=== PATIENT | female | born 1985 | race Caucasian/White ===

== ENCOUNTER 2016-10-09 19:03 | Inpatient (IN) | payer OTHER ==
[~2016-10-09] VITALS: Ht 170.2 cm; Wt 85.7 kg
[~2016-10-09 19:03] MED LIST: AMOX500T2 PO; NAPR500T PO; TRAM50TA2 PO
[2016-10-09 19:14] VITALS: BP 125/80; PULSE 122; RESP 14; O2SAT 96
--- NOTE | 2016-10-09 21:03 | ED.REPORT ---
HPI-General Illness Date of Service October 09, 2016 ED Provider: Cory Bravo Patient is a 31 year old female who presents to the ED complaining of fever onset 4 days ago. Associated symptoms include difficulty breathing, pleuritic right chest pain, inability to get a deep breath, back pain, abdominal pain, and chills. She denies cough, sputum, nausea, vomiting, or any other symptoms. Family at home has pneumonia. She does not have a hx of asthma. She is still using IV heroin, and smokes cigarettes. Nursing Notes Stated Complaint: HARD TO BREATH,PAIN,FEVER Chief Complaint: FLU/Cold Symptoms Nursing Notes Reviewed: Yes Allergies: Coded Allergies: Sulfa (Sulfonamide Antibiotics) (Verified Allergy, Unknown, 02/24/15) Scheduled PRN Tramadol (Tramadol) 50 Mg Tablet 100 MG PO Q6H PRN PRN For Pain General Time Seen by MD: 21:03 Chief Complaint Fever Hx Obtained From: Patient Arrived By: Walk-in Sudden in Onset?: Yes Onset Occurred: 4 days ago Symptom Duration: Since onset Past Medical History Past Medical History Denies Denies: Asthma Reports: Heroin use, IV Drug use Past Surgical History denies Family History Noncontributory Smoking History Current Every Day Smoker Social History Alcohol Use: "Social" Drug Use: In recovery, IV drugs, Other Occupation lives with friend, no work or school Ambulatory Status Independent Review of Systems Full Review of Systems Constitutional: Reports: Chills, Fever Respiratory: Reports: Shortness of breath, Denies: Non-productive cough GI: Reports: Abdominal pain, Denies: Nausea, Vomiting Musculoskeletal: Reports: Back pain Complete sys rev & neg: except as marked. Physical Exam Vital Signs Vital Signs Date Time Temp Pulse Resp B/P Pulse Ox O2 Delivery O2 Flow Rate FiO2 10/09/16 23:30 37 111 33 111/75 91 Room Air 10/09/16 22:18 99 18 96 Room Air 10/09/16 22:16 101 30 102/62 100 Room Air 10/09/16 21:05 38.2 121 18 93/65 95 Room Air 10/09/16 19:14 37.9 122 14 125/80 96 Room Air Initial VS: Reviewed General/Constitutional: Well-developed, Well-nourished Head / Eyes: Atraumatic, Normocephalic Skin: Warm, Dry ENT: Airway patent, Pharynx NL Mouth: Positive: Mucous membranes dry Neck: No adenopathy Respiratory / Chest: No respiratory distress fremitus and rales on the R Cardiovascular: Heart sounds NL, No gallop, No murmurs, No rubs Heart Rate / Rhythm: Positive: Tachycardia Abdomen: Atraumatic, Soft, Non-tender Upper Extremities Upper Extremity / MS: Inspection NL Track knox Lower Extremity / Pelvis / MS: No edema Interpretation & Diagnostics Lab Results Interpretation Result Diagram: 10/09/16212510/09/162125 Test 10/09/16 21:26 10/09/16 21:55 10/09/16 23:44 White Blood Count 5.8th/mm3 (3.8-10.1) Red Blood Count 4.06mil/mm3 (3.90-5.20) Hemoglobin 12.2g/dL (12.0-15.6) Hematocrit 34.4% (35.0-46.0) Mean Corpuscular Volume 84.7fL (81-100) Mean Corpuscular Hemoglobin 30.0pg (27.0-35.0) Mean Corpuscular Hemoglobin Concent 35.5% (32.0-37.0) Red Cell Distribution Width 12.6% (12.3-15.4) Platelet Count 140bil/L (150-400) Neutrophils (%) (Auto) 85.4% (40-74) Lymphocytes (%) (Auto) 5.3% (14-46) Monocytes (%) (Auto) 7.9% (4-12) Eosinophils (%) (Auto) 0% (0-5) Basophils (%) (Auto) 0.2% (0-3) Prothrombin Time 10.2sec (8.1-12.5) Prothromb Time International Ratio 0.95ratio Activated Partial Thromboplast Time 33.3sec (22.8-33.0) D-Dimer 2.26mg/L FEU (<0.50) Sodium Level 122mEq/L (134-144) Potassium Level 3.6mEq/L (3.5-5.2) Chloride Level 83mEq/L (97-108) Carbon Dioxide Level 19mmol/L (18-29) Blood Urea Nitrogen 17mg/dL (6-20) Creatinine 0.68mg/dL (0.57-1.00) Estimat Glomerular Filtration Rate 145mL/min (>59) Glucose Level 101mg/dL (60-99) Osmolality 266 (275-300) Calcium Level 8.5mg/dL (8.5-10.1) Magnesium Level 2.0mg/dL (1.6-2.6) Total Bilirubin 1.1mg/dL (0.0-1.2) Aspartate Amino Transf (AST/SGOT) 49U/L (0-50) Alanine Aminotransferase (ALT/SGPT) 54U/L (0-32) Alkaline Phosphatase 117U/L (25-150) Pro-B-Type Natriuretic Peptide 245.4pg/mL (0-130) Total Protein 7.9g/dL (6.4-8.4) Albumin 2.6g/dL (3.4-5.0) Procalcitonin 17.16ng/mL (0.00-0.08) Thyroid Stimulating Hormone (TSH) 11.340uIU/mL (0.450-4.500) Lactic Acid Level 1.5mmol/L (0.4-2.0) Urine Color Dark yellow (YELLOW) Urine Appearance Hazy (CLEAR,HAZY) Urine pH 6.0 (5.0-8.0) Urine Specific [place] 1.016 (1.003-1.035) Urine Protein Tracemg/dL (NEG,TRACE) Urine Glucose (UA) Negativemg/dL (NEGATIVE) Urine Ketones Negativemg/dL (NEGATIVE) Urine Occult Blood Large (NEGATIVE) Urine Nitrite Positive (NEGATIVE) Urine Bilirubin Negative (NEGATIVE) Urine Urobilinogen Normalmg/dL (NORMAL) Urine Leukocyte Esterase Negative (NEGATIVE) Urine RBC 0-2/hpf (0-2) Urine WBC 6-10/hpf (0-5) Urine Epithelial Cells Many/hpf (NONE-MOD) Urine Crystals None seen (NONE SEEN) Urine Bacteria Many/hpf (NONE-FEW) Urine Hyaline Casts None/lpf (NONE) Urine Granular Casts None seen (NONE SEEN) Urine Waxy Casts None seen (NONE SEEN) Urine Red Blood Cell Casts None seen (NONE SEEN) Urine White Blood Cell Casts None seen (NONE SEEN) Urine Mucus None seen (None Seen) Urine Trichomonas None seen (NONE SEEN) Urine Yeast None (NONE SEEN) Urinalysis Comment None Urine Culture Reflexed Indicated Lab Results Interpretation: Flu neg ECG Interpretation ECG Interpretation: Sinus tachycardia rate 107 Time: 21:52 Interpreted by: ED physician X-Ray Chest Interpretation Chest Xray Interpretation: IMPRESSION: Small right pleural effusion with adjacent atelectasis. Cannot exclude pneumonia. Recommend clinical correlation and radiographic followup to document resolution after treatment and exclude underlying pulmonary nodule. Mild left basilar atelectasis/aspiration Dictated by: Bob Robertson M.D. on 10/09/2016 at 21:37 Approved by: Bob Robertson M.D. on 10/09/2016 at 21:41 View: AP & lat Interpretation / Wet Read by: Interpret - Radiologist CT Chest Interpretation IMPRESSION: No acute occlusive PE. Right lower lobe pneumonia and pleural effusion, statistically. Follow-up is recommended to ensure complete resolution. Sylvia Leary M.D. Study type: CT pulm angiogram Interpretation / Wet Read by: Interpret - Radiologist Procedures Peripheral / EJ IV Start Peripheral / EJ IV Start: Ultrasound guided L arm above AC Time: 22:40 Procedure Performed by: ED physician Size of Catheter: #20 Re-Eval/Medical Decision Med Decision/Clinical Course 31-year-old with chronic IV drug abuse, pleuritic chest pain and shortness of breath proves to have a sizable right pleural effusion, underlying pneumonia, an elevated d-dimer but a negative CT for embolus, and presumptively pneumonia with parapneumonic effusion. Staph has to be primarily suspect, given her IV drug abuse history. SBE is not excluded. She is begun with Zosyn and vancomycin pending blood cultures. Time of Eval: 23:00 Re-Evaluation/Progress Note: Discussed plan for admission. Patient understands and agrees with plan. All questions addressed at this time. Consultation : Referral / Consult Name: Milly Aburto DO Consulted With: Hospitalist Call Returned at: 23:58 Intern Retail: Will see patient, Agrees with eval, Agrees with plan, Accepts admit Note: Discussed pt. case. Accepts admit. Counseled Regarding: Diagnosis, Lab results, Need for admission Discharge & Departure Primary Impression: Pneumonia Pneumonia type: due to unspecified organism Laterality: unspecified laterality Lung location: unspecified part of lung Qualified Code: J18.9 - Pneumonia, unspecified organism Additional Impressions: Intravenous drug abuse Pleural effusion Disposition: ADMITTED TO HOSPITAL Discharge Condition All VS Reviewed: Yes Condition: Improved Referrals: NOPCP (PCP) Scribe Attestation Portions of this note were transcribed by Franck Bain. I, Dr. Ray personally performed the history, physical exam and medical decision-making; I reviewed and confirmed the accuracy of the information in the transcribed note. Signed by: Franck Bain 10/09/16, 2359 Dave Ray MD October 09, 2016 21:03 FRANCK BAIN October 09, 2016 21:10
[2016-10-09 21:05] VITALS: BP 93/65; PULSE 121; RESP 18; O2SAT 95
[2016-10-09] MEDS ORDERED: 0.9% Sodium Chloride 1,000 ML IV ONE ×2 (21:09→21:55)
[2016-10-09] MEDS ORDERED: Albuterol 2.5 mg/3 mL Inhalation Solution NEB ONE (21:10)
[2016-10-09] MEDS ORDERED: Albuterol-Ipratropium 3 mL Inhalation Solution NEB ONE (21:10)
[2016-10-09 21:31] LABS: BASOPHILS % (AUTO) 0.2 % (0-3); EOSINOPHILS % (AUTO) 0 % (0-5); MONOCYTES % (AUTO) 7.9 % (4-12); Mean Corpuscular Volume 84.7 fL (81-100); NEUTROPHILS % (AUTO) 85.4 % (40-74); Platelet Count 140 bil/L (150-400)
--- NOTE | 2016-10-09 21:42 | DRSVH ---
PROCEDURE: X-RAY CHEST, TWO VIEWS ([id number]) INDICATIONS: cough, fever, rt sided cp TECHNIQUE: 2 views of the chest were acquired. COMPARISON: None. FINDINGS: Surgical changes and devices: None. Lungs and pleura: Small right pleural effusion with adjacent atelectasis. No pneumothorax. Left basi lar scattered patchy opacities without focal consolidation Mediastinum: Mediastinal contours are normal. Heart size is normal. Bones and chest wall: No suspicious bony abnormalities. Soft tissues appear unremarkable. IMPRESSION: Small right pleural effusion with adjacent atelectasis. Cannot exclude pneumonia. Recomme nd clinical correlation and radiographic followup to document resolution after treatment and exclude underlying pulmonary nodule. Mild left basilar atelectasis/aspiration Dictated by: Bob Robertson M.D. on 10/09/2016 at 21:37 Approved by: Bob Robertson M.D. on 10/09/2016 at 21:41
[2016-10-09 21:58] LABS: D-Dimer 2.26 mg/L FEU (<0.50); INR 0.95 ratio
[2016-10-09 22:16] VITALS: BP 102/62; PULSE 101; RESP 30; O2SAT 100
[2016-10-09 22:18] VITALS: PULSE 99; RESP 18; O2SAT 96
[2016-10-09 23:30] VITALS: BP 111/75; PULSE 111; RESP 33; O2SAT 91
[2016-10-09 23:51] LABS: APPEARANCE,URINE HAZY (CLEAR,HAZY); COLOR,URINE DARK YELLOW (YELLOW); OCCULT BLOOD,URINE LARGE (NEGATIVE); UROBILINOGEN,URINE NORMAL (NORMAL)
[2016-10-09] MEDS ORDERED: Vancomycin Dose per Pharmacist XX ONE (23:55)
[2016-10-09] MEDS ORDERED: Piperacillin-Tazo 3.375 Gm Inj 3.375 GM in Dextrose 5% Minibag Plus 50 ML IV ONE (23:55)
[2016-10-10] VITALS (15 sets, daily range): BP systolic 105–127; BP diastolic 51–76; PULSE 89–121; RESP 18–26; O2SAT 89–97
[2016-10-10] MEDS ORDERED: Vancomycin Inj 1,500 MG in 0.9% Sodium Chloride 500 ML IV ONE (00:05)
[2016-10-10] MEDS ORDERED: Alum-Mag Hydrox-Simeth 30 mL Suspension PO PRN (00:10)
[2016-10-10] MEDS ORDERED: Ondansetron 2 mg/mL 2 mL Inj IVPUSH PRN (00:10)
[2016-10-10] MEDS ORDERED: Albuterol 2.5 mg/3 mL Inhalation Solution NEB PRN (00:30)
[2016-10-10] MEDS: Heparin 5,000 Unit/mL Inj SUBQ SCH ×3 (01:14→16:27)
--- NOTE | 2016-10-10 01:37 | PCM.HPMED ---
Subjective Date of Service October 10, 2016 Primary Provider: Admitting Physician: Primary Care Physician: Mraii Attending Physician: Admit Status: From the Emergency Department, Full Admit Chief Complaint: Fever. . History of Present Illness: Sarah Melendez is a 31-year-old female who presented to [facility] emergency department complaining of fever 4 days. She reports that 3 days ago she began having fevers. She reports that on the second day she could not take a deep breath due to pleuritic chest pain. She has had associated chills, pleuritic chest pain, difficulty breathing, and rib cage pain. She denies headache, vision changes, sore throat, cough, chest pain, abdominal pain, nausea , vomiting, dysuria, diarrhea or constipation. She reports decreased appetite, however, she has been very thirsty and drinking lots of fluids. She reports that her roommate has pneumonia and she has been in close contact. She does not have a history of asthma. She is still using IV heroin twice daily. She reports she uses clean needles that she receives from the [employer]. She denies sharing needles. She last used IV heroin yesterday. Vital signs in the ER: Temperature 37.9. Pulse 122. Respiratory rate 14. Blood pressure 125/80. Pulse ox 96% on room air. She received Zosyn 3.375 g 1 , vancomycin 1, DuoNeb 1, AccuNeb 1, and Tylenol 975 mg 1. No PCP. Review of Systems: A comprehensive review of systems was conducted with the patient and found to be negative except as above in the History of Present Illness. . Allergies Coded Allergies: Sulfa (Sulfonamide Antibiotics) (Verified Allergy, Unknown, 02/24/15) PMH 1. IV drug abuse. 2. History of Hypothyroidism. 3. Depression and anxiety. 4. Migraines. 5. History of abscesses status post I&D. . Surgical History 1. Incision and drainage of abscess x 2. . Family History Her mother has hypothyroidism. Father is healthy as far she knows. She has 2 brothers and one sister who are all healthy. . Social History Hx Alcohol Use: Yes (has not drank in several years) Hx Substance Use: Yes (IV heroin, smokes methamphetamines) Hx Tobacco Use: Yes Smoking Status: Current Every Day Smoker (1/2 PPD 13 years) Additional Information She is single and has 2 sons, ages 12 and 6 respectively. Her mother takes care of her sons. She is currently unemployed. . Exam Vital Signs Vital Sign - Last Date Time Temp Pulse Resp B/P Pulse Ox O2 Delivery O2 Flow Rate FiO2 10/09/16 23:30 37 111 33 111/75 91 Room Air Intake and Output 10/09/16 10/09/16 10/10/16 Cumulative From/Thru 15:00 23:00 07:00 10/09/16 19:14 - 10/09/16 23:30 Intake Total 1000 ml 1000 ml 2000 ml Balance 1000 ml 1000 ml 2000 ml Intake IV Total 1000 ml 1000 ml 2000 ml Exam General: Young female lying in bed, pale, diaphoretic, slightly shivering, in no acute distress, well-developed, well-nourished, appropriately interactive. HEENT: Normocephalic, atraumatic. External ears without defect. Pupils equal, round, and reactive to light. Anicteric sclerae, moist conjunctivae, and no lid lag. Oropharynx free of erythema and cobble stoning with moist mucosa. Neck: Supple with full range of motion. No lymphadenopathy or thyromegaly. Cardiovascular: Regular rhythm, tachycardic, without murmurs, rubs, or gallops appreciated Pulmonary: Absent breath sounds at right base. Otherwise clear to auscultation bilaterally without crackles, wheezes, or rhonchi. Normal respiratory effort with no use of accessory muscles. Abdomen: Soft, nontender, nondistended, bowel sounds present. No hepatosplenomegaly or masses appreciated. Extremities: No clubbing, cyanosis, or edema. Skin: Normal temperature, turgor, and texture; no rash, ulcers, or subcutaneous nodules appreciated. Lymph: No cervical or supraclavicular lymphadenopathy Neurological: Cranial nerves grossly intact. Normal muscle strength, tone, and bulk. Reflexes, coordination, and sensory function within normal limits. No known gait impairment. Psychiatric: Normal mood and flat affect. Alert and oriented to person, place, and time. . Lab and Diagnostics Labs Item Value Date Time Urine Color Dark yellow 10/09/162343 Urine Appearance Hazy 10/09/162343 Urine pH 6.0 10/09/162343 Urine Specific [place] 1.016 10/09/162343 Urine Protein Trace mg/dL 5/13/17 2344 Urine Glucose (UA) Negative mg/dL 10/09/16 2344 Urine Ketones Negative mg/dL 10/09/16 2344 Urine Occult Blood Large 10/09/16 2344 Urine Nitrite Positive 10/09/16 2344 Urine Bilirubin Negative 10/09/16 2344 Urine Urobilinogen Normal mg/dL 10/09/16 2344 Urine Leukocyte Esterase Negative 10/09/16 2344 Urine RBC 0-2 /hpf 10/09/16 2344 Urine WBC 6-10 /hpf 10/09/16 2344 Urine Epithelial Cells Many /hpf 10/09/16 2344 Urine Crystals None seen 10/09/16 2344 Urine Bacteria Many /hpf 10/09/16 2344 Urine Hyaline Casts None /lpf 10/09/16 2344 Urine Granular Casts None seen 10/09/16 2344 Urine Waxy Casts None seen 10/09/16 2344 Urine Red Blood Cell Casts None seen 10/09/16 2344 Urine White Blood Cell Casts None seen 10/09/16 2344 Urine Mucus None seen 10/09/16 2344 Urine Trichomonas None seen 10/09/16 2344 Urine Yeast None 10/09/16 2344 Urinalysis Comment None 10/09/16 2344 Urine Culture Reflexed Indicated 10/09/16 2344 Item Value Date Time Lactic Acid Level 1.5 mmol/L 10/09/162154 Calcium Level 8.5 mg/dL 10/09/162125 Magnesium Level 2.0 mg/dL 10/09/162125 Total Bilirubin 1.1 mg/dL 10/09/162125 Aspartate Amino Transf (AST/SGOT) 49 U/L 10/09/162125 Alanine Aminotransferase (ALT/SGPT) 54 U/L H 10/09/162125 Alkaline Phosphatase 117 U/L 10/09/162125 Pro-B-Type Natriuretic Peptide 245.4 pg/mL H 10/09/162125 Total Protein 7.9 g/dL 10/09/162125 Albumin 2.6 g/dL L 10/09/162125 Procalcitonin 17.16 ng/mL H 10/09/162125 Item Value Date Time Prothrombin Time 10.2 sec 10/09/162125 Prothromb Time International Ratio 0.95 ratio 10/09/162125 Activated Partial Thromboplast Time 33.3 sec H 10/09/162125 D-Dimer 2.26 mg/L FEU H 10/09/162125 Result Diagram: 10/09/16212510/09/162125 Microbiology Urine culture pending. Blood culture 3 pending. Rapid influenza screen negative. Respiratory viral PCR pending. MRSA pending screen. Strep pneumoniae and legionella urine antigens pending. . X-Rays, CTs and MRIs X-RAY CHEST, TWO VIEWS IMPRESSION: Small right pleural effusion with adjacent atelectasis. Cannot exclude pneumonia. Recommend clinical correlation and radiographic followup to document resolution after treatment and exclude underlying pulmonary nodule. Mild left basilar atelectasis/aspiration Dictated by: Bob Robertson M.D. on 10/09/2016 at 21:37 CTA by Natalie read: IMPRESSION: No acute occlusive PE. Right lower lobe pneumonia and pleural effusion, statistically. Follow-up is recommended to ensure complete resolution. Jesus Manuel Regalado 12-lead ECG EKG: Sinus tachycardia, heart rate 107, normal axis, normal intervals, no pathological Q waves or acute ischemic changes such as ST elevation or depression. . Assessment & Plan Sarah Melendez is a 31-year-old female who presented to [facility] emergency department complaining of fever 4 days. 1. Acute fever, present on admission. Active. - Patient presented for fever 4 days with accompanying chills, shortness of breath, and right rib cage pain. - Likely secondary to parapneumonic effusion and RLL pneumonia. - Chest x-ray demonstrated small right effusion with adjacent atelectasis, as above. Reviewed personally. - CTA demonstrated no evidence of PE with right lower lobe pneumonia and pleural effusion, as above. - Lactic acid normal. - Blood cultures 3 pending. - Pro calcitonin highly elevated at 17.16. - Urinalysis indicated culture, however, sample was contaminated as there were many epithelial cells. - Ordered MRSA screen, pending. - Ordered viral respiratory PCR, pending. - Ordered strep pneumoniae and legionella urine antigens, pending. - Ordered HIV and hepatitis C serologies. - Ordered DuoNeb's 4 times a day while awake and AccuNeb's every 4 hours as needed for shortness of breath. - Low threshold for CT abdomen and pelvis if rib pain worsens. - Hydrocodone 5-10 mg every 4 hours as needed for pain. - Continue Zosyn 3.375 mg every 8 hours and vancomycin per pharmacy - The patient will likely need a thoracentesis tomorrow for drainage of her large parapneumonic effusion. 2. Acute hyponatremia, present on admission. Active. - Patient appears euvolemic on clinical exam and is asymptomatic. Hyponatremia is likely SIADH. - Ordered urine sodium, urine osmolality and serum osmolality. - Placed patient on a fluid restriction of 1 L. - Patient received 2 L NS in ED. - Day team to consider consulting nephrology if hyponatremia persists. Chronic problems: 3. IV heroin abuse, chronic. Active. - Patient reports last using IV heroin yesterday and smoking methamphetamines 4 days ago. - Ordered urine drug screen, pending. - Hydrocodone 5 mg every 4 hours as needed for pain. 4. History of hypothyroidism. - The patient states that she has not been on medication for her hypothyroidism for over a year. - Ordered TSH, pending. PRN antiemetics: Zofran and Maalox. PRN bowel regimen: Senna and MiraLAX. PRN analgesics: Tylenol and hydrocodone. Patient is admitted under inpatient status with expected length of stay greater than 2 midnights due to severity of presenting symptoms, risk of adverse event, and complexity of treatment plan. . Resuscitation Status: CPR: Attempt Resuscitation Attending Statement The patient was seen and examined together with Dr. Jain on 10/10/2016 and I agree with the history, exam and plan as outlined in the note above. Phuong Jain DO October 10, 2016 00:15 Milly Aburto DO October 10, 2016 04:44
--- NOTE | 2016-10-10 01:39 | PCM.CONPHA ---
Subjective Date of Service: October 10, 2016 Reason for Pharmacy Consult: Vancomycin Dosing Objective Vital Signs Date Time Temp Pulse Resp B/P Pulse Ox O2 Delivery O2 Flow Rate FiO2 10/10/16 00:54 36.8 121 20 112/51 93 Room Air 10/10/16 00:40 111 20 127/76 97 Room Air 10/09/16 23:30 37 111 33 111/75 91 Room Air 10/09/16 22:18 99 18 96 Room Air 10/09/16 22:16 101 30 102/62 100 Room Air 10/09/16 21:05 38.2 121 18 93/65 95 Room Air 10/09/16 19:14 37.9 122 14 125/80 96 Room Air Intake and Output 10/08/16 10/09/16 10/10/16 00:00 00:00 00:00 Intake Total 2000 ml Balance 2000 ml Weight (Kilograms): 77.27 Height (Feet): 5 Height (Inches): 7 Test 10/09/16 21:26 10/09/16 21:55 10/09/16 23:44 10/10/16 01:04 White Blood Count 5.8th/mm3 (3.8-10.1) Red Blood Count 4.06mil/mm3 (3.90-5.20) Hemoglobin 12.2g/dL (12.0-15.6) Hematocrit 34.4% (35.0-46.0) Mean Corpuscular Volume 84.7fL (81-100) Mean Corpuscular Hemoglobin 30.0pg (27.0-35.0) Mean Corpuscular Hemoglobin Concent 35.5% (32.0-37.0) Red Cell Distribution Width 12.6% (12.3-15.4) Platelet Count 140bil/L (150-400) Neutrophils (%) (Auto) 85.4% (40-74) Lymphocytes (%) (Auto) 5.3% (14-46) Monocytes (%) (Auto) 7.9% (4-12) Eosinophils (%) (Auto) 0% (0-5) Basophils (%) (Auto) 0.2% (0-3) Prothrombin Time 10.2sec (8.1-12.5) Prothromb Time International Ratio 0.95ratio Activated Partial Thromboplast Time 33.3sec (22.8-33.0) D-Dimer 2.26mg/L FEU (<0.50) Sodium Level 122mEq/L (134-144) Potassium Level 3.6mEq/L (3.5-5.2) Chloride Level 83mEq/L (97-108) Carbon Dioxide Level 19mmol/L (18-29) Blood Urea Nitrogen 17mg/dL (6-20) Creatinine 0.68mg/dL (0.57-1.00) Estimat Glomerular Filtration Rate 145mL/min (>59) Glucose Level 101mg/dL (60-99) Calcium Level 8.5mg/dL (8.5-10.1) Magnesium Level 2.0mg/dL (1.6-2.6) Total Bilirubin 1.1mg/dL (0.0-1.2) Aspartate Amino Transf (AST/SGOT) 49U/L (0-50) Alanine Aminotransferase (ALT/SGPT) 54U/L (0-32) Alkaline Phosphatase 117U/L (25-150) Pro-B-Type Natriuretic Peptide 245.4pg/mL (0-130) Total Protein 7.9g/dL (6.4-8.4) Albumin 2.6g/dL (3.4-5.0) Procalcitonin 17.16ng/mL (0.00-0.08) Lactic Acid Level 1.5mmol/L (0.4-2.0) Urine Color Dark yellow (YELLOW) Urine Appearance Hazy (CLEAR,HAZY) Urine pH 6.0 (5.0-8.0) Urine Specific [place] 1.016 (1.003-1.035) Urine Protein Tracemg/dL (NEG,TRACE) Urine Glucose (UA) Negativemg/dL (NEGATIVE) Urine Ketones Negativemg/dL (NEGATIVE) Urine Occult Blood Large (NEGATIVE) Urine Nitrite Positive (NEGATIVE) Urine Bilirubin Negative (NEGATIVE) Urine Urobilinogen Normalmg/dL (NORMAL) Urine Leukocyte Esterase Negative (NEGATIVE) Urine RBC 0-2/hpf (0-2) Urine WBC 6-10/hpf (0-5) Urine Epithelial Cells Many/hpf (NONE-MOD) Urine Crystals None seen (NONE SEEN) Urine Bacteria Many/hpf (NONE-FEW) Urine Hyaline Casts None/lpf (NONE) Urine Granular Casts None seen (NONE SEEN) Urine Waxy Casts None seen (NONE SEEN) Urine Red Blood Cell Casts None seen (NONE SEEN) Urine White Blood Cell Casts None seen (NONE SEEN) Urine Mucus None seen (None Seen) Urine Trichomonas None seen (NONE SEEN) Urine Yeast None (NONE SEEN) Urinalysis Comment None Urine Culture Reflexed Indicated Assessment/Plan Assessment/Plan Vancomycin management per pharmacy Indication: pneumonia Vancomycin trough goal: 15-20 Nephrotic risks: IV drug use Pertinent info: - SCr: 0.68 - Procalcitonin: 17.16 - WBC: 5.8 - Patient received loading dose of vancomycin 1500 mg IV one time at 0114. Give vancomycin 1250 mg Q8H starting at 0830. Trough has been ordered for 10/11 @ 0000 (30 min prior to 4th dose). Pharmacy to continue to monitor and dose vancomycin. Thank you, Deisy Calzada Pharmacist Deisy Calzada October 10, 2016 01:39
[2016-10-10 01:42] LABS: OSMOLALITY, URINE 265 mOs/kH2O (250-1200)
[2016-10-10] MEDS: HYDROcodone-APAP 5-325 mg Tablet PO PRN ×2 (01:51→09:04)
--- NOTE | 2016-10-10 01:54 | NUR ---
MRSA and Respiratory PCR SENT
[2016-10-10] MEDS: Piperacillin-Tazo 3.375 Gm Inj 3.375 GM in Dextrose 5% Minibag Plus 50 ML IV SCH ×3 (02:00→16:26)
--- NOTE | 2016-10-10 02:08 | NUR ---
Admission Note Pt admitted to [facility] on wheelchair from ER at 0050. Alert and orientedx3, c/o right back pain 10/10 r/o cough or deep breathing, mild SOB, denies cough/n/v/fever, but feel "cold". BP 112/51 HR 121, RR20, [id number]% on RA, T 36.8. Coarse lung sounds at left, decreased lung sounds at right. Tele applied, ST 124 per cnc service technician. HR regular, no murmur. Abdomen soft, non tender, BT slightly hypoactive. No edema at all extremities. Zosyn and Vanco administered. Jackson given after received the order. Pt placed on contact precaution to r/o MRSA. Pt instructed fluid restriction 1000ml/24hr. Call light oriented to pt. Care ongoing.
--- NOTE | 2016-10-10 03:04 | NUR ---
Skin flushed Skin flushed, diffused redness at upper chest and face, denies itchy. T 38.3. Vanco running, not sure redness caused by fever or red man syndrome r/o vanco. Dr. Jain notified, does not think it caused by vanco. Tylenol requested.
[2016-10-10] MEDS: Acetaminophen IV 1,000 MG in IV Premix 1 EACH IV PRN ×3 (03:14→22:38)
[2016-10-10] MEDS: Albuterol-Ipratropium 3 mL Inhalation Solution NEB SCH ×4 (07:47→19:42)
[2016-10-10] MEDS ORDERED: Vancomycin Dose per Pharmacist XX SCH (08:30)
--- NOTE | 2016-10-10 08:35 | DRSVH ---
PROCEDURE: CT ANGIO CHEST PULMONARY EMBOLISM ([id number]) INDICATIONS: Right pleural effusion and elevated d-dimer. TECHNIQUE: After the administration of intravenous contrast, 2 mm thick sections acquired from the pulmonary api charito to the posterior costophrenic angles. 3-dimensional maximum intensity projection (MIP) coronal a nd sagittal reformats were then acquired through the thorax. For radiation dose reduction, the follo wing was used: automated exposure control, adjustment of mA and/or kV according to patient size. COMPARISON: [facility], CR, XR CHEST 2VW, 10/09/2016, 21:31. FINDINGS: Image quality: There is mild motion artifact. Pulmonary arteries: Pulmonary arteries demonstrate no intraluminal filling defects to suggest centra l pulmonary embolism. Evaluation of subsegmental branches is limited due to motion artifact and airs pace consolidation in the lung bases. Lungs and pleura: There are moderate to large right and trace left pleural effusions. There is conf luent consolidation within the right lower lobe with air bronchograms. Patchy areas of consolidation are also demonstrated within the inferior right middle lobe, left lower lobe and left lingula. A fe w small peripheral nodular opacities within the anterior right middle lobe and left lingula are also noted. Mild compressive atelectasis is demonstrated in the right lung along with pleural effusion. Mediastinum: Heart size is normal, without pericardial effusion. No mediastinal or hilar adenopathy . Thoracic aorta is normal in caliber and enhancement. Esophagus is normal in caliber, with a small hiatal hernia. Bones and chest wall: No suspicious bony lesions. Ribs and thoracic spine appear intact throughout. No axillary or supraclavicular adenopathy. Abdomen: Visualized upper abdomen demonstrates enlargement of the spleen and possible enlargement of the liver, which are both incompletely included on the current study. IMPRESSION: 1. No evidence of central pulmonary embolism. Evaluation of distal subsegmental branches is limited due to motion artifact and airspace consolidation. 2. Moderate to large right pleural effusion and trace left effusion. 3. Bibasilar consolidation most prominent within the right lower lobe most likely represents pneumon ia. 4. A few peripheral small nodular opacities demonstrated in the right middle lobe and left lingula a re also likely related to pneumonia. Consider short-term followup to demonstrate resolution if clinic ally indicated. 5. Splenomegaly with suggestion of hepatomegaly. Recommend correlation clinically and if indicated further evaluation may be obtained with ultrasound. Dictated by: Ambrocio Hill M.D. on 10/10/2016 at 8:20 Approved by: Ambrocio Hill M.D. on 10/10/2016 at 8:28
[2016-10-10 08:52] LABS: BASOPHILS % (AUTO) 0.2 % (0-3); EOSINOPHILS % (AUTO) 0 % (0-5); MONOCYTES % (AUTO) 6.4 % (4-12); Mean Corpuscular Hemoglobin 29.6 pg (27.0-35.0); Mean Corpuscular Volume 85.2 fL (81-100); NEUTROPHILS % (AUTO) 88.9 % (40-74); Platelet Count 120 bil/L (150-400)
[2016-10-10] MEDS: Vancomycin Inj 1,250 MG in 0.9% Sodium Chloride 250 ML IV SCH ×2 (09:02→16:27)
[2016-10-10 09:25] LABS: Magnesium 2.2 mg/dL (1.6-2.6)
[2016-10-10] MEDS ORDERED: levoFLOXacin Inj 750 MG in IV Premix 1 EACH IV SCH (10:45)
--- NOTE | 2016-10-10 11:09 | PCM.PNMED ---
Subjective Date of Service October 10, 2016 Subjective 4 days of fever without cough, admitted with multifocal pneumonia, UTI, red blotchy spot anterior r mcrae, current IV heroin use. Notes pleuritic chest pain, no cough, no dysuria. Exam Vital Signs Vital Sign - Last Date Time Temp Pulse Resp B/P Pulse Ox O2 Delivery O2 Flow Rate FiO2 10/10/16 10:37 37.1 104 20 121/72 94 Room Air Intake and Output 10/09/16 10/09/16 10/10/16 Cumulative From/Thru 15:00 23:00 07:00 10/09/16 19:14 - 10/10/16 04:23 Intake Total 1000 ml 1671 ml 2671 ml Balance 1000 ml 1671 ml 2671 ml IV Total 1000 ml 1671 ml 2671 ml Exam Skin; multiple neddle knox in lines over viens red raised slightly tender erythematous lesion, 3-4 cm round, ant mcrae right, ink knox to border applied today CV; questionalble soft systolic murmur Resp; bronquial breath souds and decreased breath sound right side, no rhonch or wheezing GI; soft non avute, not tender Neuro 2-12 intact, no gross motor or sensory defects Lab and Diagnostics Result Diagram: 10/10/16 0815 10/10/16 0815 Microbiology Urine culture pending. Blood culture 3 pending. Rapid influenza screen negative. Respiratory viral PCR pending. MRSA pending screen. Strep pneumoniae and legionella urine antigens pending. . X-Rays, CTs and MRIs X-RAY CHEST, TWO VIEWS IMPRESSION: Small right pleural effusion with adjacent atelectasis. Cannot exclude pneumonia. Recommend clinical correlation and radiographic followup to document resolution after treatment and exclude underlying pulmonary nodule. Mild left basilar atelectasis/aspiration Dictated by: Bob Robertson M.D. on 10/09/2016 at 21:37 CTA by Natalie read: IMPRESSION: No acute occlusive PE. Right lower lobe pneumonia and pleural effusion, statistically. Follow-up is recommended to ensure complete resolution. Sylvia Leary M.D . 12-lead ECG EKG: Sinus tachycardia, heart rate 107, normal axis, normal intervals, no pathological Q waves or acute ischemic changes such as ST elevation or depression. . Assessment & Plan Sarah Melendez is a 31-year-old female who presented to [facility] emergency department complaining of fever 4 days. 1-Sepsis, poa, resolved -HR >100, RR 30 -UTI an multifocl pneumonia with effusion, red blotche spot on ant r mcrae -look for unifying infection; echo ordered, blood cultures pending, HIV testing , ID consult ordered for tomorrow 2- Multifocal pneumonia, poa, active -on Vanco and Zosyn, add Levaquin -pcr resp negative -cultures pending -cxr in am, if any worse pulmonary consult 3. Right pleural effusion, poa, active -diagnostic and therapeutic thoracentesis ordered 4 UTI, poa, active -again asymptomatic -above antibiotics shoudl cover -cullt is gram neg rods so far 5.Red area anterior R mcrae, poa, active -ink applied to borders follow 6. Hyponatremia, poa, resolved 7.Hypothyroidism, poa, active -patient has not been on her thyroid for several months -await t4, noting elevated TSH -check t4 consider startin synthroid 8- elevated liver function tests' poa, active -hepaatitis panel sent 9-Pain management, -dilaudid 2-4 PO q 4 hour prn 10- IV heroin use, poa, active -social service Patient is admitted under inpatient status with expected length of stay greater than 2 midnights due to severity of presenting symptoms, risk of adverse event, and complexity of treatment plan. . VTE Mechanical Devices: Intermittant Pneumatic CD Resuscitation Status: CPR: Attempt Resuscitation Louisa Em MD October 10, 2016 11:09
--- NOTE | 2016-10-10 14:39 | NUR ---
Social Work: Brief Note Data: Pt is a 31 y/o female admitted for RLL pneumonia pleural effusion IVDA SIRS. Pt's PCP is not listed, pt's insurance is [employer]. EMR reviewed. Pt reports current IV heroin and meth use. BLOW DOWN OPERATOR spoke with pt's nurse, pt not appropriate for assessment today. BLOW DOWN OPERATOR will follow up with Chemical Dependency assessment when appropriate. Assessment: Pt who is independent at baseline. IV drug use. Plan: BLOW DOWN OPERATOR spoke with pt's nurse, pt not appropriate for assessment today. BLOW DOWN OPERATOR will follow up with Chemical Dependency assessment when appropriate. LASHAUN Fernandez
--- NOTE | 2016-10-10 18:18 | NUR ---
Temp/Pain/O2 Pt afebrile during shift until mid afternoon, temp 100.6 F, pt flushed and diaphoretic. IV APAP given and upon recheck, temp 98.3 F. Pt c/o increased back pain rating it at 9/10. 1 norco administered in am, and newly ordered PO dilaudid given in afternoon. After administration of dilaudid, pt slept soundly for several hours, and O2 sat was high 80s on RA. 2L O2 NC applied and Cpox put on. Sats increased to the mid 90s. Pt woke up to use the bathroom, removed O2, and has been sitting up eating dinner, when awake sats back to high 90s on RA.
[2016-10-11] VITALS (14 sets, daily range): BP systolic 102–118; BP diastolic 65–78; PULSE 85–110; RESP 16–30; O2SAT 91–97
[2016-10-11] MEDS ORDERED: 0.9% Sodium Chloride 250 ML ONE
[2016-10-11] MEDS ORDERED: Vancomycin Serum Trough XX ONE
[2016-10-11] MEDS: Piperacillin-Tazo 3.375 Gm Inj 3.375 GM in Dextrose 5% Minibag Plus 50 ML IV SCH ×2 (00:06→10:05)
[2016-10-11] MEDS: Heparin 5,000 Unit/mL Inj SUBQ SCH ×3 (00:07→17:11)
[2016-10-11] MEDS: Vancomycin Inj 1,250 MG in 0.9% Sodium Chloride 250 ML IV SCH ×2 (01:29→10:05)
--- NOTE | 2016-10-11 05:21 | NUR ---
Fever Pt had an episode of fever from the start of shift. Per WHALE TRAINER pt had 37.8. Pt reports of feeling hot. IV tylenol administered PRN. Rechecked and has been afebrile from the rest of the shift. Pt reports of pain on her back 02/06. Administered Dilaudid 4mg PRN for pain control. No complains upon re-assessment. HS IV Abx administered as scheduled. Fluid restriction per MD orders. Hourly rounding.
[2016-10-11 06:17] LABS: BASOPHILS % (AUTO) 0.2 % (0-3); EOSINOPHILS % (AUTO) 0.9 % (0-5); MONOCYTES % (AUTO) 12.2 % (4-12); Mean Corpuscular Hemoglobin 29.8 pg (27.0-35.0); Mean Corpuscular Volume 85.6 fL (81-100); NEUTROPHILS % (AUTO) 77.1 % (40-74); Platelet Count 113 bil/L (150-400)
[2016-10-11 07:08] LABS: Hepatitis A Antibody IgM Negative (Negative); Hepatitis B Core Antibody IgM Negative (Negative)
[2016-10-11 07:16] LABS: ERYTHROCYTE SEDIMENTATION RATE 60 mm/hr (0-32)
[2016-10-11] MEDS: Albuterol-Ipratropium 3 mL Inhalation Solution NEB SCH ×4 (07:29→17:34)
[2016-10-11] MEDS ORDERED: Potassium Chloride 20 mEq SR Tablet PO ONE (07:45)
--- NOTE | 2016-10-11 09:03 | DRSVH ---
PROCEDURE: US GUIDED THORACENTESIS BY REFERRING PHYSICIAN ([id number]) INDICATIONS: pleural effusion rt TECHNIQUE: The indications, alternatives, benefits, risks, and complications of the procedure were explained to the patient. Written informed consent was obtained and placed in the chart. The chest was examined sonographically, and an appropriate site was chosen for thoracentesis. The skin was prepared and bernard ped in the usual sterile fashion, and 1% lidocaine was infiltrated from the skin down through the ple ural surface. A 19-gauge catheter-covered needle was then introduced into the pleural space, the cat heter was advanced and the needle was withdrawn, and thereafter pleural fluid was aspirated. The cat heter was then removed and a dressing was applied. COMPARISON: None. FINDINGS: Access site: Right hemithorax. Needle: One-Step centesis catheter with introducer needle. Fluid volume and description: 20 cc. Purulent fluid. Fluid sent for diagnostic testing: Cytology and multiple chemistries. Medications: 1% lidocaine for local anaesthesia. Complications: None; post-procedural chest radiograph is pending to assess for pneumothorax. IMPRESSION: Successful ultrasound-guided thoracentesis. Dr. Ponce telephoned with results at 0845 hrs. 10/11/2016. Dictated by: Jam COTO Interpreted: Ja Workman MD on 10/11/2016 at 9:01 Transcribed by: FLORES on 10/11/2016 at 9:03 Approved by: Ja Workman M.D. on 10/11/2016 at 10:47
--- NOTE | 2016-10-11 09:25 | DRSVH ---
PROCEDURE: X-RAY CHEST ONE VIEW ([id number]) INDICATIONS: POST THORACENTESIS TECHNIQUE: One view of the chest was acquired. COMPARISON: [facility], CT, CT ANGIO CHEST PE, 10/09/2016, 22:51. [facility] , CR, XR CHEST 2VW, 10/09/2016, 21:31. FINDINGS: Surgical changes and devices: None. Lungs and pleura: No pneumothorax. There is a small right effusion with right basilar consolidation. Mild bibasilar infiltrate or atelectasis. Mediastinum: Mediastinal contours appear normal. Heart size is normal. Bones and chest wall: No suspicious bony lesions. Overlying soft tissues appear unremarkable. IMPRESSION: No pneumothorax post thoracentesis. Dictated by: Ja Workman M.D. on 10/11/2016 at 9:21 Approved by: Ja Workman M.D. on 10/11/2016 at 9:23
[2016-10-11 09:41] LABS: MONOCYTES,BODY FLUID 0 %; OTHER CELLS,BODY FLUID 0
[2016-10-11 10:03] LABS: GLUCOSE,PLEURAL FLUID < 2 mg/dL; TOTAL PROTEIN,PLEURAL FLUID 4.8 g/dL
--- NOTE | 2016-10-11 13:11 | ABG ---
DateTimeAnalyzed 13:04:00 -_ pH ____7.456 - 7.350 7.450 pCO2 ___38.1__ -mmHg 35.0 45.0 pO2 ___58.5__ -mmHg 70.0 100 HCO3- ___26.5__ -mmol/L 22.0 26.0 ABE ____3.0__ -mmol/L -2.0 2.0 tHb ___12.3__ -g/dL 12.0 18.0 O2Hb ___90.3__ -% 95.0 COHb ____1.2__ -% 1.5 MetHb ____0.9__ -% 0.4 1.5 sO2 ___92.2__ -% FIO2 ___21.0__ -% Drawn By lw - Date/Time Notified____ 13:11:00 -_ Notified By lw - Notified Whom ___Dr. Best - B 756 -mmHg tO2 ___15.6__ -Vol% Bruce test _Positive -
[2016-10-11] MEDS ORDERED: cefTRIAXone Inj 2,000 MG in Dextrose 5% Minibag Plus 50 ML IV SCH ×2 (13:30→13:35)
[2016-10-11] MEDS ORDERED: HYDROmorphone 0.5 mg/0.5 mL iSecure Syringe IVPUSH PRN (13:35)
[2016-10-11] MEDS ORDERED: levoFLOXacin Inj 750 MG in IV Premix 1 EACH IV SCH (14:00)
[2016-10-11 14:10] LABS: Bilirubin, Direct 0.7 mg/dL (0.0-0.3)
--- NOTE | 2016-10-11 14:13 | NUR ---
Faxed clinicals to [facility] [phone] REF # [id number]
--- NOTE | 2016-10-11 15:09 | PCM.CHPMED ---
Subjective Date of Service: October 11, 2016 Provider requesting consult: Sherrell Ponce DO Primary Physician: Admitting Physician: Milly Aburto DO Primary Care Physician: Nopcp Attending Physician: Milly Aburto DO Chief Complaint: Chief Complaint: Right sided pneumonia History of Present Illness: PULMONOLOGY CONSULTATION: Patient is a 31 year old female with a history of IV heroin use, hypothyroidism , depression/anxiety, and migraine. She presented to [facility] on 10/09/16 with about 2 days of worsening shortness of breath. At the time of this interview the patient is rather somnolent making this history brief and possibly unreliable. Patient reported shortness of breath and right sided chest pain worse with deep inspiration. She has the same dyspnea both at rest and with activity. She also noted fever and rigors but no sweats. She has been fatigued with a diminished appetite. She denies wheezing, cough and sputum production. Ancillary complaints include redness of her left hand, an erythematous nodule of her right mcrae and left knee pain. Since being admitted she believes that she feels better in regards to her dyspnea and appetite. Detailed pulmonary/exposure history could not be obtained as the patient would fall asleep between questions. She did deny any history of asthma. She is a smoker with 1/2PPD history for the past 13 years. Patient does use both IV heroin (daily?) and inhaled methamphetamine. No current use of alcohol was elucidated. Review of Systems: Constitutional: Reports: Chills, Fever, Weakness, Denies: Sweats Cardiovascular: Reports: Chest Pain (right sided, worse with inspiration), Denies: Edema, Irregular Heart Rate Respiratory: Reports: SOB with Exertion, Shortness of Breath, Denies: Cough, Sputum, Wheezing Gastrointestinal: Denies: Abdominal Pain, Diarrhea, Nausea, Vomiting Genitourinary: Denies: Dysuria, Hematuria Musculoskeletal: Reports: Back Pain, Knee Pain (left) PMH Past Medical History 1. IV drug abuse. 2. History of Hypothyroidism. 3. Depression and anxiety. 4. Migraines. 5. History of abscesses status post I&D. Surgical History 1. Incision and drainage of abscess x 2. Home Medications Recorded in EMR: Tramadol 100 mg Q6H PRN pain Allergies: Coded Allergies: Sulfa (Sulfonamide Antibiotics) (Verified Allergy, Unknown, 02/24/15) Family History Family History Her mother has hypothyroidism. Father is healthy as far she knows. She has 2 brothers and one sister who are all healthy. Social History Hx Alcohol Use: Yes (has not drank in several years)Hx Substance Use: Yes (IV heroin, smokes methamphetamines)Hx Tobacco Use: Yes Smoking Status: Current Every Day Smoker (1/2 PPD 13 years) Exam Vital Signs Vital Sign - Last Date Time Temp Pulse Resp B/P Pulse Ox O2 Delivery O2 Flow Rate FiO2 10/11/16 14:11 37.3 105 18 113/68 94 Room Air 10/11/16 12:04 1.00 Intake and Output 10/10/16 10/10/16 10/11/16 Cumulative From/Thru 15:00 23:00 07:00 10/09/16 19:14 - 10/11/16 06:30 Intake Total 400 ml 1947 ml 543 ml 5561 ml Output Total 800 ml 1200 ml 2000 ml Balance -400 ml 747 ml 543 ml 3561 ml Intake Oral 400 ml 1160 ml 1560 ml IV Total 787 ml 543 ml 4001 ml Output Urine Total 800 ml 1200 ml 2000 ml # Bowel Movements 1 1 General: Oriented X3, Cooperative, No Acute Distress, Other (Somnolent) Head: Normal Chest & Lungs: Clear to auscultation & percussion, Diminished breath sounds ( Most prominent over the right lower lobe) Cardiovascular: Regular Rate/Rhythm, Normal S1, Normal S2, No Murmurs/Rubs/ Gallops Pulses: Radial (present and equal bilaterally), Dorsalis Pedis (present and equal bilaterally) Abdomen: Non-tender, Non-distended, Normoactive bowel tones, Soft Genitourinary: Son Absent Extremities: No cyanosis/clubbing/edma bilat Skin: Redness (Right mcrae, left 3rd and 4th MCP), Other (Injection sites noted throughout both upper extremities most notably on the forearms and inbetween the fingers) Neurological: Normal Speech, Other (Could not fully participate in a more detailed neurological exam) Lab and Diagnostics Result Diagram: 10/11/1655410/11/16554 Assessment & Plan Assessment 1) Right lower lobe pneumonia, acute, present on admission. - Likely represents an empyema as the patient has group A strep bacteremia and thoracentesis was unsuccessful at removing a large volume. - Pleural fluid obtained appears exudative by Lights criteria (pleural fluid LDH greater than 2/3 upper limit of normal serum level). Highly suspicious for infectious etiology. - Consultation with general surgery is indicated. Patient most likely needs a VATS. - Antibiotics per Dr. Love. 2) Strep pyogenes (group A) bacteremia, acute, present on admission. - Dr. Love of infectious disease has been consulted. Please continue antibiotics per his recommendations. - TTE pending community engagement coordinator reading. If negative, consider ANNE. 3) Acute encephalopathy. - Possibly secondary to sepsis or opiate use. - ABG not showing hypercapnia, is hypoxemic on room air. - Minimize sedating medications. - Continue to monitor closely. May consider moving the patient to [facility]. - Continue O2 supplementation with an O2 saturation goal 92-96%. 4) Regions of erythema. - Right mcrae, left MCP joints, left knee. - May represent other foci of infection. The left hand is particularly concerning as she admits to injecting in that area. - Continue to monitor these areas closely. - Could consider aspiration of the left knee if it becomes more swollen or erythematous. - Continue antibiotics per Dr. Love. Problems: VTE Mechanical Devices: Intermittant Pneumatic CD Resuscitation Status: CPR: Attempt Resuscitation Attending Statement The patient was seen and examined together with Dr. Best on 10/11/2016 and I agree with the history, exam and plan as outlined in the note above. Meme Best DO October 11, 2016 15:09 Shon Carrasco MD Nov 08, 2016 09:09
--- NOTE | 2016-10-11 15:30 | NUR ---
Transfer Pt transferred from [facility] [place] [facility]010 to [facility] Rm 2024. No complains of increased pain or SOB, slight temp noted at last vitals. Report given to Jacqueline Jenkins RN.
--- NOTE | 2016-10-11 15:33 | DRSVH ---
[facility] [address] [place] [address] Echocardiogram Report Name: PAO GARCIA LStudy Date: 10/11/2016 Height: 67 in Hospital Exam Location: [facility] Weight: 171 lb Gender: Female BSA: 1.9 m2 : 1985 Age: 31 yrs BP: 102/66 mmHg Reason For Study: FEVER, IVDA History: IVDA, smoker Ordering Physician: Performed By: [facility] Interpretation Summary The left ventricle is normal in size. The ejection fraction is estimated to be 60-65%. The right ventricle is normal in size and function. No significant valvular pathology seen. No obvious valvular vegetation seen. Consider ANNE if clinical suspicion for endocarditis is high. There is a moderate right-sided pleural effusion. Procedure: A two-dimensional transthoracic echocardiogram with color flow and Doppler was performed. The study quality was technically adequate. There is no prior echocardiogram noted for this patient. The patient was in sinus tachycardia with heart rates between 100-105 bpm during the exam. Left Ventricle: The left ventricle is normal in size. Proximal septal thickening is noted. There is no echo evidence for significant left ventricular outflow tract obstruction. There is no thrombus. The ejection fraction is estimated to be 60-65%. There are no focal wall motion abnormalities. Spectral Doppler of the mitral valve shows a normal E/A wave ratio. Right Ventricle: The right ventricle is normal in size and function. Atria: Both atria are normal in size. There is no Doppler evidence for an interatrial shunt. Mitral Valve: The mitral valve is normal in structure and function. There is no vegetation seen on the mitral valve. There is trace mitral regurgitation. Aortic Valve: The aortic valve is normal in structure and function. There is no aortic valvular vegetation. No aortic regurgitation is present. Tricuspid Valve: The tricuspid valve is normal in structure and function. There is no tricuspid valve vegetation. The right ventricular systolic pressure is estimated at 28 mmHg assuming a right atrial pressure of 3 mm Hg. There is trace tricuspid regurgitation. Pulmonic Valve: The pulmonic valve is normal in structure and function. There is trace pulmonic regurgitation. Great Vessels: The aortic root is normal size. The ascending aorta is normal in size. The aortic arch is normal in size. The IVC is of normal diameter and collapses greater than 50% with a sniff. This suggests a low right atrial pressure of 3 mm Hg. Pericardium/ Pleura There is a trivial pericardial effusion noted. There are no echocardiographic indications of cardiac tamponade. There is a moderate right-sided pleural effusion. MMode/2D Measurements & Calculations LVIDd: 4.7 cm LA dimension: 3.9 cm RA long axis LVOT diam: 2.3 cm LVIDs: 2.6 cm Ao root diam FS: 44.2 % LA A2 area: 18.4 cm RA area EPSS: 0.28 cm LA A4 area: 18.4 cm asc Aorta Diam IVSd: 1.2 cm LA length (vol) : 14.6 cm LVPWd: 0.88 cm RA vol Ao Arch Diam (Prox LA vol: 58.6 ml : 43.1 ml Trans): 2.8 cm LA vol index RA : 22.8 mm2 IVC diam: 1.3 cm LV lopez. diameter/BSA LV sys. diameter/BSA RVD1 (basal) RVD2 (mid): 2.7 cm (cm/m^2): 2.5 (cm/m^2): 1.4 Doppler Measurements & Calculations Ao V2 max MV E max abhishek MV E/A: 1.5 TR max abhishek : 171.5 cm/sec : 78.3 cm/sec Med Peak E' Abhishek : 250.5 cm/sec Ao max PG MV A max abhishek TR max PG : 11.8 mmHg : 50.8 cm/sec E/E' med: 7.3 : 25.1 mmHg Ao mean PG MV P1/2t: 39.8 msec PA V2 max : 88.9 cm/sec LVOT Max Abhishek PA mean PG : 112.9 cm/sec PA Accel Time RODDY(I,D): 2.8 cm : 0.15 sec sev ratio MV dec time MV P1/2t max abhishek Ao V2 mean LV V1 max PG : 0.14 sec : 118.4 cm/sec MVA(P1/2t): 5.5 cm2 Ao V2 VTI: 29.6 cm LV V1 VTI RODDY(V,D): 2.6 cm2 : 20.3 cm PA V2 mean RODDY indexed to BSA : 58.3 cm/sec (cm^2/m^2): 1.5 Reading Physician:ISABEL
--- NOTE | 2016-10-11 15:57 | NUR ---
[facility] to [facility] transfer Pt. transferred to [facility] at 1530. On arrival, pt. alert and LACEY. Belongings were transferred to room as well. Call light within reach.
--- NOTE | 2016-10-11 16:37 | NUR ---
Resp Pt refused Tx at this time, said she wants to sleep.
[2016-10-11] MEDS: HYDROmorphone 0.5 mg/0.5 mL iSecure Syringe IVPUSH PRN ×2 (17:12→21:09)
--- NOTE | 2016-10-11 18:25 | NUR ---
Lovenox Pt. denied pain. Black contreras has large bruising area. No drainage or oozing from R. groin cath site. Pt. performed Lovenox self-injection properly with supervision. He reported he is comfortable to give himself injection at home. Pt's questions answered. Addendum: 10/11/16 at 1829 by MARCELLA ROMERO RN Disregard the above note. Wrong patient.
[2016-10-11] MEDS: 0.9% Sodium Chloride 1,000 ML IV SCH (18:48)
--- NOTE | 2016-10-11 19:30 | CONS ---
[address] [address] CONSULTATION REPORT PATIENT: PAO GARCIA : 1985 MR#: [id number] ADMIT: 10/10/2016 JOB ID: [id number] DATE OF SERVICE: 10/11/[address] Sherrell Ponce of Internal Medicine for this timely consult. REASON FOR CONSULTATION: Left-sided group A strep empyema with a high-grade group A strep bacteremia in an IV drug user. HISTORY OF PRESENT ILLNESS: The patient is a 31-year-old who has been a frequent IV heroin user for at least six years. She uses heroin on a daily or b.i.d. basis and has up until her admission here 1-1/2 days ago. She reports that she has had some right pleuritic pain going back a couple of weeks but it has gotten much worse in the last few days and it has been associated with fevers, chills, anorexia, shortness of breath and malaise. Because of these symptoms, she eventually sought evaluation in the emergency department and was admitted on Tuesday, October 10 in the evening. At that time, she was febrile and looked quite toxic. Multiple appropriate studies were donating done including blood cultures and chest radiographs which disclosed a high-grade group A strep bacteremia as well as a large right-sided pleural effusion. The patient was initially started on antibiotics which included vancomycin and Zosyn and subsequently levo was added for reasons which are not entirely clear. ID consultation is requested at this time regarding optimal management of this process. Note that I have discussed the case in person with Dr. Carrasco of the Pulmonary service, who is also consulted, and Dr. Ponce of the hospitalist service as well as the admitting physician, Dr. Phuong Jain. PAST MEDICAL HISTORY: 1. Intravenous drug use x6 years. 2. Depression and anxiety. 3. Migraine headaches. 4. Hypothyroidism. SOCIAL HISTORY: The patient uses methamphetamine by the inhalational route as well as heroin by an IV route. She is also a tobacco smoker. She does not drink alcohol. She grew up in [place] and now lives in [place]. She is unemployed and has two children being raised by her mother. FAMILY HISTORY: Negative for tuberculosis in any 1st or 2nd-degree relatives. REVIEW OF SYSTEMS: The patient has intermittent headaches, which are now about at baseline. She denies any change in mental status. She has not had any change in vision. No sores in the mouth and she denies pharyngitis. When asked specifically if she licks needles prior to injection, the patient says "not usually", which I would interpret as positive and suggest a mechanism for this infection. The patient has no stiff neck. She is short of breath but has no cough, and she has quite severe right pleuritic chest pain which has been escalating over a period of weeks. She has anorexia but no nausea, vomiting, or diarrhea. She has no dysuria, urgency, or frequency. She has no weakness in the limbs. No swelling of the joints. She does have a couple of tender red areas including over her left 3rd and 4th proximal digits and as well as her right mcrae. At least one of these may be due to a failed injection site, but the one on the leg is unexplained. The remainder of the complete review of systems was negative. PHYSICAL EXAMINATION: Reveals an afebrile woman, temperature 37.1 right now. She was febrile, however, 38.3, during her first 24 hours here in the hospital. Pulse 91, respiratory rate 20, blood pressure 118/70, saturating 97% on 1 L. The patient's mental status is clear. She appears depressed and has a flat affect. There is no evidence for head trauma or temporal wasting. Her eyes without conjunctival hemorrhages or scleral icterus. Nose is normal. Oral cavity without thrush or pharyngitis. No hairy leukoplakia seen on the tongue. Teeth in fair repair. Neck is supple. No nodes are present. No JVD. Lungs with almost absent breath sounds on the right. Left lung is clear. Cardiac tones without any murmurs at whatsoever. Regular rate and rhythm noted. Abdomen is soft and without mass though the liver extends 3 cm below the right costal margin and it is firm and tender. No ascites is noted. She does not have a Son catheter. On her right upper arm there are two small macular erythematous areas which she states represent failed attempts at IV injection prior to admission. On her lower extremity, there is a erythematous annular 2 cm [place]a'[place] present over the mcrae which is of unknown origin. She said it was painful earlier but it is not now. Additionally, over her left dorsal hand, there is inflammation, erythema and tenderness of the proximal 3rd and 4th finger digit. There are no peripheral stigmata of endocarditis on the hands. The patient is entirely intact neurologically. There is no evidence of synovitis of any joint. She has excellent strength throughout and, as mentioned, her mental status is normal. There is no skin rash except for the ones that I just mentioned. LABORATORIES: Include white count 4700, platelet count 113,000, creatinine is 0.57. Total bilirubin 1.4. AST 67, ALT 52, alk phos 156, procalcitonin was 17 on admission, the next day 12 and today 8, so continuing a downward trend from very high levels, however. Urinalysis had 6-10 white cells and grew E. coli. In the absence of symptoms, I would term this asymptomatic bacteriuria. Her pleural fluid is extraordinary. She has an unknown white count as so far they have been unable to quantitate it, but it is primarily polys. The LDH in the pleural fluid is 12,500 with undetectable glucose which in and of itself is basically diagnostic of an empyema. Hep C antibody is positive. HIV negative. Urine Legionella and pneumococcal antigens are negative. The pleural fluid is remarkable for many white cells and gram-positive cocci have already been seen on a Gram stain. Blood cultures are growing group A strep from 3/3 bottles collected on admission. Respiratory viral PCR panel negative. MRSA panel negative. IMAGING: Images of the chest are quite extraordinary. There is an almost complete opacification of the right lung secondary to a large right pleural effusion. Bibasilar consolidation is also noted, but this may just be compressive atelectasis. A large spleen is noted as well as hepatomegaly which goes along with our physical exam regarding hepatomegaly. IMPRESSION: This is an extremely unfortunate young woman who appears to have suffered two major complications of her injection drug use. Most importantly, she has a bacteremic group A strep empyema of the right chest which is going to require decortication as well as a long course of antibiotics. Also of concern is the fact so many blood cultures were positive so quickly, which raises the possibility of endocarditis which must be excluded even though I think it is unlikely. The 2nd major problem here is that she seems to have fairly advanced hepatitis C despite her young age. She seems to have not only an enlarged tender liver with LFTs, but perhaps some splenomegaly which would suggest that this is quite chronic and perhaps a more acute problem than hepatitis C usually represents. RECOMMENDATIONS: 1. This case discussed in great detail in person with Pulmonary and Medicine teams. 2. I would stop her vancomycin, Zosyn and levofloxacin. 3. Will start her on ceftriaxone 2 g once a day which is our primary treatment for the group A strep empyema. In addition, will add some oral Flagyl in case there are anaerobes present. Note that about 1/4 of empyemas have anaerobes even though they are often difficult to prove. 4. The patient will require a transthoracic echo and if that is negative, we were going to need to consider a transesophageal echo. 5. VATS would be the preferred procedure here. Group A strep empyemas are very hard to manage with chest tubes and going directly the VATS would seem appropriate. 6. We discussed with the patient the need to stop doing IV drugs due to the fact she seems to have suffered two very serious complications this time. We also discussed that if she cannot quit doing IV heroin, she should stop licking the needles which is the probable source of this organism.
--- NOTE | 2016-10-11 22:25 | PCM.PNMED ---
Subjective Date of Service October 11, 2016 Subjective 31F with IVDU, meth abuse hx is here with pneumonia, parapneumonic effusions. She is positive for hep C, negative for HIV, US Echo showed no concern for vegetations She also has an ID consult to r/o endocarditis. Fungitell tests pending as well as pleural fluid cell cnt etc. She denies overnight fevers, chills, n/v. Exam Vital Signs Vital Sign - Last Date Time Temp Pulse Resp B/P Pulse Ox O2 Delivery O2 Flow Rate FiO2 10/11/16 04:22 37.0 10/11/16 01:07 85 20 102/66 93 Room Air 10/10/16 14:01 2.00 Intake and Output 10/10/16 10/10/16 10/11/16 Cumulative From/Thru 15:00 23:00 07:00 10/09/16 19:14 - 10/11/16 00:30 Intake Total 400 ml 1947 ml 5018 ml Output Total 800 ml 1200 ml 2000 ml Balance -400 ml 747 ml 3018 ml Intake Oral 400 ml 1160 ml 1560 ml IV Total 787 ml 3458 ml Output Urine Total 800 ml 1200 ml 2000 ml # Bowel Movements 1 1 Exam Skin; multiple needle knox in lines over veins red raised slightly tender erythematous lesion, 3-4 cm round, ant mcrae right, ink knox to border applied today, left arm and hand also have cellulitic changes CV; RRR, no s3/s4 Resp; bronquial breath souds and decreased breath sound right lower side, no rhonch or wheezing GI; soft non acute, not tender Neuro no gross motor or sensory defects psych: neg for anxiety HEENT: NCAT Eyes: PERRLA, Scleral Anicteric Mouth: Mouth Normal, Mucous Membranes dry Neck: Supple, no Thyromegaly, trachea central. IVs and Medications Medications Reviewed: Medications were reviewed in detail Lab and Diagnostics Laboratory Tests Test 10/10/16 11:50 10/11/16 00:30 10/11/16 05:55 10/11/16 08:30 Vancomycin Level Trough 9.9mcg/mL White Blood Count 4.7th/mm3 (3.8-10.1) Red Blood Count 3.89mil/mm3 (3.90-5.20) Hemoglobin 11.6g/dL (12.0-15.6) Hematocrit 33.3% (35.0-46.0) Mean Corpuscular Volume 85.6fL (81-100) Mean Corpuscular Hemoglobin 29.8pg (27.0-35.0) Mean Corpuscular Hemoglobin Concent 34.8% (32.0-37.0) Red Cell Distribution Width 13.1% (12.3-15.4) Platelet Count 113bil/L (150-400) Neutrophils (%) (Auto) 77.1% (40-74) Lymphocytes (%) (Auto) 9.4% (14-46) Monocytes (%) (Auto) 12.2% (4-12) Eosinophils (%) (Auto) 0.9% (0-5) Basophils (%) (Auto) 0.2% (0-3) Erythrocyte Sedimentation Rate 60mm/hr (0-32) Sodium Level 134mEq/L (134-144) Potassium Level 3.1mEq/L (3.5-5.2) Chloride Level 96mEq/L (97-108) Carbon Dioxide Level 24mmol/L (18-29) Blood Urea Nitrogen 8mg/dL (6-20) Creatinine 0.57mg/dL (0.57-1.00) Estimat Glomerular Filtration Rate 177mL/min (>59) Glucose Level 120mg/dL (60-99) Calcium Level 8.1mg/dL (8.5-10.1) Magnesium Level 2.0mg/dL (1.6-2.6) Total Creatine Kinase 30U/L (21-215) Procalcitonin 8.01ng/mL (0.00-0.08) Free Thyroxine 0.33ng/dL (0.82-1.77) Human Chorionic Gonadotropin, Qual Negative (Negative) Body Fluid Source Pleural fluid Body Fluid Color Straw (Clear) Body Fluid Appearance Turbid Body Fluid WBC /mm3 Body Fluid RBC /mm3 Body Fluid Polynuclear WBCs 87% Body Fluid Lymphocytes 7% Body Fluid Monocytes 0% Body Fluid Eosinophils 6% Body Fluid Basophils 0% Body Fluid Comment Pleural Fluid Total Protein 4.8g/dL Pleural Fluid Glucose < 2mg/dL Microbiology 10/09/16 Blood Culture - Preliminary, Resulted Strep Pyogenes Beta (Grp A) 10/11/16 Fungal Culture, Received Pending 5/14/17 MRSA (PCR) - Final, Complete 10/09/16 Urine Culture - Final, Complete Escherichia Coli Result Diagram: 10/10/16 0815 10/10/16 0815 Microbiology Urine culture pending. Blood culture 3 pending. Rapid influenza screen negative. Respiratory viral PCR pending. MRSA pending screen. Strep pneumoniae and legionella urine antigens pending. . X-Rays, CTs and MRIs X-RAY CHEST, TWO VIEWS IMPRESSION: Small right pleural effusion with adjacent atelectasis. Cannot exclude pneumonia. Recommend clinical correlation and radiographic followup to document resolution after treatment and exclude underlying pulmonary nodule. Mild left basilar atelectasis/aspiration Dictated by: Bob Robertson M.D. on 10/09/2016 at 21:37 CTA by Natalie read: IMPRESSION: No acute occlusive PE. Right lower lobe pneumonia and pleural effusion, statistically. Follow-up is recommended to ensure complete resolution. Jesus Manuel Regalado 12-lead ECG EKG: Sinus tachycardia, heart rate 107, normal axis, normal intervals, no pathological Q waves or acute ischemic changes such as ST elevation or depression. . Cardiac Echo Impressions august For Study: FEVER, IVDA History: IVDA, smoker Ordering Physician: [facility]formed [facility] Interpretation Summary The left ventricle is normal in size. The ejection fraction is estimated to be 60-65%. The right ventricle is normal in size and function. No significant valvular pathology seen. No obvious valvular vegetation seen. Consider ANNE if clinical suspicion for endocarditis is high. There is a moderate right-sided pleural effusion. Assessment & Plan Sarah Melendez is a 31-year-old female who presented to [facility] emergency department complaining of fever 4 days. 1-Sepsis, poa, resolved -HR >100, RR 30 -UTI an multifocl pneumonia with effusion, red blotche spot on ant r mcrae -Hep C positive, HIV neg -- fungitell pending -- US echo showed no concern for vegetations, she will need at ANNE. Discussed this with Dr. Saini ground water contractor salesperson new cars. He says that this is to be scheduled for the OR. Dr. minor says he will arrange for this during the OR tomorrow as he is planning to take her for a VATS procedure - Blood cx showed Group B strep pyogenes -- ID is consulted Dr. Love has seen the patient will appreciate their recommendations 2- Multifocal pneumonia, poa, active ID discontinued, Zosyn, Levaquin. They have her on Flagyl and ceftriaxone -pcr resp negative -cultures pending - CXR neg for pneumothorax -- Darrian puss 20 cc was drained per radiology. Pulmonology is consulted, they have seen the patient. Moved patient up to second floor, yellow team will see patient on 10/12. Pulmonology planning to do VATS tomorrow a.m. we will keep her nothing by mouth after midnight -- Elevated LDH, nonexistent glucose from the pleural fluid 3. Right pleural effusion, poa, active -diagnostic and therapeutic thoracentesis ordered -- -- Darrian puss 20 cc was drained per radiology. Pulmonology is consulted, will see the patient. -- Follow pleural fluid cx: Elevated LDH, nonexistent glucose from the pleural fluid 4 UTI, poa, active -again asymptomatic -above antibiotics shoudl cover -cullt is gram neg rods so far : pansensitive 5.Red area anterior R mcrae, poa, active -ink applied to borders follow 6. Hyponatremia, poa, resolved -- Most likely due to hypovolemia. -- We will start her on normal saline at 100 mL/h as she has been tachycardic and dehydrated 7.Hypothyroidism, poa, active -patient has not been on her thyroid for several months -Repeated TSH and T4: Within normal 8- elevated liver function tests' poa, active -hepaatitis panel sent: Hep C positive -- She will need to be followed up as outpatient 9-Pain management, -dilaudid 2-4 PO q 4 hour prn 10- IV heroin use, poa, active -social service Patient is admitted under inpatient status with expected length of stay greater than 2 midnights due to severity of presenting symptoms, risk of adverse event, and complexity of treatment plan. She will likely need a lengthy stay due to above complications, plan for extended Ale bx in [facility] . Pain Evaluation: Adequate Pain Control VTE Mechanical Devices: Intermittant Pneumatic CD Resuscitation Status: CPR: Attempt Resuscitation Time spent 30 min Sherrell Ponce DO October 11, 2016 05:40
[2016-10-12] VITALS (22 sets, daily range): BP systolic 97–125; BP diastolic 55–79; PULSE 69–99; RESP 16–36; O2SAT 94–100
[2016-10-12] MEDS: Heparin 5,000 Unit/mL Inj SUBQ SCH ×3 (01:12→16:30)
--- NOTE | 2016-10-12 01:15 | NUR ---
Report given and care transferred to the receiving RN (Meme Lewis) at the bedside.
[2016-10-12] MEDS: HYDROmorphone 0.5 mg/0.5 mL iSecure Syringe IVPUSH PRN ×6 (02:59→23:08)
[2016-10-12] MEDS: 0.9% Sodium Chloride 1,000 ML IV SCH ×2 (04:20→14:20)
--- NOTE | 2016-10-12 05:10 | NUR ---
PAIN C/O pain to back. Dilaudid given with some relief as patient was observed dozing. Denies SOB. Will continue to monitor closely over night.
--- NOTE | 2016-10-12 08:41 | PCM.CONSUR ---
Subjective Date of Service: October 12, 2016 History of Present Illness Surgery consult: Attending physician Dr. Bryant, resident physician Dr. Tsai Reason for consult: Possible VATS procedure Ms. Melendez is a 31 female past medical history of IV daily heroin use who presented to secondary to fever and chest pain 5 days. She states that she has had some right pruritic type chest pain for the last 2 weeks that had progressively gotten worse. At time of admission she reported associated chills , SOB or difficulty breathing secondary to pain caused by inhalation. She denied headache, vision changes, cardiac chest pain, abdominal pain, nausea/ vomiting or any GI or symptoms. ROS otherwise negative. Infectious disease of the pulmonology service are also following this case. CT of the chest showed large right pleural effusion, trace left pleural effusion. Thoracentesis done 10/10/2016 showed purulent fluid which is sent for further diagnostic testing. Per ID empyema is most likely district representative of group A strep would benefit most from VATS procedure White blood cell count has not been elevated though she has had some intermittent low-grade fevers over the last 4 days. Allergy Allergies: Coded Allergies: Sulfa (Sulfonamide Antibiotics) (Verified Allergy, Unknown, 02/24/15) Medications Tramadol (Tramadol) 50 Mg Tablet 100 MG PO Q6H PRN PRN For Pain Prescribed by: DELORES LEE MD Last Taken: Unknown Dose on 10/09/16 Discontinued Medications Amoxicillin (Amoxicillin) 500 Mg Tablet 500 MG PO TID Prescribed by: DELORES LEE MD Naproxen (Naprosyn) 500 Mg Tablet 500 MG PO BID PRN PRN For Pain Prescribed by: DELORES LEE MD Past Surgical History Surgeries: Yes (incision and drainage of abscesses 2) Patient/Family Past Surgical: Positive for:: Accept Blood Products?, Denies:: Blood Transfusions Other Pertinent Data: Past medical history: IV drug abuse History of hypothyroidism Depression and anxiety Migraines Additional Information Family history: Father, 2 brothers one sister all healthy. Mother with hypothyroidism Social history: Unmarried, lives in [place] with friends. 2 children ages 12 and 6 who are cared for by family. Unemployed. Social History Hx Alcohol Use: Yes (has not drank in several years) Hx Substance Use: Yes (IV heroin, smokes methamphetamines) Hx Tobacco Use: Yes Objective Exam Vital Signs & I/O Vital Sign- Last 8 Hours Date Time Temp Pulse Resp B/P Pulse Ox O2 Delivery O2 Flow Rate FiO2 10/12/16 04:34 37.5 99 36 118/75 Room Air 10/12/16 00:30 Supplement Oxygen Intake and Output- Last 8 Hour 10/12/16 Cumulative From/Thru 07:00 10/09/16 19:14 - 10/12/16 06:30 Intake Total 1291 ml 7727 ml Output Total 1100 ml 4575 ml Balance 191 ml 3152 ml Intake Oral 400 ml 2835 ml IV Total 891 ml 4892 ml Output Urine Total 1100 ml 4575 ml # Bowel Movements 2 4 Lab & Micro Results Laboratory Tests Test 10/11/16 08:30 10/11/16 14:20 10/12/16 05:25 Body Fluid Source Pleural fluid Body Fluid Color Straw (Clear) Body Fluid Appearance Turbid Body Fluid WBC /mm3 Body Fluid RBC /mm3 Body Fluid Polynuclear WBCs 87% Body Fluid Lymphocytes 7% Body Fluid Monocytes 0% Body Fluid Eosinophils 6% Body Fluid Basophils 0% Body Fluid Lactate Dehydrogenase 88003D/L Body Fluid Comment Pleural Fluid Total Protein 4.8g/dL Pleural Fluid Glucose < 2mg/dL Hepatitis A Antibody Total Positive (Negative) Hepatitis B Surface Antibody Reactive (.) Hepatitis B Core Total Antibody Negative (Negative) Sodium Level 134mEq/L (134-144) Potassium Level 3.3mEq/L (3.5-5.2) Chloride Level 99mEq/L (97-108) Carbon Dioxide Level 25mmol/L (18-29) Blood Urea Nitrogen 8mg/dL (6-20) Creatinine 0.46mg/dL (0.57-1.00) Estimat Glomerular Filtration Rate 227mL/min (>59) Glucose Level 93mg/dL (60-99) Calcium Level 7.8mg/dL (8.5-10.1) Microbiology 10/09/16 Blood Culture - Final, Complete Strep Pyogenes Beta (Grp A) 10/11/16 Fungal Culture, Received Pending 10/10/16 MRSA (PCR) - Final, Complete 10/09/16 Urine Culture - Final, Complete Escherichia Coli Result Diagram: 10/11/16 0555 10/12/16 0525 H&P Surgical Exam Exam General: Oriented X3, Cooperative, No Acute Distress, Other (Somnolent, flat affect) HEENT: Within normal limits & unremarkable Respiratory: Breath Sounds Diminished (markedly decreased lung sounds in all lung todd on the right, left lung clear to auscultation) Cardiac: Regular Rate/Rhythm, No Murmurs/Rubs/Gallops Abdomen: Normal bowel sounds, No masses, Other (no ascites) Assessment & Plan Assessment Assessment & Plan: 1. Right lower lobe empyema - CT imaging showed large right pleural effusion - Most likely secondary to group A strep pyogenes as seen in blood cultures - Thoracentesis showed exudative purulent fluid, cultures pending - Infectious disease following antibiotics to include ceftriaxone and Flagyl - VATS procedure, patient signed consent - Nothing by mouth - Stop heparin DVT prophylaxis prior to surgery 2. Bacteremia - Blood cultures as above - TTE read pending, if negative will need a ANNE VTE Mechanical Devices: Intermittant Pneumatic CD Resuscitation Status: CPR: Attempt Resuscitation Attending Statement: I personally interviewed and examined the pt, and I agree with Dr. Tsai's assessment and plan. Schedule for R VATS. EIMR TSAI DO October 12, 2016 08:41 Nestor Bryant MD October 14, 2016 12:57
[2016-10-12] MEDS: Albuterol-Ipratropium 3 mL Inhalation Solution NEB SCH (08:44)
[2016-10-12] MEDS ORDERED: fentaNYL-PF 50 mCg/mL 2 mL Inj ONE (08:54)
[2016-10-12] MEDS ORDERED: Rocuronium 10 mg/mL 5 mL Inj ONE (08:54)
[2016-10-12] MEDS ORDERED: Ondansetron 2 mg/mL 2 mL Inj ONE (08:54)
[2016-10-12] MEDS ORDERED: Neostigmine 1 mg/mL 10 mL Inj ONE (08:54)
[2016-10-12] MEDS ORDERED: Propofol 10,000 mCg/mL 20 mL Inj ONE (08:54)
[2016-10-12] MEDS ORDERED: Phenylephrine/NS 100 mCg/mL 10 mL Syringe IVPUSH ONE (08:54)
[2016-10-12] MEDS ORDERED: Glycopyrrolate 0.2 MG/ML 1mL Inj ONE (08:54)
--- NOTE | 2016-10-12 10:00 | PROG NOTE ---
[address] [address] PROGRESS NOTE PATIENT: PAO GARCIA : 1985 MR#: [id number] ADMIT: 10/10/2016 JOB ID: [id number] DATE: 10/12/2016 INFECTIOUS DISEASE FOLLOW UP NOTE: REASON FOR FOLLOWUP: Group A strep bacteremia with group A strep right-sided empyema. INTERVAL HISTORY: Overnight, the patient has felt a little bit better. Her fevers and chills have diminished. She continues to have right-sided pleuritic chest pain and shortness of breath but less so than previously. She is noticing some nausea and generalized malaise consistent with heroin withdrawal and recall that this patient is a fairly frequent user of heroin. No new symptoms have occurred. No skin rash specifically. PHYSICAL EXAMINATION: Reveals a woman who was having fairly significant fevers. She is now afebrile and has been for about 24 hours. Temperature 36.6, pulse 74, respiratory rate 16 down from 36 noted in the computer. Blood pressure 106/70 saturating well on room air. Overall she looks more comfortable. No conjunctival hemorrhages. No oral thrush. Neck is supple. Lungs with decreased breath sounds, dramatically so at the right base where her pleural effusion is located. Cardiac tones without murmur. No peripheral stigmata of endocarditis. Abdomen with a palpable liver edge as previously noted. LABORATORIES: Include white count of 4700, platelets 113,000 which is stable. Sed rate 60. AST is 60, ALT 48, albumin 2.3. Procalcitonin still very elevated but now down to 4.6, down from 17 on admission, so a positive trend. Creatinine 0.46. Serologic studies are interesting. The patient is immune to hepatitis A and hepatitis B as she has hepatitis A total antibody and hepatitis B surface antibody that are positive. She does have hep C by antibody and we are waiting on viral load and genotype at this point. HIV is negative. Micro includes positive blood cultures from multiple sets for group A strep. Urine grew E coli which is asymptomatic bacteriuria. The pleural fluid is culture negative but had very low glucose, very high LDH and most importantly had gram-positive cocci which is diagnostic really of group A strep empyema in this setting. IMAGING: Done yesterday shows right pleural effusion as previously noted. IMPRESSION: This is a young woman who is an IV heroin addict and presents with classic bacteremic right-sided group A strep empyema. She is starting to improve on ceftriaxone. Virtually all of these patients would require decortication rather than simple chest tube drainage due to the tenacious and destructive nature of this empyema. The patient is scheduled for a VATS today. The other concern here is group A strep endocarditis which does occur occasionally both in normals and in IV drug users. We have a transthoracic which does not show endocarditis but she certainly deserves a ANNE to help us determine her length of therapy. RECOMMENDATIONS: 1. Will continue with ceftriaxone 2 g once a day and she will probably require this for at least a couple weeks. 2. Will continue with oral Flagyl for possible uncultured anaerobes in the pleural fluid. 3. ANNE today. 4. VATS procedure today. 5. We await the hep C viral load and genotype. 6. She does not require hep A or hep B vaccines as most deep with hep C do because she is already immune either by virtue of prior disease or by immunization.
--- NOTE | 2016-10-12 10:43 | PCM.PNMED ---
Subjective Date of Service October 12, 2016 Subjective PULMONOLOGY PROGRESS NOTE Patient reports that she is feeling less short of breath this morning. She did not feel the need to use her nasal cannula last night. She did need to have the head of her bed raised to breathe more comfortably. She denies any continued chest pain. She did not note any fever or chills overnight. She does feel a bit like she is withdrawing this morning but does not further qualify her symptoms. Exam Vital Signs Vital Sign - Last Date Time Temp Pulse Resp B/P Pulse Ox O2 Delivery O2 Flow Rate FiO2 10/12/16 08:45 74 16 94 Room Air 10/12/16 08:41 36.6 106/70 10/11/16 12:04 1.00 Intake and Output 10/11/16 10/11/16 10/12/16 Cumulative From/Thru 15:00 23:00 07:00 10/09/16 19:14 - 10/12/16 06:30 Intake Total 300 ml 575 ml 1291 ml 7727 ml Output Total 975 ml 500 ml 1100 ml 4575 ml Balance -675 ml 75 ml 191 ml 3152 ml Intake Oral 300 ml 575 ml 400 ml 2835 ml IV Total 891 ml 4892 ml Output Urine Total 975 ml 500 ml 1100 ml 4575 ml # Bowel Movements 1 2 4 Exam General: Alert, Oriented X3, Cooperative, No Acute Distress Head: Normal, atraumatic HEENT: PERRLA, EOMI, sclera anicteric Chest & Lungs: Clear to auscultation & percussion, Diminished breath sounds ( Most prominent over the right lower lobe) Cardiovascular: Regular Rate/Rhythm, Normal S1, Normal S2, No Murmurs/Rubs/ Gallops Pulses: Radial (present and equal bilaterally), Dorsalis Pedis (present and equal bilaterally) Abdomen: Tender RUQ, Non-distended, Normoactive bowel tones, Soft Genitourinary: Son Absent Extremities: No cyanosis/clubbing/edema bilat Skin: Erythema improved (Right mcrae, left 4th MCP/proximal phalange), Other ( Injection sites noted throughout both upper extremities most notably on the forearms and in between the fingers) Neurological: Grossly intact with equal strength in upper and lower extremities , Cranial nerves grossly intact, Normal Speech IVs and Medications Medications Reviewed: Medications were reviewed in detail Lab and Diagnostics Result Diagram: 10/11/16 0555 10/12/16 0525 Assessment & Plan 1) Right lower lobe pneumonia, acute, present on admission. - Likely represents an empyema as the patient has group A strep bacteremia and thoracentesis was unsuccessful at removing any significant volume of fluid. - Pleural fluid obtained appears exudative by Lights criteria (pleural fluid LDH greater than 2/3 upper limit of normal serum level). Highly suspicious for infectious etiology. - Plan per Dr. Bryant of general surgery is for VATS to be performed today. - Antibiotics per Dr. Love. 2) Strep pyogenes (group A) bacteremia, acute, present on admission. - Dr. Love of infectious disease has been consulted. Please continue antibiotics per his recommendations. - ANNE ordered and pending. 3) Acute encephalopathy, improved. - Possibly secondary to sepsis or opiate use. - ABG not showing hypercapnia, is hypoxemic on room air. - Minimize sedating medications. - Continue O2 supplementation with an O2 saturation goal 92-96%. 4) Regions of erythema, improved. - Right mcrae, left MCP joints, left knee. - May represent other foci of infection. The left hand is particularly concerning as she admits to injecting in that area. - Continue to monitor these areas closely. - Could consider aspiration of the left knee if it becomes more swollen or erythematous. - Continue antibiotics per Dr. Love. 5) Polysubstance abuse. - Patient endorsing symptoms of withdrawal - likely heroin withdrawal and possibly methamphetamine. - Continue to use opiate as needed for pain control. May need to consider the addition of benzodiazepines, but will defer to the primary team for management. - Continue to encourage cessation of drug use and try to provide her with the resources to for help outside the hospital. We will continue to follow along closely with you in the care of this patient. VTE Mechanical Devices: Intermittant Pneumatic CD Resuscitation Status: CPR: Attempt Resuscitation Attending Statement The patient was seen and examined together with Dr. Best on 10/12/2016 and I agree with the history, exam and plan as outlined in the note above. Meme Bset DO October 12, 2016 10:43 Shon Carrasco MD Nov 08, 2016 11:09 and dehydrated 7.Hypothyroidism, poa, active -patient has not been on her thyroid for several months -Repeated TSH and T4: Within normal 8- elevated liver function tests' poa, active -hepaatitis panel sent: Hep C positive -- She will need to be followed up as outpatient 9-Pain management, -dilaudid 2-4 PO q 4 hour prn 10- IV heroin use, poa, active -social service Patient is admitted under inpatient status with expected length of stay greater than 2 midnights due to severity of presenting symptoms, risk of adverse event, and complexity of treatment plan. She will likely need a lengthy stay due to above complications, plan for extended Ale bx in [facility] . VTE Mechanical Devices: Intermittant Pneumatic CD Resuscitation Status: CPR: Attempt Resuscitation Meme Best DO October 12, 2016 10:43
[2016-10-12] MEDS ORDERED: KCl 40 mEq/D5W 500 mL 40 MEQ in IV Premix 500 EACH IV ONE (10:45)
--- NOTE | 2016-10-12 11:29 | PROG NOTE ---
[address] [address] PROGRESS NOTE PATIENT: PAO GARCIA : 1985 MR#: [id number] ADMIT: 10/10/2016 JOB ID: [id number] DATE: 10/12/2016 SUBJECTIVE: The reason for cardiology evaluation, I was asked by the hospitalist team and ID to do transesophageal echocardiogram to rule out endocarditis. The patient has history of IV drug abuse with IV heroin and presented with group A strep bacteremia and group A strep right-sided empyema. Dr. Love asked us to do a ANNE to rule out endocarditis. The patient denies any history of dysphagia or stomach ulcer or esophageal varices or liver cirrhosis or ascites or loose teeth or bleeding issues. At present, she is not having any chills or rigor. She denies hematuria. She denies new rash. She has some tender spot on the left dorsal aspect of her hands. Denies previous history of endocarditis. No active chest pain or worsening shortness of breath, PND, orthopnea, palpitation. PAST MEDICAL HISTORY: 1. History of IV drug abuse for six years. 2. Depression. 3. Anxiety. 4. Migraine. 5. Hypothyroidism. PAST SURGICAL HISTORY: As stated. SOCIAL HISTORY: As stated. FAMILY HISTORY: Noncontributory. ALLERGIES: The patient is allergic to SULFA. MEDICATION: In the hospital, she is gettin. Metronidazole 500 mg q.12. 2. Zosyn. 3. Vancomycin, which has been discontinued. 4. She is on albuterol inhalers as well along with Dilaudid and subcu heparin. REVIEW OF SYSTEMS: A 10-point review of systems were obtained. They are negative except as stated above. PHYSICAL EXAMINATION: 106/70, heart rate 74, respiratory rate 16-36, oxygen saturation room air 94% and no significant jaundice. Neck: No apparent JVP. Chest: Decreased air entry at the right base with dullness. CVS: Clinically S1 appears normal. P2 does not appear to be prominent. No S3. No S4. Clinically I do not appreciate any significant murmur. Abdomen: No obvious pulsatile mass. Extremities: No significant pedal edema. Vascular: No evidence of critical limb ischemia. BEREAVEMENT PROGRAM COORDINATOR: Alert, oriented to time, place and person. LABORATORIES: Sodium 134, potassium 3.3, BUN 8, creatinine 0.46. Magnesium 2.0. Procalcitonin 4.61. WBC 4.7, hemoglobin 11.6, platelets 113, INR 0.95. Echocardiogram on October 11 revealed normal size left ventricle with LV ejection fraction 60%-65%, normal right ventricular function, moderate right-sided pleural effusion without any obvious vegetation. ASSESSMENT AND PLAN: The patient has group A strep bacteremia with group G Strep right-sided empyema with history of IV drug abuse and being planned to have right empyema surgery. Dr. Love wants us to do transesophageal echocardiogram to rule out endocarditis in view of group A strep bacteremia. Benefits and risk of ANNE which includes, but not limited to, risk of bleeding, GI perforation, aspiration, anesthesia related complication, etc., and details discussed with the patient. Patient understood. All the questions were answered. She verbalizes understanding. Will recommend correction of electrolytes as well. Will proceed with ANNE with the help of anesthesia. The patient was examined in the presence of our resident Phuong. TOTAL TIME SPENT: Today about 40 minutes.
[2016-10-12] MEDS ORDERED: Lactated Ringer's 1,000 ML IV ONE ×2 (11:53→13:43)
--- NOTE | 2016-10-12 12:58 | NUR ---
Social Work Note: Continued Discharge Planning/Attempted CD Assessment Data& Assessment: EMR reviewed. Per MD in morning rounds, pt is having VATS procedure completed today. SW to follow for potential IV abx recommendations based off of ID MD consult post VATS procedure. SW met with pt at bedside to check in and assess for any unmet needs. Pt declined completing CD assessment at this time as she was resting before her procedure. Pt did confirm she is open with [facility] program and outpt services. Pt declined desire to speak with [facility] staff at bedside during this hospitalization. Pt denies any SI or thoughts of harming herself or others. SW to follow up with pt regarding CD assessment when appropriate. Pt denies any other needs at this time. SW to continue to follow. Plan: Anticipated discharge home via POV when medically ready. SW to follow for potential IV abx recommendations based off of ID MD consult post VATS procedure. SW to follow up with pt regarding CD Assessment when appropriate. Pt denies any other needs at this time. SW to continue to follow. LASHAUN Jamison
--- NOTE | 2016-10-12 13:43 | PCM.HPANE ---
Patient Data Surgeon Admitting Provider:Milly Aburto DO Attending Provider:Milly Aburto DO Primary Care Physician:Nopcp Other Provider: Reason for Visit Rll Pneumonia Pleural Effusion Ivda Sirs Ht/WT & BMI Height (Feet): 5 Height (Inches): 7.00 Weight (Kilograms): 80.600 Body Mass Index 26.92 Allergies Coded Allergies: Sulfa (Sulfonamide Antibiotics) (Verified Allergy, Unknown, 02/24/15) Past Anesthesia History Anesthesia History: Denies:: Abnormal Airway, Anesthesia Reactions, Difficult Intubation, Fam Anesthesia Reaction, Fam Malignant Hypertherm, Malignant Hyperthermia Diabetes History Hx Diabetes?: No MRSA MRSA: No Medications Hypertension Medication: No Home Meds Incl Beta Roz: No Active Scripts Tramadol 50 Mg [id number] Mg PO Q6H PRN For Pain #30 TABLET Ref 0 Prov:Dave Ray MD 04/21/15 Discontinued Scripts Naproxen (Naprosyn)500 Mg [id number] Mg PO BID PRN For Pain #60 TABLET Ref 0 Prov:Dave Ray MD 04/21/15 Amoxicillin 500 Mg [id number] Mg PO TID #60 TABLET Ref 0 Prov:Dave Ray MD 04/21/15 History History of ENT Problems?: No HEENT History: Denies:: Abnormal Airway Cataracts Difficult Intubation Dysphagia Glaucoma Hearing Problem Sinus Problem TMJ Denture Type: None Teeth Condition: Within Normal Limits Hx of Heart Problems?: No Cardiovascular History: Denies:: AICD Abdominal Aortic Aneurism Atrial Fibrillation Cardiac Surgery Chest Pain Congestive Heart Failure Coronary Artery Disease Edema Heart Murmur Hypertension Irregular Heartbeat Pacemaker Peripheral Vascular Rheumatic Fever Thrombophlebitis Valvular Heart Disease Other Cardiac History: ANNE during case to evaluate for endocarditis Hx of Respiratory Problem?: No Respiratory History: Positive for:: Pneumonia (currently, pleural effusion, ? empyema) Denies:: Tuberculosis Hx Neurologic Problems?: Yes Neurological History: Positive for:: Dizziness ("when getting up too fast") Hx of GI Problems?: No Hx of Problems?: No Female Hx: Denies:: Currently Endometriosis Pelvic Inflammatory Problems with Breasts? Hx Musculoskeletal Problems?: No Hx of Psycho/Social Problems?: Yes Psycho Social History: Positive for:: Anxiety Hx Depression Suicide Attempt (a year ago, not this time) Denies:: Bipolar Disorder Hx Surgeries?: Yes (incision and drainage of abscesses 2) Other History: Positive for:: Hospitalization (headaches) Thyroid Disease (hypothyroidism) Denies:: Cancer History Blood Transfusions: Positive for:: Accept Blood Products? Denies:: Blood Transfusions Hx Diabetes: No Hx Alcohol Use: Yes (has not drank in several years)Hx Substance Use: Yes (IV heroin, smokes methamphetamines) Smoking Status: Current Every Day Smoker (1/2 PPD 13 years) Have You Smoked inLast 12 mo: YesApprox How Many Cigarettes/day: 10 Stop/Bang S-Snoring: Do You Snore Loudly: No T-Tired: feel tired, fatigued: Yes O-Obsered: Observed not breath: No P-Blood Pressure: treated: No B- Body Mass Index > 35 kg/m2: No N- Neck Large Circumference: No G- Gender Male: No KELIN Total Score: 1 KELIN Risk Assessment: Low Risk, <3 Yes Risk Assessment Category Category 1A: Patient has history of documented sleep apnea, and HAS NOT received any narcotic, sedative or anesthesia administration during this stay. Category 1B: Patient has history of documented sleep apnea, and HAS received any narcotic , sedative or anesthesia administration during this stay Category 2: Patient has SUSPECTED Obstructive Sleep Apnea, and HAS received any narcotic , sedative or anesthesia administration during this stay. Category 3: Patient has SUSPECTED Obstructive Sleep Apnea and HAS NOT received narcotic, sedative or anesthesia administration during this stay. Category 4: Outpatient in Procedural Areas with known sleep apnea or who screen positive for High Risk via the STOP/BANG questionnaire. Exam Exam Vital Signs Vital Signs Date Time Temp Pulse Resp B/P Pulse Ox O2 Delivery O2 Flow Rate FiO2 10/12/16 11:15 36.9 84 18 108/73 96 Room Air 10/12/16 11:02 89 10/12/16 08:45 74 16 94 Room Air 10/12/16 08:41 36.6 69 36 106/70 94 Room Air 10/12/16 04:34 37.5 99 36 118/75 Room Air General Appearance: Alert, Oriented X3, Cooperative, No Acute Distress, Other ( Somnolent, flat affect) HEENT/AIRWAY: MP 2 Lungs: Clear to Auscultation, Normal Air Movement Heart: Exam Unremarkable, Regular Rate/Rhythm, No Murmurs/Rubs/Gallops Meds/Labs/Diagnostics Admission Meds Current Medications Metronidazole HCl 500 mg 500 mg Q12 PO Last administered on 10/12/16 08:36; Start 10/11/16 at 20:30 Sodium Chloride (Normal Saline) 1,000 ml @ 100 mls/hr Q10H IV Last administered on 10/11/16 18:48; Start 10/11/16 at 18:20 Labs Test 10/09/16 05:45 10/09/16 21:26 10/09/16 21:55 10/09/16 23:44 Urine Legionella pneumophilia Ag Negative (Negative) Prothrombin Time 10.2sec (8.1-12.5) Prothromb Time International Ratio 0.95ratio Activated Partial Thromboplast Time 33.3sec (22.8-33.0) D-Dimer 2.26mg/L FEU (<0.50) Osmolality 266 (275-300) Pro-B-Type Natriuretic Peptide 245.4pg/mL (0-130) Thyroid Stimulating Hormone (TSH) 11.340uIU/mL (0.450-4.500) Lactic Acid Level 1.5mmol/L (0.4-2.0) Urine Color Dark yellow (YELLOW) Urine Appearance Hazy (CLEAR,HAZY) Urine pH 6.0 (5.0-8.0) Urine Specific [place] 1.016 (1.003-1.035) Urine Protein Tracemg/dL (NEG,TRACE) Urine Glucose (UA) Negativemg/dL (NEGATIVE) Urine Ketones Negativemg/dL (NEGATIVE) Urine Occult Blood Large (NEGATIVE) Urine Nitrite Positive (NEGATIVE) Urine Bilirubin Negative (NEGATIVE) Urine Urobilinogen Normalmg/dL (NORMAL) Urine Leukocyte Esterase Negative (NEGATIVE) Urine RBC 0-2/hpf (0-2) Urine WBC 6-10/hpf (0-5) Urine Epithelial Cells Many/hpf (NONE-MOD) Urine Crystals None seen (NONE SEEN) Urine Bacteria Many/hpf (NONE-FEW) Urine Hyaline Casts None/lpf (NONE) Urine Granular Casts None seen (NONE SEEN) Urine Waxy Casts None seen (NONE SEEN) Urine Red Blood Cell Casts None seen (NONE SEEN) Urine White Blood Cell Casts None seen (NONE SEEN) Urine Mucus None seen (None Seen) Urine Trichomonas None seen (NONE SEEN) Urine Yeast None (NONE SEEN) Urinalysis Comment None Urine Culture Reflexed Indicated Test 10/10/16 01:04 10/10/16 01:42 10/10/16 08:15 10/10/16 11:50 Urine Osmolality 265mOs/kH2O (250-1200) Urine Random Sodium 10mEq/L Urine Opiates Screen Positive Urine Methadone Screen Negative Urine Barbiturates Screen Negative Urine Amphetamines Screen Positive Urine Benzodiazepines Screen Negative Urine Cocaine Metabolite Screen Negative Urine Cannabinoids Screen Negative Hepatitis A IgM Antibody Negative (Negative) Hepatitis B Surface Antigen Negative (Negative) Hepatitis B Core IgM Antibody Negative (Negative) Hepatitis C Antibody >11.0s/co ratio Hepatitis C Antibody Comment Comment (.) HIV (1&2) Ag and Ab, 4th Generation Non reactive (Non Reactive) Test 10/11/16 00:30 10/11/16 02:55 10/11/16 05:55 10/11/16 08:30 Vancomycin Level Trough 9.9mcg/mL Total Bilirubin 1.1mg/dL (0.0-1.2) Direct Bilirubin 0.7mg/dL (0.0-0.3) Aspartate Amino Transf (AST/SGOT) 60U/L (0-50) Alanine Aminotransferase (ALT/SGPT) 48U/L (0-32) Alkaline Phosphatase 221U/L (25-150) Total Protein 6.2g/dL (6.4-8.4) Albumin 2.3g/dL (3.4-5.0) White Blood Count 4.7th/mm3 (3.8-10.1) Red Blood Count 3.89mil/mm3 (3.90-5.20) Hemoglobin 11.6g/dL (12.0-15.6) Hematocrit 33.3% (35.0-46.0) Mean Corpuscular Volume 85.6fL (81-100) Mean Corpuscular Hemoglobin 29.8pg (27.0-35.0) Mean Corpuscular Hemoglobin Concent 34.8% (32.0-37.0) Red Cell Distribution Width 13.1% (12.3-15.4) Platelet Count 113bil/L (150-400) Neutrophils (%) (Auto) 77.1% (40-74) Lymphocytes (%) (Auto) 9.4% (14-46) Monocytes (%) (Auto) 12.2% (4-12) Eosinophils (%) (Auto) 0.9% (0-5) Basophils (%) (Auto) 0.2% (0-3) Erythrocyte Sedimentation Rate 60mm/hr (0-32) Magnesium Level 2.0mg/dL (1.6-2.6) Total Creatine Kinase 30U/L (21-215) Free Thyroxine 0.33ng/dL (0.82-1.77) Human Chorionic Gonadotropin, Qual Negative (Negative) Body Fluid Source Pleural fluid Body Fluid Color Straw (Clear) Body Fluid Appearance Turbid Body Fluid pH 7.1 (Not Estab.) Body Fluid WBC /mm3 Body Fluid RBC /mm3 Body Fluid Polynuclear WBCs 87% Body Fluid Lymphocytes 7% Body Fluid Monocytes 0% Body Fluid Eosinophils 6% Body Fluid Basophils 0% Body Fluid Lactate Dehydrogenase 54624U/L Body Fluid Comment Pleural Fluid Total Protein 4.8g/dL Pleural Fluid Glucose < 2mg/dL Test 10/11/16 14:20 10/12/16 05:25 Hepatitis A Antibody Total Positive (Negative) Hepatitis B Surface Antibody Reactive (.) Hepatitis B Core Total Antibody Negative (Negative) Sodium Level 134mEq/L (134-144) Potassium Level 3.3mEq/L (3.5-5.2) Chloride Level 99mEq/L (97-108) Carbon Dioxide Level 25mmol/L (18-29) Blood Urea Nitrogen 8mg/dL (6-20) Creatinine 0.46mg/dL (0.57-1.00) Estimat Glomerular Filtration Rate 227mL/min (>59) Glucose Level 93mg/dL (60-99) Calcium Level 7.8mg/dL (8.5-10.1) Procalcitonin 4.61ng/mL (0.00-0.08) Plan Impression Patient chart reviewed, patient interviewed and anesthestic plan with risks, benefits, and alternatives discussed, and informed consent obtained. NPO per Anesth. Guidelines: Yes ASA Physical Status: ASA3 Severe Disease Anesthetic Support Modalities: Fiberoptic Scope, Arterial Line Anesthetic Plan: GA Bene/Risks/Altern/Consents: Yes HP Complete Prior to Induction: Yes (PRICE) Salas Eddy MD October 12, 2016 11:53
[2016-10-12] MEDS: cefTRIAXone Inj 2,000 MG in Dextrose 5% Minibag Plus 50 ML IV SCH ×2 (14:12)
[2016-10-12] MEDS ORDERED: 0.9% Sodium Chloride 500 ML IV ONE (14:12)
[2016-10-12] MEDS ORDERED: Bupivacaine-MPF 0.25%/EPI 30 mL Inj INFILTRATE ONE (15:02)
--- NOTE | 2016-10-12 15:02 | NUR ---
Antibiotics, OR, Multidisciplinary Communication 929 - Discussed her care with the Dr. Tellez and the multidisciplinary care team. Informed them that her potassium this morning was 3.3. He said he would look into it. She had been asking if she could have a shower after her procedure. Dr. Tellez said that due to her having a chest tube post-op and needing telemetry monitoring she would not be able to take a shower. [id number] - Kalli Oscar RN took over her care temporarily so this nurse could attend mandatory education. Upon returning she said that she had contacted Pharmacist Amadou Davis regarding the patient's missing 0830 dose of IV Ceftriaxone. Was told that the plan was for the patient to go the the ED about 1330 to get a VATs procedure and ANNE completed. 1311 - Sierra from the OR called and was given a telephone report. She said they could give the Ceftriaxone once it arrived as it hadn't been given yet. Called Pharmacy and asked a second time for it to be sent. They said they could send it directly to the OR. 1321 - She was taken to the OR along with her hard chart and IVs of Normal Saline and Potassium still running. About 1410 - OR called and the Anesthesiologist was wondering why the 0830 dose of Ceftriaxone hadn't been given yet. Told them that it had been requested a couple of time from pharmacy, but hadn't arrived prior to her leaving for the OR. Addendum: 10/12/16 at 1950 by SONNY PALOMINO RN 1817 - Took report from OR nurse via phone. Was told she had two chest tubes and that the Potassium rider had been stopped during her procedures and needed to be finished. 1844 - [facility]24 and was settled into her room. The OR nurse said she just gave her a dose of Dilaudid for pain. Vitals were taken, changed her chest tube dressing as they were saturated, and placed on room air as she didn't want to keep the O2 on. Notified the shift supervisor rn nurse that an assessment hadn't been completed on her yet. Care continues.
[2016-10-12] MEDS ORDERED: Lactated Ringer's 1,000 ML IV SCH (16:31)
[2016-10-12] MEDS ORDERED: Lactated Ringer's 500 ML IV PRN (16:31)
[2016-10-12] MEDS ORDERED: Phenylephrine 10,000 mCg/mL Inj IVPUSH PRN (16:35)
[2016-10-12] MEDS ORDERED: Ondansetron 2 mg/mL 2 mL Inj IVPUSH PRN (16:35)
[2016-10-12] MEDS ORDERED: Atropine 0.4 mg/mL Inj IVPUSH PRN (16:35)
[2016-10-12] MEDS ORDERED: EPHEDrine Sulfate 50 mg/mL Inj IVPUSH PRN (16:35)
[2016-10-12] MEDS ORDERED: Labetalol 5 mg/mL 4 mL Inj IV PRN (16:35)
[2016-10-12] MEDS ORDERED: MetoCLOpramide 5 mg/mL 2 mL Inj IVPUSH PRN (16:35)
--- NOTE | 2016-10-12 17:20 | PCM.ANEP1 ---
Post Anesthesia Phase 1 PACU Phase 1 Assessment Date of Service: October 12, 2016 Vital Signs Vital Signs Date Time Temp Pulse Resp B/P Pulse Ox O2 Delivery O2 Flow Rate FiO2 10/12/16 11:15 36.9 84 18 108/73 96 Room Air 10/12/16 11:02 89 Level of Alertness: Awake, talking LACEY's with Equal Strength: Yes Pain: No Nausea or Vomiting: No Cardiovascular Function and Hy: Yes Oxygen Delivery: Simple Mask Lungs: Clear to Auscultation, Normal Air Movement Summary VSS, see FINISHED METAL REPAIRER notes for values, Arterial line out in PACU Complications: No Follow up Care: No Salas Eddy MD October 12, 2016 17:20
[2016-10-12] MEDS: fentaNYL-PF 50 mCg/mL 2 mL Inj IVPUSH PRN ×3 (17:30→18:08)
[2016-10-12] MEDS: HYDROmorphone 1 mg/mL Inj IVPUSH PRN ×3 (17:35→18:08)
--- NOTE | 2016-10-12 17:55 | DRSVH ---
PROCEDURE: X-RAY CHEST ONE VIEW, PORTABLE ([id number]) INDICATIONS: 31 year-old female with chest tube placement. TECHNIQUE: One view of the chest was acquired. COMPARISON: [facility], CR, XR CHEST 1VW, 10/11/2016, 8:39. [facility], CR, XR CHEST 2VW, 10/09/2016, 21:31. FINDINGS: Surgical changes and devices: New right apical and basal pleural drains are now present and in expect ed positions. Lungs and pleura: Small right pleural effusion has resolved; no pneumothorax. Lungs are clear, excep t for patchy retrocardiac and lingular opacity. Mediastinum: Mediastinal contours appear normal. Heart size is normal. Bones and chest wall: No suspicious bony lesions. Overlying soft tissues appear unremarkable. IMPRESSION: 1. Interval resolution of basal right pleural effusion after placement of right apical and basal ches t tubes. No pneumothorax. 2. Patchy retrocardiac and lingular atelectasis versus early pneumonia. Dictated by: Madhav Amato M.D. on 10/12/2016 at 17:46 Approved by: Madhav Amato M.D. on 10/12/2016 at 17:48
--- NOTE | 2016-10-12 18:17 | DRSVH ---
[facility] [address] [place] [address] Echocardiogram Report Name: PAO GARCIA LStudy Date: 0 10/12/2016 Hospital Exam Location: [facility] Gender: Female : 1985 Age: 31 yrs BP: 108/73 mmHg Reason For Study: Endocarditis Performed By: Ilene Quintero Referring Physician: KARTIK ROCK Interpretation Summary The left ventricle is normal in size, wall thickness, and systolic function without any focal wall motion abnormalities. The ejection fraction is estimated to be 60-65%. No obvious vegetation seen. No significant valvular pathology seen. Procedure: Informed consent for Transesophageal Echocardiogram, and use of a contrast agent as needed, was obtained prior to the procedure. The transesophageal probe was passed without difficulty. Comparison is made with the echocardiogram of 10/11/16. Sedation was managed by anesthesiologist; see anesthesiology notes for details. The usual views were obtained; basal, mid- esophageal, transgastric and aortic views. The patient's vital signs, including blood pressure, heart rate, pulse oximetry and cardiac rhythm were monitored throughout the procedure and remained stable. The patient tolerated the procedure well without evidence of orophangeal or esophageal trauma. A 2D transesophageal echocardiogram with spectral and color flow Doppler was performed. The patient was in normal sinus rhythm during the exam. There were no complications. Left Ventricle: The left ventricle is normal in size, wall thickness, and systolic function without any focal wall motion abnormalities. There is no thrombus. The ejection fraction is estimated to be 60-65%. Right Ventricle: The right ventricle is normal in size, thickness and function. Atria: Both atria are normal in size. No left atrial mass or thrombus visualized. No thrombus is detected in the left atrial appendage. The interatrial septum is intact with no evidence for an atrial septal defect. There is no Doppler evidence for an interatrial shunt. Mitral Valve: The mitral valve is normal in structure and function. There is no vegetation seen on the mitral valve. There is trace mitral regurgitation. Aortic Valve: The aortic valve is trileaflet. The aortic valve opens well. There is no aortic valvular vegetation. No aortic regurgitation is present. Tricuspid Valve: The tricuspid valve is normal in structure and function. There is no tricuspid valve vegetation. There is trace tricuspid regurgitation. Pulmonic Valve: The pulmonic valve is normal in structure and function. There is no vegetation on the pulmonic valve. There is trace pulmonic regurgitation. Reading Physician:LYNETTE
--- NOTE | 2016-10-12 19:12 | PCM.PNMED ---
Subjective Date of Service October 12, 2016 Subjective Ms. Melendez is a 31 y/o woman with history of IVDU and methamphetamine abuse history who is here with pneumonia and parapneumonic effusions. She is positive for hepatitis C, negative for HIV, US Echo showed no concern for vegetations. Today, she reports that she has some right sided back pain. She does not have chest pain. Her dyspnea has improved. She reports chills yesterday and states that she was likely withdrawing yesterday. She also reports that she has plans for outpatient rehabilitation and knows of the resources available to her. Exam Vital Signs Vital Sign - Last Date Time Temp Pulse Resp B/P Pulse Ox O2 Delivery O2 Flow Rate FiO2 10/12/16 18:10 85 27 109/69 97 Nasal Cannula 3 10/12/16 17:45 36.3 Intake and Output 10/11/16 10/11/16 10/12/16 Cumulative From/Thru 15:00 23:00 07:00 10/09/16 19:14 - 10/12/16 06:30 Intake Total 300 ml 575 ml 1291 ml 7727 ml Output Total 975 ml 500 ml 1100 ml 4575 ml Balance -675 ml 75 ml 191 ml 3152 ml Intake Oral 300 ml 575 ml 400 ml 2835 ml IV Total 891 ml 4892 ml Output Urine Total 975 ml 500 ml 1100 ml 4575 ml # Bowel Movements 1 2 4 Exam Skin: multiple needle knox in lines over veins, red raised slightly tender erythematous lesion, 3-4 cm round, anterior mcrae right, ink knox to border, left arm and hand also have trace erythema and edema CV: RRR, no s3/s4 Resp: bronchial breath sounds and decreased breath sounds right lung base, no rhonchi or wheezing GI: soft non acute, not tender Neuro: no gross motor or sensory deficits psych: neg for anxiety HEENT: NCAT Eyes: PERRLA, Scleral Anicteric Mouth: Mouth Normal, Mucous Membranes dry Neck: Supple, no Thyromegaly; Lab and Diagnostics Result Diagram: 10/11/16 0555 10/12/16 0525 Assessment & Plan Sarah Melendez is a 31-year-old female who presented to [facility] emergency department complaining of fever 4 days. Sepsis, present on admission, resolved -HR >100, RR 30 -UTI and multifocal pneumonia with effusion, red blotched spot on anterior right mcrae -Hep C positive, HIV neg -Fungitell pending -US echo showed no concern for vegetations. ANNE performed today prior to VATS procedure. - Blood cx showed Group A Strep pyogenes -ID is consulted and appreciate their recommendations Multifocal pneumonia, present on admission, active -PCR respiratory panel negative -Cultures pending - CXR neg for pneumothorax -ID discontinued, Zosyn, Levaquin. They have her on Flagyl and ceftriaxone -Darrian puss 20 cc was drained per radiology. Pulmonology is consulted, they have seen the patient. Moved patient up to second floor.. -VATS today -Elevated LDH, nonexistent glucose from the pleural fluid Right pleural effusion, present on admission, active -Diagnostic and therapeutic thoracentesis performed -Darrian puss 20 cc was drained per radiology. Pulmonology is consulted, will see the patient. -Follow pleural fluid cx: Elevated LDH, nonexistent glucose from the pleural fluid -VATS today UTI, present on admission, active -again asymptomatic -above antibiotics shoudl cover -cullture is gram negative rods, E.coli that is pansensitive -Antibiotics as above Red area anterior R mcrae, present on admission, active -Ink applied to borders to follow Hyponatremia, present on admission, resolved -- Most likely due to hypovolemia. -- On normal saline at 100 mL/h as she had been tachycardic and dehydrated Hypothyroidism, present on admission, active -Patient has not been on her thyroid medication for several months -TSH elevated and free T4 low -Levothyroxine 25 mg once daily in the morning started 10/12/16 -Will need monitored as an outpatient Elevated liver function tests present on admission, active -Hepatitis panel sent: Hep C positive -- She will need to be followed up as outpatient Pain management, -Dilaudid 2-4 PO every 4 hour as needed IV heroin and methamphetamine use, present on admission, active -Social workers consult requested -Continue to discuss treatment for substance abuse Patient is admitted under inpatient status with expected length of stay greater than 2 midnights due to severity of presenting symptoms, risk of adverse event, and complexity of treatment plan. She will likely need a lengthy stay due to above complications, plan for extended Ale bx in [facility] Mechanical Devices: Intermittant Pneumatic CD Resuscitation Status: CPR: Attempt Resuscitation Attending Statement The patient was seen and examined together with Dr. Bennett on 10/12/2016 and I agree with the history, exam and plan as outlined in the note above. . Jennifer Bennett DO October 12, 2016 18:25 Bry Larsen MD October 13, 2016 07:46
--- NOTE | 2016-10-12 23:49 | OP ---
[address] [address] OPERATIVE REPORT PATIENT: PAO GARCIA : 1985 MR#: [id number] ADMIT: 10/10/2016 JOB ID: [id number] DATE OF SURGERY: 10/12/2016 SURGEON: Nestor Bryant MD. MEDICAL CENTER REPRESENTATIVE: Onelia Sheridan MD. ANESTHESIA: General. PREOPERATIVE DIAGNOSIS(ES): Right empyema. POSTOPERATIVE DIAGNOSIS(ES): Right empyema. PRINCIPAL PROCEDURE: Right video-assisted thorascopic surgery with drainage of right empyema and decortication of the lung. INDICATION FOR PROCEDURE: The patient is a 31-year-old female with right-sided pleural effusion and on thoracentesis yielded purulent fluid. A right-sided VATS procedure was requested. PRINCIPAL FINDING: Initial removal of 1150 cc of cloudy fluid. Lots of yellowish fibrinous exudate was on the lung surface and in the pleural space and on the pleura. Successful drainage of empyema and decortication. Two chest tubes were left at the end of the procedure. PROCEDURE COURSE: The patient was brought to the operating table and was provided with general anesthesia. The patient was intubated with a double-lumen tube. She was provided with an A-line, Son catheter and SCDs. The patient had received her usual IV antibiotics. A time-out was performed. Patient was placed in a left lateral decubitus position exposing her right chest. A time-out was performed. The right chest was prepped and draped in the usual sterile fashion. Next, along the right mid axillary line just two fingerbreadths above the costal margin, an incision was planned. Local anesthetic was injected and the skin was incised using the scalpel. Dissection into the subcu was carried out using cautery. The right pleural space was entered without difficulty. Using the Yankauer suction, we were able to suck out approximately 150 cc of cloudy fluid. Next, the camera was then inserted and we saw a large amount of yellowish, spongy-looking exudate on the lung surface and also on the pleura. Using irrigation and suction, most of these exudates were removed. Also, using graspers we were able to decorticate all the surfaces of the lung. The diaphragmatic surface was also cleared of this empyema and debris. Copious irrigation was carried out. We used a combination of freer's and graspers and suction and irrigation to try to clear all the debris off of the lung surface and the pleural space. Once we were satisfied with the amount of decortication, a 30-Greek chest tube was then placed into the right mid axillary line incision and it was aimed towards the apex. Through the right posterior chest incision, a 28-Greek angled chest tube was placed and it was aimed anteriorly towards the diaphragm. Both chest tubes were secured in place using nylon sutures and both were connected to Pleur-evac suction. The right anterior chest incision was closed in layers using absorbable sutures. The patient tolerated the procedure well. The assistance from a surgical PA was critical in driving the camera and in helping to complete the case. By the end of the procedure, needle counts and sponge counts were correct. A sterile dressing was then placed over each wound. The patient was then extubated and taken back to the intensive care unit in stable, satisfactory condition.
[2016-10-13] VITALS (12 sets, daily range): BP systolic 106–135; BP diastolic 67–90; PULSE 83–103; RESP 18–32; O2SAT 95–98
[2016-10-13] MEDS: 0.9% Sodium Chloride 1,000 ML IV SCH ×3 (00:15→22:05)
[2016-10-13] MEDS: Heparin 5,000 Unit/mL Inj SUBQ SCH ×3 (01:11→16:39)
[2016-10-13] MEDS: HYDROmorphone 0.5 mg/0.5 mL iSecure Syringe IVPUSH PRN (01:11)
[2016-10-13] MEDS: HYDROmorphone 1 mg/mL Inj IVPUSH PRN ×4 (03:24→09:26)
[2016-10-13 04:13] LABS: Mean Corpuscular Hemoglobin 28.8 pg (27.0-35.0); Mean Corpuscular Volume 86.3 fL (81-100); Platelet Count 207 bil/L (150-400)
[2016-10-13 04:33] LABS: NEUTROPHILS % (AUTO) 67 % (40-74)
[2016-10-13 04:34] LABS: BASOPHILS % (AUTO) 0 % (0-3); EOSINOPHILS % (AUTO) 0 % (0-5); MONOCYTES % (AUTO) 8 % (4-12)
--- NOTE | 2016-10-13 05:46 | NUR ---
Telemetry/Pain 03/08 pain , constant agony, paged Hospitalist , increased frequency of dosing, Q/2 hr. .5-1 Mg Dilaudid IVP. NS@ 100, Room air. A&O x3 using call light appropriately, , Chest Tube Drains x 2 on rt side of chest.
[2016-10-13] MEDS: cefTRIAXone Inj 2,000 MG in Dextrose 5% Minibag Plus 50 ML IV SCH (08:25)
--- NOTE | 2016-10-13 09:29 | PROG NOTE ---
[address] [address] PROGRESS NOTE PATIENT: PAO GARCIA : 1985 MR#: [id number] ADMIT: 10/10/2016 JOB ID: [id number] DATE: 10/13/2016 REASON FOR FOLLOWUP: Group A strep bacteremia, group A strep empyema in an IV drug user. INTERVAL HISTORY: The patient today has considerable right pleural chest pain, not surprisingly, as she underwent a VATS procedure yesterday and still has two chest tubes. She denies having fever or chills. She denies significant shortness of breath, though she obviously has terrible right pleuritic chest pain. No nausea, vomiting, diarrhea, or skin rash. PHYSICAL EXAM: Afebrile woman. Temp 36.6, pulse 95, respiratory rate 20, blood pressure 106/67, saturating well on room air. She is in no acute distress, but does wince whenever she takes a big breath. Eyes without conjunctivitis. Throat without pharyngitis. Lungs with decreased breath sounds at the right base. Two chest tubes protruding from the right chest wall. Abdomen soft, nontender. No skin rash. LABORATORIES: Include white count 8000, 10% bands now, not surprisingly postop. Creatinine 0.56. LFTs normal except alk phos 218. Procalcitonin dropping now down to 2.59. The patient's hep A antibody and hepatitis B surface antibody are positive. She does have hep C, and we are awaiting those viral studies. Cultures on pleural space are negative so far but the Gram stain of the pleural fluid did show GPCs which were undoubtedly the group A strep we are dealing with. IMPRESSION: This is our 31-year-old woman who has group A strep bacteremia with right-sided empyema, now status post decortication yesterday. The patient tolerated the procedure fairly well, though she has lot of postop pain. We also have a ANNE that was done yesterday which I have discussed with the track inspecting supervisor, and it shows no evidence of endocarditis, ruling out that very dangerous but uncommon cause of endocarditis. RECOMMENDATIONS: 1. Will continue with IV ceftriaxone for now. 2. If her blood cultures remain negative, we can go ahead and place a PICC line and switch the patient to IV penicillin. 3. I would continue with the Flagyl for the possibility of uncultured anaerobes present in the pleural fluid, as it is very difficult in empyemas and liver abscesses to ever say those infections are free of anaerobes, even though if they are not cultured. 4. Will continue to closely follow this complex patient with you.
--- NOTE | 2016-10-13 09:32 | DRSVH ---
PROCEDURE: X-RAY CHEST ONE VIEW, PORTABLE ([id number]) INDICATIONS: f/u chest tube TECHNIQUE: One view of the chest was acquired. COMPARISON: [facility], CR, XR CHEST 1VW (PORTABLE), 10/12/2016, 17:15. FINDINGS: Surgical changes and devices: Stable positioning of right pleural drains. Lungs and pleura: No pleural effusions or pneumothorax. Patchy opacity within the midright lung and lung bases not significantly changed. Mediastinum: Mediastinal contours appear normal. Heart size is normal. Bones and chest wall: No suspicious bony lesions. Overlying soft tissues appear unremarkable. IMPRESSION: 1. Stable position right pleural drains. 2. Bilateral patchy air space opacities consistent with atelectasis versus pneumonia. Dictated by: Jam COTO Interpreted: Ambreen Garcia MD on 10/13/2016 at 9:28 Transcribed by: CHARLA on 10/13/2016 at 9:32 Approved by: Ambreen Garcia M.D. on 10/15/2016 at 9:04
--- NOTE | 2016-10-13 10:12 | NUR ---
Social Work Note: Continued Discharge Planning Data& Assessment: Per MD in morning rounds, pt has had chest tubes placed. Per RN, pt is struggling with having her pain managed post chest tube placement. Pt has not been able to ambulate out of bed at this time due to chest tubes and the amount of pain she is in. Pt is not appropriate at this time. SW to continue to follow for medical progression, r/o IV abx needs and follow up with pt when appropriate for CD Assessment. Sw to continue to follow. Plan: Per MD in morning rounds, pt is not close to being medically ready for discharge. SW to continue to follow for medical progression, r/o IV abx needs and follow up with pt when appropriate for CD Assessment. LASHAUN Jamison
--- NOTE | 2016-10-13 11:35 | PCM.PNSURG ---
Subjective Date of Service: October 13, 2016 Date of Service: October 13, 2016 Visit Information: Reason for Visit Rll Pneumonia Pleural Effusion Ivda Sirs Surgery/Surgery Date Post-Op Day # 1 s/p VATS Date of Admission: October 10, 2016 at 00:26 Hospital Day # Subjective: Patient seen on surgical floor. Difficult to obtain subjective input as patient does not want to talk. Nods that she is still in pain. Postop General: No Shortness of Breath (pleuritic chest pain accompanies breathing) Gastrointestinal: Tolerating Oral Feedings, No N/V Pain Management: REVENUE AUDIT CLERK without Basal, Continued Pain Issues (pleuritic right sided pain) Objective Objective Seen at bedside. Lying still in bed with eyes closed, nods only. Vital Sign- Last 8 Hours Date Time Temp Pulse Resp B/P Pulse Ox O2 Delivery O2 Flow Rate FiO2 10/13/16 11:04 83 10/13/16 07:41 36.6 95 20 106/67 96 Room Air 10/13/16 05:35 36.9 88 24 116/74 98 Intake and Output- Last 8 Hour 10/13/16 Cumulative From/Thru 07:00 10/09/16 19:14 - 10/13/16 06:56 Intake Total 875 ml 62624 ml Output Total 450 ml 5745 ml Balance 425 ml 4407 ml Intake Oral 400 ml 3235 ml IV Total 475 ml 6917 ml Output Urine Total 450 ml 5745 ml # Bowel Movements 4 General: Oriented X3, No Acute Distress Lungs: Clear to Auscultation Heart: Normal S1, Normal S2, No Murmurs/Rubs/Gallops (tachy.) Chest: Right sided chest tubes in place to suction. No air leak appreciated. Lower chest tube with 27mL out and upper with 80mL out. SURGICAL WOUND : Wound General Appearence: Wound under dressing Dressing & Drainage Status: Intact, No Purulent Drainage, No Odor Result Diagram: 10/13/1640410/13/16404 Assessment & Plan Impression Gp A strep bacteremia Right side empyema s/p placement of 2 right sided chest tubes, currently to suction and without leak Blood cx ngtd Problems: Plan place pleurovac to water seal at midnite tonite check cxr tomorrow AM; if looks stable then will dc tubes in AM tomorrow Pain Management: REVENUE AUDIT CLERK Resuscitation Status: CPR: Attempt Resuscitation Laron Coburn PA-C October 13, 2016 11:35
[2016-10-13] MEDS: HYDROmorphone PCA 0.2 mg/mL 30 mL Inj - Opioid Tolerant IV PRN ×2 (11:51→20:01)
--- NOTE | 2016-10-13 11:51 | NUR ---
Pain management pt ordered for SEWING MACHINE OPERATOR PLASTIC ZIPPER with basal rate. pt reporting pain "25/10" loading dose given per md order. nurse head pt education given. will continue to monitor for effectiveness.
--- NOTE | 2016-10-13 14:23 | PATH ---
SURGICAL PATHOLOGY Attending Physician:Galo Workman MD CASE STATUS: Signed Out PATIENT NAME: PAO GARCIA PID: [id number] : 1985 DATE COLLECTED:10/11/2016 00:00 SPECIMEN: Right Thoracentesis CLINICAL HISTORY: Right Thoracentesis ICD-10 code not given FINAL DIAGNOSIS: RIGHT THORACENTESIS FLUID: NEGATIVE FOR MALIGNANT CELLS. MESOTHELIAL CELLS AND INFLAMMATORY CELLS ARE PRESENT. ICD10 CODE J90 GROSS DESCRIPTION: Received fresh on 10/12/2016 is approximately 5 cc of cloudy brown fluid. Prepared are one cell block, one ThinPrep and one Cytospin slides.Vo ICD-9 CODES: CPT CODES: 1: 31258, 34006, 44650 Electronically Signed Out Silvano Herbert MD [facility] Pathology [facility] [address], [place] [address] Technical component performed at [facility], [facility] [address], [place], [address]
--- NOTE | 2016-10-13 14:34 | PCM.PNMED ---
Subjective Date of Service October 13, 2016 Subjective PULMONOLOGY PROGRESS NOTE Patient reports that her shortness of breath has resolved this morning. She denies any fever or chills overnight. She has had some increased cough which increases the level of discomfort in her chest. She underwent VATS yesterday afternoon and returned to the floor with 2 chest tubes. Since then, her pain has been more difficult to control. She is most uncomfortable this morning. Exam Vital Signs Vital Sign - Last Date Time Temp Pulse Resp B/P Pulse Ox O2 Delivery O2 Flow Rate FiO2 10/13/16 07:41 36.6 95 20 106/67 96 Room Air 10/12/16 18:25 3 Intake and Output 10/12/16 10/12/16 10/13/16 Cumulative From/Thru 15:00 23:00 07:00 10/09/16 19:14 - 10/13/16 06:56 Intake Total 1150 ml 400 ml 875 ml 39160 ml Output Total 720 ml 450 ml 5745 ml Balance 1150 ml -320 ml 425 ml 4407 ml Intake Oral 0 ml 400 ml 3235 ml IV Total 1150 ml 400 ml 475 ml 6917 ml Output Urine Total 720 ml 450 ml 5745 ml # Bowel Movements 4 Exam General: Alert, Oriented X3, Cooperative, moderate distress/discomfort Head: Normal, atraumatic HEENT: PERRLA, EOMI, sclera anicteric Chest & Lungs: Clear to auscultation & percussion, Diminished breath sounds over the right lower lobe; Two chest tubes in place on the right Cardiovascular: Regular Rate/Rhythm, Normal S1, Normal S2, No Murmurs/Rubs/ Gallops Pulses: Radial (present and equal bilaterally), Dorsalis Pedis (present and equal bilaterally) Abdomen: Tender RUQ, Non-distended, Normoactive bowel tones, Soft Genitourinary: Son Absent Extremities: No cyanosis/clubbing/edema bilat Skin: Erythema improved (Right mcrae, left 4th MCP/proximal phalange), Injection sites noted throughout both upper extremities most notably on the forearms and in between the fingers Neurological: Grossly intact with equal strength in upper and lower extremities , Cranial nerves grossly intact, Normal Speech IVs and Medications Medications Reviewed: Medications were reviewed in detail Lab and Diagnostics Result Diagram: 10/13/1640410/13/16404 Assessment & Plan 1) Right lower lobe pneumonia, acute, present on admission. - Likely represents an empyema as the patient has group A strep bacteremia and thoracentesis was unsuccessful at removing any significant volume of fluid. - Pleural fluid obtained appears exudative by Lights criteria (pleural fluid LDH greater than 2/3 upper limit of normal serum level). Highly suspicious for infectious etiology. - POD#1 from VATS with two chest tubes remaining. Pain control per the primary team but consider use of ESCROW PROCESSOR for the first 48-72 hours after surgery. - Antibiotics per Dr. Love. 2) Strep pyogenes (group A) bacteremia, acute, present on admission. - Without endocarditis. - Dr. Love of infectious disease has been consulted. Please continue antibiotics per his recommendations. 3) Acute encephalopathy, resolved. - Possibly secondary to sepsis or opiate use. - ABG not showing hypercapnia, was hypoxemic on room air. - Minimize sedating medications. - Currently tolerating room air. Continue O2 supplementation as needed with an O2 saturation goal 92-96%. 4) Regions of erythema, improved. - Right mcrae, left MCP joints, left knee. - May represent other foci of infection. The left hand is particularly concerning as she admits to injecting in that area. - Continue to monitor these areas closely. - Could consider aspiration of the left knee if it becomes more swollen or erythematous. - Continue antibiotics per Dr. Love. 5) Polysubstance abuse. - Patient endorsing symptoms of withdrawal - likely heroin withdrawal and possibly methamphetamine. - Continue to use opiate medications as needed for pain control. May need to consider the addition of benzodiazepines, but will defer to the primary team for management. - Continue to encourage cessation of drug use and try to provide her with the resources to for help outside the hospital. Pulmonary service will plan to sign off at this time. Please call with any further questions or concerns. VTE Mechanical Devices: Intermittant Pneumatic CD Resuscitation Status: CPR: Attempt Resuscitation Attending Statement The patient was seen and examined together with Dr. Best on 10/13/2016 and I agree with the history, exam and plan as outlined in the note above. Meme Best DO October 13, 2016 09:55 Shon Carrasco MD Nov 08, 2016 11:12
--- NOTE | 2016-10-13 20:39 | PCM.PNMED ---
Subjective Date of Service October 13, 2016 Subjective Ms. Melendez is a 31 y/o woman with history of IVDU and methamphetamine and heroin abuse history who is here with pneumonia and parapneumonic effusions. She is positive for hepatitis C, negative for HIV, US Echo showed no concern for vegetations. This morning, she states that she continues to have right-sided and right back pain. She does not have fever or chills or feel short of breath. She denies coughing. Exam Vital Signs Vital Sign - Last Date Time Temp Pulse Resp B/P Pulse Ox O2 Delivery O2 Flow Rate FiO2 10/13/16 07:41 36.6 95 20 106/67 96 Room Air 10/12/16 18:25 3 Intake and Output 10/12/16 10/12/16 10/13/16 Cumulative From/Thru 15:00 23:00 07:00 10/09/16 19:14 - 10/13/16 06:56 Intake Total 1150 ml 400 ml 875 ml 00983 ml Output Total 720 ml 450 ml 5745 ml Balance 1150 ml -320 ml 425 ml 4407 ml Intake Oral 0 ml 400 ml 3235 ml IV Total 1150 ml 400 ml 475 ml 6917 ml Output Urine Total 720 ml 450 ml 5745 ml # Bowel Movements 4 Exam Skin: multiple needle knox in lines over veins, red raised slightly tender erythematous lesion, 3-4 cm round, anterior mcrae right significantly improved compared to ink border CV: RRR, normal S1 and S2, no s3/s4, no murmur, rubs, or gallops Resp: Rhonchi at upper right lung field and decreased breath sounds right lung base, no wheezing. [address] on the right suction. GI: soft non acute, not tender Neuro: no gross motor or sensory deficits psych: neg for anxiety HEENT: NCAT Eyes: PERRLA, Scleral Anicteric Mouth: Mouth Normal, Mucous Membranes dry Neck: Supple, no Thyromegaly; IVs and Medications Medications Reviewed: Medications were reviewed in detail Lab and Diagnostics Result Diagram: 10/13/1640410/13/16404 X-Rays, CTs and MRIs PROCEDURE: CT ANGIO CHEST PULMONARY EMBOLISM IMPRESSION: 1. No evidence of central pulmonary embolism. Evaluation of distal subsegmental branches is limited due to motion artifact and airspace consolidation. 2. Moderate to large right pleural effusion and trace left effusion. 3. Bibasilar consolidation most prominent within the right lower lobe most likely represents pneumonia. 4. A few peripheral small nodular opacities demonstrated in the right middle lobe and left lingula are also likely related to pneumonia. Consider short-term followup to demonstrate resolution if clinically indicated. 5. Splenomegaly with suggestion of hepatomegaly. Recommend correlation clinically and if indicated further evaluation may be obtained with ultrasound. Approved by: Ambrocio Hill M.D. on 10/10/2016 at 8:28 PROCEDURE: X-RAY CHEST ONE VIEW, PORTABLE IMPRESSION: 1. Stable position right pleural drains. 2. Bilateral patchy air space opacities consistent with atelectasis versus pneumonia. Dictated by: Jam Garcia RRA Interpreted: Ambreen Garcia MD on 10/13/2016 at 9: 28 Transcribed by: CHARLA on 10/13/2016 at 9:32 Cardiac Echo Impressions Echocardiogram Report Interpretation Summary The left ventricle is normal in size, wall thickness, and systolic function without any focal wall motion abnormalities. The ejection fraction is estimated to be 60-65%. No obvious vegetation seen. No significant valvular pathology seen. Reading Physician:PM Additional Diagnostics CLINICAL HISTORY: Right Thoracentesis ICD-10 code not given FINAL DIAGNOSIS: RIGHT THORACENTESIS FLUID: NEGATIVE FOR MALIGNANT CELLS. MESOTHELIAL CELLS AND INFLAMMATORY CELLS ARE PRESENT. ICD10 CODE J90 GROSS DESCRIPTION: Received fresh on 10/12/2016 is approximately 5 cc of cloudy brown fluid. Prepared are one cell block, one ThinPrep and one Cytospin slides.Vo ICD-9 CODES: CPT CODES: 1: 40821, 03890, 52555 Electronically Signed Out Silvano Herbert MD [facility] [address], [place] [address] Assessment & Plan Sarah Melendez is a 31-year-old female who presented to [facility] emergency department complaining of fever 4 days. Sepsis, present on admission, improving -HR >100, RR 30 -empyema, UTI, and multifocal pneumonia with effusion, red erythematous spot on anterior right mcrae -Hep C positive, HIV neg -Fungal antibodies mildly elevated -TTE and ANNE showed no concern for vegetations. - Blood cx showed Group A Strep pyogenes -ID is consulted and appreciate their recommendations -Continue normal saline at 100 ml/hour Multifocal pneumonia, present on admission, active -PCR respiratory panel negative -Discontinued Zosyn, Levaquin. She is now on Flagyl and ceftriaxone. Discussion of switching ceftriaxone to penicillin if blood cultures remain negative. She will likely need a PICC for retirement antibiotics as an outpatient. -Darrian puss 20 cc was drained per radiology -VATS today -Elevated LDH, nonexistent glucose from the pleural fluid Right pleural effusion and empyema, present on admission, active. Status post VATS procedure. -Diagnostic and therapeutic thoracentesis performed -Darrian puss 20 cc was drained per radiology. -Follow pleural fluid cx: Elevated LDH, nonexistent glucose from the pleural fluid. Pathology was negative for malignancy. - Pulmonology consulted and following. Their time and recommendations are appreciated -VATS performed yesterday and patient now has 2 chest tubes on the right Pain management -Dilaudid SENIOR PARALEGAL IV heroin and methamphetamine use, present on admission, active -Social workers consulted -Continue to discuss treatment for substance abuse -Patient should be connected with outpatient Suboxone clinic after she is transitioned to oral pain medications. She should be given [facility] information. Hyponatremia, present on admission, recurrent -Most likely due to hypovolemia. -On normal saline at 100 mL/h as she had been tachycardic and dehydrated UTI, present on admission, active -again asymptomatic -above antibiotics -cullture is gram negative rods, E.coli that is pansensitive -Antibiotics as above Hypothyroidism, present on admission, active -Patient has not been on her thyroid medication for several months -TSH elevated and free T4 low -Levothyroxine 25 mg once daily in the morning started 10/12/16 -Will need monitored as an outpatient with recheck of TSH/T4 in 4-6 weeks Erythema anterior R leg, present on admission, improving -Ink applied to borders to follow -Antibiotics as above Elevated liver function tests present on admission, active -Hepatitis panel sent: Hep C positive and hepatomegaly seen on CT scan -- She will need to be followed up as outpatient Plan for extended Ale bx in [facility] Pain Evaluation: Adequate Pain Control VTE Mechanical Devices: Intermittant Pneumatic CD Resuscitation Status: CPR: Attempt Resuscitation Attending Statement The patient was seen and examined together with Dr. Bennett on 10/13/2016 and I agree with the history, exam and plan as outlined in the note above. . Jennifer Bennett DO October 13, 2016 08:30 Bry Larsen MD October 14, 2016 07:56
[2016-10-14] VITALS (13 sets, daily range): BP systolic 105–123; BP diastolic 67–80; PULSE 84–96; RESP 16–27; O2SAT 92–97
[2016-10-14] MEDS: Heparin 5,000 Unit/mL Inj SUBQ SCH ×3 (00:56→17:01)
[2016-10-14 03:32] LABS: Mean Corpuscular Hemoglobin 28.7 pg (27.0-35.0); Mean Corpuscular Volume 88.9 fL (81-100); Platelet Count 205 bil/L (150-400)
[2016-10-14 03:51] LABS: BASOPHILS % (AUTO) 0 % (0-3); EOSINOPHILS % (AUTO) 5 % (0-5); MONOCYTES % (AUTO) 10 % (4-12); NEUTROPHILS % (AUTO) 66 % (40-74)
[2016-10-14] MEDS: HYDROmorphone PCA 0.2 mg/mL 30 mL Inj - Opioid Tolerant IV PRN ×3 (04:47→19:46)
--- NOTE | 2016-10-14 06:11 | NUR ---
Pain/Tele/Visitor Pain is managed w TOOL DESIGN DRAFTSPERSON better than in prior shifts, pt is A&Ox 3 using call light appropriately, has had no outbursts of anger over pain medications. Telemetry SR 85-90, on room air, did not change dressings on drainage tubes ,. combined output of drains, 55 Ml. Pt had a visitor who appeared at room disgruntled over restrictions on visitation,. was advised of Hospital policy, was granted visitation with RN present, Visitor who seems to be significant other of was angry to be restricted, Charge Nurse was present when policy regarding safety of patients was explained to visitor. Visitor , did not identify himself but wanted names of all who care for patient, threatened to have legal action take against hospital. He left a note for the patient telling her to get the names of all she encounters and shifts they work and give the names to him. Had to be asked to leave. Visitor left a hairbrush for the patient. took the patient's backpack from the closet. Patient has been compliant with care and polite to caregivers, is grateful for the team efforts and expressed thanks many times.
[2016-10-14] MEDS: cefTRIAXone Inj 2,000 MG in Dextrose 5% Minibag Plus 50 ML IV SCH (08:04)
[2016-10-14] MEDS: Albuterol-Ipratropium 3 mL Inhalation Solution NEB PRN ×2 (08:23→18:26)
--- NOTE | 2016-10-14 08:28 | PCM.PNSURG ---
Subjective Visit Information: Reason for Visit Rll Pneumonia Pleural Effusion Ivda Sirs Surgery/Surgery Date Post-Op Day # Date of Admission: October 10, 2016 at 00:26 Hospital Day # Subjective: breathing is better after VATS, c/o R sided chest pain on GUMMING MACHINE OPERATOR Objective Objective Eyes closed in bed, does open to voice R chest tubes x2 --> no air leak, Ant tube total 140 cc, Post tube smaller amount CXR --> no air leak Vital Sign- Last 8 Hours Date Time Temp Pulse Resp B/P Pulse Ox O2 Delivery O2 Flow Rate FiO2 10/14/16 05:42 18 97 10/14/16 05:30 89 10/14/16 04:01 37.3 93 18 115/77 96 Room Air Intake and Output- Last 8 Hour 10/14/16 Cumulative From/Thru 07:00 10/09/16 19:14 - 10/14/16 05:44 Intake Total 1546 ml 72221 ml Output Total 800 ml 7915 ml Balance 746 ml 7455 ml Intake Oral 368 ml 5203 ml IV Total 1178 ml 05411 ml Output Urine Total 800 ml 7795 ml Chest Tube Drainage Total 120 ml # Bowel Movements 0 4 Result Diagram: 10/14/16 0305 10/14/16 0305 Assessment & Plan Impression POD #2 s/p R VATS for empyema Hep C IVDA Problems: Plan R chest tubes to water seal Repeat CXR in AM Continue IV abx Pain control Possible removal of posterior chest tube today Resuscitation Status: CPR: Attempt Resuscitation Nestor Bryant MD October 14, 2016 08:28
--- NOTE | 2016-10-14 08:54 | DRSVH ---
PROCEDURE: X-RAY CHEST ONE VIEW, PORTABLE ([id number]) INDICATIONS: monitor chest tubes TECHNIQUE: One view of the chest was acquired. COMPARISON: [facility], CR, XR CHEST 1VW (PORTABLE), 10/13/2016, 5:31. FINDINGS: Surgical changes and devices: Stable positioning of right pleural drains. Lungs and pleura: No pleural effusions or pneumothorax. Patchy opacity within the midright lung and lung bases not significantly changed. Mediastinum: Mediastinal contours appear normal. Heart size is normal. Bones and chest wall: No suspicious bony lesions. Overlying soft tissues appear unremarkable. IMPRESSION: 1. Stable position of right pleural drains. 2. Bilateral patchy air space opacities not significant changed. Dictated by: Jam COTO Interpreted: Ambreen Garcia MD on 10/14/2016 at 8:52 Transcribed by: CHARLA on 10/14/2016 at 8:53 Approved by: Ambreen Garcia M.D. on 10/15/2016 at 9:07
[2016-10-14] MEDS: 0.9% Sodium Chloride 1,000 ML IV SCH ×3 (09:54→19:50)
--- NOTE | 2016-10-14 10:43 | PCM.PROC ---
Procedure Note Pre Procedure Diagnosis: Primary diagnosis: Right empyema Other chronic conditions: 1. IV heroin use 2. Methamphetamine smoker 3. History of hypothyroidism 4. Depression and anxiety 5. Migraines 6. Daily cigarette smoker Post Procedure Diagnosis: Same Procedure: Chest tube removal Provider and Toilet Products Molder: Norbert Jo PA-C Procedural Analgesia: None Procedure Details: The patient was positioned in the left side-lying position. Posterior chest tube suture was cut. Chest tube was removed during sustained deep inspiration. The patient did not suck air during the procedure. The remaining suture was secured. An occlusive dressing of 4 x 4, Vaseline gauze, and bacitracin ointment was applied. The remaining chest tube remains on suction. The procedure was well-tolerated. Specimen: None Norbert Jo PA-C October 14, 2016 10:43
--- NOTE | 2016-10-14 10:57 | NUR ---
Social Work: Attempted Chemical Dependency Evaluation D: Pt discussed in am rounds. Pt is not medically stable for discharge at this time and still has [address]; pt remains on IV ABX. BUTTON BUTTONHOLE MARKER met with pt at bedside to attempt CD assessment. Pt was vague with information only responding with short one to two word sentences. Pt states that she has completed treatment in the past but would not elaborate on details stating "What does it matter? I did it." Pt would not confirm or deny whether she wishes to continue to use heroin post discharge or get connected with resources. BUTTON BUTTONHOLE MARKER inquired if pt was interested in Suboxone or Methadone in which pt responded with "not from you guys." Pt declined a bedside assessment from [facility] even after learning that they could assist her in getting to [facility] for Methadone and/or a Suboxone program. Pt declined outpatient CD resources from BUTTON BUTTONHOLE MARKER. Pt states that she will discharge home when ready but would not provide information about who might be able to assist her at discharge. Pt declines further assistance from BUTTON BUTTONHOLE MARKER about discharge planning. A: Pt who is I at baseline. P: Anticipate pt to discharge home when medically stable; BUTTON BUTTONHOLE MARKER to continue to follow and assist with discharge planning as pt's care progresses. Monique Koo MSW
--- NOTE | 2016-10-14 11:00 | PROG NOTE ---
[address] [address] PROGRESS NOTE PATIENT: PAO GARCIA : 1985 MR#: [id number] ADMIT: 10/10/2016 JOB ID: [id number] DATE: 10/14/2016 INFECTIOUS DISEASE FOLLOWUP NOTE: REASON FOR FOLLOWUP: Group A strep, empyema in an IV drug user. INTERVAL HISTORY: The patient reports she is tired. She denies fevers or chills. She states she does have some right pleuritic chest pain, perhaps better than yesterday. She is mildly short of breath. No nausea, vomiting, diarrhea, or skin rash. PHYSICAL EXAMINATION: Reveals an afebrile woman. Temp 37.3, pulse 94, respiratory rate 18, blood pressure 121/78. She is saturating well on room air. Examination of the mental status reveals that she is awake and oriented but quite lethargic. Eyes without conjunctivitis. Oral cavity without change. Lungs: Decreased breath sounds on right side where the chest tubes are present, otherwise negative. Cardiac tones without murmur. Abdomen benign. No skin rash. LABORATORIES: Include a white count of 6600, 1% metamyelocytes. Otherwise, normal diff. Creatinine 0.53. Alk phos 200. Procalcitonin is coming down very steadily, 4.6 to 2.6 to 1.5, so coming down by almost half per day. The patient's hep C viral load and genotype are pending. Blood cultures are negative. Pleural fluid culture negative at this point. IMAGING: Chest x-ray notable for stable position of the right chest tubes and some bilateral patchy airspace infiltrates. IMPRESSION: This is a 31-year-old woman the group A streptococcal bacteremia and right-sided empyema who is status post decortication. She tolerated the procedure well and is currently making progress in terms of her convalescence. This case was discussed in person with Dr. Larsen and his team this morning in great detail. I anticipate the patient will need a week or two of IV antibiotics to be followed by a prolonged course of oral Augmentin plus amoxicillin for definitive treatment of this process. If these things are complicated a bit by her IV drug use and the possibility that she will attempt to leave the hospital prematurely, at this point I would proceed with either ceftriaxone using a peripheral line or place a midline or peripherally inserted central catheter line and switch to IV penicillin. Either of these beta-lactam agents will probably be needed for 7-14 additional days before transition to Augmentin. Should the patient want or need to leave earlier than that, we could consider a single dose of dalbavancin to be followed by Augmentin. RECOMMENDATIONS: 1. Will continue with IV ceftriaxone for now. 2. If needed, go ahead and place a PICC or midline with the plan to remove it, of course, at that time of her discharge. 3. If we do have a PICC or midline, we can use IV penicillin plus oral Flagyl. 4. Will continue to follow this complex patient with you.
--- NOTE | 2016-10-14 14:13 | NUR ---
Agitation over discussion Pt was approached by PRESTIDIGITATOR and appeared very agitated when asked questions regarding her plans for after discharge, treatment, and possible suicide tendencies. After PRESTIDIGITATOR left, pt told me that it made her uncomfortable to be asked such intimate questions so quickly and casually. She also stated she felt like the person was speaking too loudly and that she felt embarrassed that people out in the hallway could potentially hear.
--- NOTE | 2016-10-14 15:18 | PCM.PNMED ---
Subjective Date of Service October 14, 2016 Subjective Ms. Melendez is a 31 y/o woman with history of IVDU and methamphetamine and heroin abuse history who is here with pneumonia and parapneumonic effusions. She is positive for hepatitis C, negative for HIV, US Echo showed no concern for vegetations. Today, she continues to have right sided chest pain. She has a cough. She does not have dyspnea, nausea, vomiting, abdominal pain, or dysuria. Discussed with patient today about starting her on Suboxone while in the hospital to help with her recovery. She declines starting Suboxone and any help with her detox process. This afternoon, nursing reported that the patient was out of it most of today and arousable to touch with an increased respiratory rate. Upon reassessment, patient was awake and alert. She answered questions appropriately. She does have pain, but it is well controlled except for when she moves. She does not feel like she is having trouble breathing or is wheezing. She was tired today because she was awake most of the night when her IV needed to be changed. Her respiratory rate was 21 and oxygen saturation 96% on room air with heart rate of 90 bpm. Exam Vital Signs Vital Sign - Last Date Time Temp Pulse Resp B/P Pulse Ox O2 Delivery O2 Flow Rate FiO2 10/14/16 12:21 37.5 93 22 121/80 94 Room Air 10/12/16 18:25 3 Intake and Output 10/13/16 10/13/16 10/14/16 Cumulative From/Thru 15:00 23:00 07:00 10/09/16 19:14 - 10/14/16 05:44 Intake Total 3672 ml 1546 ml 95351 ml Output Total 1370 ml 800 ml 7915 ml Balance 2302 ml 746 ml 7455 ml Intake Oral 1600 ml 368 ml 5203 ml IV Total 2072 ml 1178 ml 65664 ml Output Urine Total 1250 ml 800 ml 7795 ml Chest Tube Drainage Total 120 ml 120 ml # Bowel Movements 0 4 Exam Skin: multiple needle knox in lines over veins, red raised slightly tender erythematous lesion, 3-4 cm round, anterior mcrae right significantly improved compared to ink border, 1-2 cm round erythematous lesion on left right finger. CV: RRR, normal S1 and S2, no s3/s4, no murmur, rubs, or gallops Resp: Rhonchi at upper right lung todd and decreased breath sounds right lung base, no wheezing. [address] on the right, water sealed. GI: soft non distended, not tender Neuro: no gross motor or sensory deficits psych: appropriate mood and affect HEENT: NCAT Eyes: PERRLA, Scleral Anicteric Mouth: Mucous Membranes moist Neck: Supple, no Thyromegaly; IVs and Medications Medications Reviewed: Medications were reviewed in detail Lab and Diagnostics Result Diagram: 10/14/16 0305 10/14/16 0305 X-Rays, CTs and MRIs PROCEDURE: CT ANGIO CHEST PULMONARY EMBOLISM IMPRESSION: 1. No evidence of central pulmonary embolism. Evaluation of distal subsegmental branches is limited due to motion artifact and airspace consolidation. 2. Moderate to large right pleural effusion and trace left effusion. 3. Bibasilar consolidation most prominent within the right lower lobe most likely represents pneumonia. 4. A few peripheral small nodular opacities demonstrated in the right middle lobe and left lingula are also likely related to pneumonia. Consider short-term followup to demonstrate resolution if clinically indicated. 5. Splenomegaly with suggestion of hepatomegaly. Recommend correlation clinically and if indicated further evaluation may be obtained with ultrasound. Approved by: Ambrocio Hill M.D. on 10/10/2016 at 8:28 PROCEDURE: X-RAY CHEST ONE VIEW, PORTABLE IMPRESSION: 1. Stable position right pleural drains. 2. Bilateral patchy air space opacities consistent with atelectasis versus pneumonia. Dictated by: Jam Garcia RR Interpreted: Ambreen Garcia MD on 10/13/2016 at 9: 28 Transcribed by: CHARLA on 10/13/2016 at 9:32 Cardiac Echo Impressions Echocardiogram Report Interpretation Summary The left ventricle is normal in size, wall thickness, and systolic function without any focal wall motion abnormalities. The ejection fraction is estimated to be 60-65%. No obvious vegetation seen. No significant valvular pathology seen. Reading Physician:PM Additional Diagnostics CLINICAL HISTORY: Right Thoracentesis ICD-10 code not given FINAL DIAGNOSIS: RIGHT THORACENTESIS FLUID: NEGATIVE FOR MALIGNANT CELLS. MESOTHELIAL CELLS AND INFLAMMATORY CELLS ARE PRESENT. ICD10 CODE J90 GROSS DESCRIPTION: Received fresh on 10/12/2016 is approximately 5 cc of cloudy brown fluid. Prepared are one cell block, one ThinPrep and one Cytospin slides.Vo ICD-9 CODES: CPT CODES: 1: 98794, 51600, 77851 Electronically Signed Out Silvano Herbert MD [facility] [address], [place] [address] Assessment & Plan Sarah Melendez is a 31-year-old female who presented to [facility] emergency department complaining of fever 4 days. Right pleural effusion and empyema, present on admission, active. Status post VATS procedure. -Diagnostic and therapeutic thoracentesis performed -Darrian puss 20 cc was drained per radiology. -Follow pleural fluid cx: Elevated LDH, nonexistent glucose from the pleural fluid. Pathology was negative for malignancy. - Pulmonology consulted and following. Their time and recommendations are appreciated -VATS performed 10/12/16 and patient now has 2 chest tubes on the right Pain management -Dilaudid SKI INSTRUCTOR -Patient declines Suboxone to help with her detoxification and withdrawal from opioids prior to discharge and to help with coordination with an outpatient Suboxone clinic. -Plan to decrease opioids once both chest tubes are removed. When chest tubes are removed, plan to calculate morphine equivalents of Dilaudid used at that time and switch to PO short-acting narcotics with a 10% decrease per day taper. She should be discharged with a 10 day taper. -Will discuss with social work about chemical dependency counseling IV heroin and methamphetamine use, present on admission, active -Social workers consulted -Continue to discuss treatment options for substance abuse -Pt declined Suboxone clinic. She should be given [place] [facility] information. -Pt should not be discharged with a PICC line for long-term antibiotics Sepsis, present on admission, improving -HR >100, RR 30 -empyema, UTI, and multifocal pneumonia with effusion, red erythematous spot on anterior right mcrae -Hep C positive, HIV neg -Fungal antibodies mildly elevated -TTE and ANNE showed no concern for vegetations. - Blood cx showed Group A Strep pyogenes -ID is consulted and appreciate their recommendations -Continue normal saline at 100 ml/hour -Continue IV ceftriaxone and consider transitioning to a midline or PICC placement for IV penicillin. Per infectious disease, either ceftriaxone and penicillin will be needed for 7-14 additional days before transition to PO Augmentin. Should the patient want or need to leave earlier than that, we could consider a single dose of dalbavancin to be followed by Augmentin. Multifocal pneumonia, present on admission, improving -PCR respiratory panel negative -Discontinued Zosyn, Levaquin. She is now on Flagyl and ceftriaxone. Discussion of switching ceftriaxone to penicillin if blood cultures remain negative. -Darrian puss 20 cc was drained per radiology -VATS on 10/12/16 -Elevated LDH, nonexistent glucose from the pleural fluid Hyponatremia, present on admission, resolved -Most likely due to hypovolemia. -On normal saline at 100 mL/h as she had been tachycardic and hypovolemic Urinary tract infection, present on admission, active -asymptomatic -above antibiotics -cullture is gram negative rods, E.coli that is pansensitive -Antibiotics as above Hypothyroidism, present on admission, active -Patient has not been on her thyroid medication for several months -TSH elevated and free T4 low -Levothyroxine 25 mg once daily in the morning started 10/12/16 -Will need monitored as an outpatient with recheck of TSH/T4 in 4-6 weeks Possible right anterior leg and left hand cellulitis, present on admission, improving -Ink applied to borders to follow -Antibiotics as above Elevated liver function tests, present on admission, active -Hepatitis panel sent: hepatitis C positive, previous positive hepatitis A, and hepatomegaly seen on CT scan -She will need to be followed up as outpatient Pain Evaluation: Adequate Pain Control VTE Mechanical Devices: Intermittant Pneumatic CD Resuscitation Status: CPR: Attempt Resuscitation Attending Statement The patient was seen and examined together with Dr. Bennett on 10/14/2016 and I agree with the history, exam and plan as outlined in the note above. . Jennifer Bennett DO October 14, 2016 15:18 Bry Larsen MD October 15, 2016 08:04
--- NOTE | 2016-10-14 15:27 | NUR ---
NUTRITION ASSESSMENT: ASSESS: Pt is a 31yo F admitted for pneumonia and parapneumonic effusions. She is POD for 2 for chest tube placements. Once chest tube was able to be removed today. Surgery is following. She is on a general diet with variable PO intake. PO avg x4 days has been 65%. PMHX: IVDU LABS: Reviewed. Bun 4, Wool Fleece Grader .53, Glu 126, Ca 7.9, Alk phos 200, alb 2.0 MEDS: Reviewed. senna GI: BMx2 10/12 SKIN: Awais 22, no major issues CURRENT WTS: 82.8kg, BMI 28.6kg/m2, admit wt 77.8kg DIET: General, PO avg 65% EST. NEEDS: Kcals: 1820-2070kcal/day (22-25kcal/kg) Pro: 80-100g/day (1.0-1.2g/kg) NUTRITION DIAGNOSIS: 1.) Variable PO intake related to weakness/ respiratory distress as evidence by PO varying from 0 to 100% NUTRITION INTERVENTION: 1.) Continue current diet and encourage PO intake. If PO avg decreases to less than 50% of meals, recommend considering supps/snacks. MONITOR / EVAL: PO, wt, GI, labs, POC, nutrition status, Will continue to monitor per moderate nutrition risk guidelines.
[2016-10-14] MEDS: Polyethylene Glycol (PEG) 17 Gm Powder PO PRN (21:37)
[2016-10-15] VITALS (11 sets, daily range): BP systolic 114–134; BP diastolic 74–86; PULSE 91–96; RESP 16–24; O2SAT 94–98
[2016-10-15] MEDS: Heparin 5,000 Unit/mL Inj SUBQ SCH ×3 (00:30→17:12)
[2016-10-15] MEDS: HYDROmorphone PCA 0.2 mg/mL 30 mL Inj - Opioid Tolerant IV PRN ×2 (03:08→11:46)
[2016-10-15 03:35] LABS: Mean Corpuscular Hemoglobin 29.5 pg (27.0-35.0); Mean Corpuscular Volume 88.5 fL (81-100); Platelet Count 364 bil/L (150-400)
[2016-10-15 03:52] LABS: BASOPHILS % (AUTO) 1 % (0-3); EOSINOPHILS % (AUTO) 1 % (0-5); MONOCYTES % (AUTO) 3 % (4-12); NEUTROPHILS % (AUTO) 68 % (40-74)
--- NOTE | 2016-10-15 04:50 | NUR ---
Rest/Pain Pt has remained asleep through most of the shift and only wakes when getting vital signs or when pt is being assessed. Pt has only pushed the MANAGER ADVANCED button once during the shift. When asked pt will state that the pain around the chest tube insertion site is 7/10 and that the pt can tolerate 5-6/10.
[2016-10-15] MEDS: 0.9% Sodium Chloride 1,000 ML IV SCH (06:07)
[2016-10-15] MEDS: cefTRIAXone Inj 2,000 MG in Dextrose 5% Minibag Plus 50 ML IV SCH (08:49)
--- NOTE | 2016-10-15 09:30 | DRSVH ---
PROCEDURE: X-RAY CHEST ONE VIEW, PORTABLE ([id number]) INDICATIONS: f/u chest tubes TECHNIQUE: One view of the chest was acquired. COMPARISON: [facility], CR, XR CHEST 1VW (PORTABLE), 10/14/2016, 5:24. FINDINGS: Surgical changes and devices: Single right chest tube, which is grossly unchanged. A second right teod[address] st tube has been removed. Lungs and pleura: No pleural effusions or pneumothorax. Lung volumes are low and there is scattered bibasilar patchy opacities and retrocardiac consolidation. Mediastinum: Mediastinal contours appear normal. Heart size is normal. Bones and chest wall: No suspicious bony lesions. Overlying soft tissues appear unremarkable. IMPRESSION: No residual pneumothorax identified. Unchanged single right chest tube. Persistent bibasilar patchy consolidative opacities since yesterday Dictated by: Bob Robertson M.D. on 10/15/2016 at 9:27 Approved by: Bob Robertson M.D. on 10/15/2016 at 9:29
--- NOTE | 2016-10-15 12:10 | PROG NOTE ---
[address] [address] PROGRESS NOTE PATIENT: PAO GARCIA : 1985 MR#: [id number] ADMIT: 10/10/2016 JOB ID: [id number] DATE: 10/15/2016 INFECTIOUS DISEASE FOLLOWUP NOTE: REASON FOR FOLLOWUP: Group A strep empyema in an IV heroin user. INTERVAL HISTORY: The patient reports she has a great deal of pain in her right pleural space especially with deep inspiration. She has no fevers, chills, or significant cough. No nausea, vomiting, or diarrhea. She is anxious to leave the hospital as soon as this is feasible. One of her two chest tubes has been removed. PHYSICAL EXAMINATION: Reveals a comfortable young woman. Temp 37.4, blood pressure 114/74, pulse in the 90s, respiratory rate 18 to 24, saturating well on room air. She is awake, alert, conversational, appears depressed. Oral cavity negative. Lungs: Decreased breath sounds in right base. Abdomen: Negative. No skin rash noted. One chest tube still in place. LABORATORIES: Include white count 8800, with left shift, 7% bands, 2% metamyelocytes. Creatinine is 0.49. Alk phos slightly elevated at 171. AST and ALT are normal. Procalcitonin is coming down steadily from a peak of 17. It has come down in a more or less linear fashion, and is now 0.85. Cultures include the initial blood cultures, as well as blood cultures that grew a group A strep. Followup blood cultures have been negative. The pleural fluid showed gram-positive cocci but nothing grew which is typical of group A strep. The patient's ANNE showed no evidence of endocarditis. Other imaging studies include serial chest x-rays, which continue to show patchy airspace infiltrates. I reviewed today's chest x-ray, which shows considerable improvement of the right lung which is pretty impressive compared to where she started. One pleural drain is still in place, obviously. IMPRESSION: This is a classic story for a group A streptococcal empyema, which in this case was actually bacteremic. The patient has done well after video-assisted thoracoscopic surgery and is currently proceeding towards discharge here in the near future. I would continue with IV ceftriaxone and oral Flagyl until the patient is ready for discharge. At the time of discharge I would give a single dose of 1.5 g of dalbavancin x1. I recognize this is an expensive and very unusual way to treat group A strep empyema but the patient is an ongoing twice a day heroin user and we cannot send her out with any sort of intravascular device. Oral Augmentin in high doses might suffice for treatment of this but I am not confident and would prefer to give the dose of dalbavancin just to make sure there is a good highly active IV drug on board for a couple more weeks. RECOMMENDATIONS: 1. Continue ceftriaxone and Flagyl while she is here in the hospital. 2. On the day of discharge, give dalbavancin 1.5 g x1. 3. With discharge, I would send her out with amoxicillin 1 g p.o. b.i.d. plus Augmentin 875 p.o. b.i.d. for at least a three-week course. 4. The patient should follow up with me in clinic on October 27.
--- NOTE | 2016-10-15 14:13 | PROG NOTE ---
[address] [address] PROGRESS NOTE PATIENT: PAO GARCIA : 1985 MR#: [id number] ADMIT: 10/10/2016 JOB ID: [id number] DATE: 10/15/2016 SUBJECTIVE: The patient is seen in followup. She is having very little out of her chest tube. It was 20 cc. It is serous. There is no air leak. OBJECTIVE: Chest x-ray shows no pneumothorax. IMPRESSION: Improved. PLAN: Remove remaining right chest tube today.
--- NOTE | 2016-10-15 15:20 | NUR ---
Chest tube removal/sorto removal/activity levels MD removed chest tube around 1100. Pt able to tolerate through relaxing breathing techniques and RN FIRST ASSISTANT pump. Minimal serous drainage. Pt C/O 9/10 pain but subsided down after some rest. Sorto catheter removed around 1130. Sorto output 1100cc. Pt voided 400cc around 1200 and has since been consistently voiding. Note also that patient is menstruating so there has been red blood in her urine output. No c/o burning with urination as pt had experienced prior to admitting. Pt has gotten up to the BS X3 to void. Tolerating activity fair SBA but appears painful and weak. Will continue to monitor.
--- NOTE | 2016-10-15 19:25 | NUR ---
Treatment conversation Pt did express to RN a desire to no longer have drugs in her life. No specific discussion of rehabilitation, Suboxone. or treatment. Unable to locate social contact worker as discussion occurred around 1730. account executive sales representative, , and NOC RN notified.
--- NOTE | 2016-10-15 19:39 | PCM.PNMED ---
Subjective Date of Service October 15, 2016 Subjective Ms. Melendez is a 31 y/o woman with history of IVDU and methamphetamine and heroin abuse history who is here with pneumonia and parapneumonic effusions. She is positive for hepatitis C, negative for HIV, US Echo showed no concern for vegetations. This morning, she states that she continues to have right sided chest pain at the chest tube insertion. She is coughing. She does not have fever, chills, dyspnea, nausea, vomiting, abdominal pain, dysuria, or leg pain. She states that she has a good appetite and is eating and drinking well. She has some constipation. Exam Vital Signs Vital Sign - Last Date Time Temp Pulse Resp B/P Pulse Ox O2 Delivery O2 Flow Rate FiO2 10/15/16 04:43 24 95 10/15/16 04:09 37.3 92 134/86 Room Air 10/12/16 18:25 3 Intake and Output 10/14/16 10/14/16 10/15/16 Cumulative From/Thru 15:00 23:00 07:00 10/09/16 19:14 - 10/15/16 06:29 Intake Total 2368 ml 2187 ml 67468 ml Output Total 1700 ml 2220 ml 28817 ml Balance 668 ml -33 ml 8090 ml Intake Oral 1300 ml 1000 ml 7503 ml IV Total 1068 ml 1187 ml 81720 ml Output Urine Total 1700 ml 2200 ml 14621 ml Chest Tube Drainage Total 120 ml Drainage Total 20 ml 20 ml # Bowel Movements 0 4 Exam Skin: multiple needle knox in lines over veins, red raised slightly erythematous lesion, 3 cm round, anterior mcrae right significantly improved compared to ink border, 1-2 cm round erythematous lesion on left right finger. CV: RRR, normal S1 and S2, no s3/s4, no murmur, rubs, or gallops Resp: Scattered rhonchi upper lung todd and decreased breath sounds right lung base, no wheezing. [address] on the right, water sealed. GI: soft non distended, not tender Neuro: no gross motor or sensory deficits psych: appropriate mood and affect HEENT: NCAT Eyes: PERRLA, Scleral Anicteric Mouth: Mucous Membranes moist Neck: Supple, no Thyromegaly; IVs and Medications Medications Reviewed: Medications were reviewed in detail Lab and Diagnostics Result Diagram: 10/15/16 0322 10/15/16 0322 X-Rays, CTs and MRIs PROCEDURE: CT ANGIO CHEST PULMONARY EMBOLISM IMPRESSION: 1. No evidence of central pulmonary embolism. Evaluation of distal subsegmental branches is limited due to motion artifact and airspace consolidation. 2. Moderate to large right pleural effusion and trace left effusion. 3. Bibasilar consolidation most prominent within the right lower lobe most likely represents pneumonia. 4. A few peripheral small nodular opacities demonstrated in the right middle lobe and left lingula are also likely related to pneumonia. Consider short-term followup to demonstrate resolution if clinically indicated. 5. Splenomegaly with suggestion of hepatomegaly. Recommend correlation clinically and if indicated further evaluation may be obtained with ultrasound. Approved by: Ambrocio Hill M.D. on 10/10/2016 at 8:28 PROCEDURE: X-RAY CHEST ONE VIEW, PORTABLE IMPRESSION: 1. Stable position right pleural drains. 2. Bilateral patchy air space opacities consistent with atelectasis versus pneumonia. Dictated by: Jam Garcia RRA Interpreted: Ambreen Garcia MD on 10/13/2016 at 9: 28 Transcribed by: CHARLA on 10/13/2016 at 9:32 Cardiac Echo Impressions Echocardiogram Report Interpretation Summary The left ventricle is normal in size, wall thickness, and systolic function without any focal wall motion abnormalities. The ejection fraction is estimated to be 60-65%. No obvious vegetation seen. No significant valvular pathology seen. Reading Physician:PM Additional Diagnostics CLINICAL HISTORY: Right Thoracentesis ICD-10 code not given FINAL DIAGNOSIS: RIGHT THORACENTESIS FLUID: NEGATIVE FOR MALIGNANT CELLS. MESOTHELIAL CELLS AND INFLAMMATORY CELLS ARE PRESENT. ICD10 CODE J90 GROSS DESCRIPTION: Received fresh on 10/12/2016 is approximately 5 cc of cloudy brown fluid. Prepared are one cell block, one ThinPrep and one Cytospin slides.Vo ICD-9 CODES: CPT CODES: 1: 05092, 35273, 70949 Electronically Signed Out Silvano Herbert MD [facility] Pathology [facility] [address], [place] [address] Assessment & Plan Sarah Melendez is a 31-year-old female who presented to [facility] emergency department complaining of fever 4 days. Pain management -Dilaudid SOFTWARE ENGINEER MOBILE -Patient declines Suboxone to help with her detoxification and withdrawal from opioids prior to discharge and to help with coordination with an outpatient Suboxone clinic. -Plan to decrease opioids now that both chest tubes are removed. -Discussed with pharmacy an opioid taper: She was receiving Dilaudid 18 mg every hour for 24 hours for a total equivalent of 240 mg oxycodone. A decrease by 25% would be 180 mg per day of oxycodone. With 50% scheduled and 50 % as needed, then 15 mg every 4 hours scheduled with 5 mg every 2 hours as needed for 3 days, then 10 mg every 4 hours scheduled with 5 mg every 2 hours as needed for 3 days, then 5 mg every 4 hours as needed with 5 mg every 2 hours as needed for 3 days, then 2.5 mg every 4 hours as needed for 3 days -Continue to encourage patient to seek treatment for substance abuse IV heroin and methamphetamine use, present on admission, active -Social workers consulted -Continue to discuss treatment options for substance abuse -Pt declined Suboxone clinic. She should be given [place] Options information. -Pt should not be discharged with a PICC line for long-term antibiotics Right pleural effusion and empyema, present on admission, active. Status post VATS procedure. -Diagnostic and therapeutic thoracentesis performed -Darrian puss 20 cc was drained per radiology. -Follow pleural fluid cx: Elevated LDH, nonexistent glucose from the pleural fluid. Pathology was negative for malignancy. - Pulmonology consulted and following. Their time and recommendations are appreciated -VATS performed 10/12/16 and patient had both chest tubes on the right removed Sepsis, present on admission, improving -HR >100, RR 30 -empyema, UTI, and multifocal pneumonia with effusion, red erythematous spot on anterior right mcrae -Hep C positive, HIV neg -Fungal antibodies mildly elevated -TTE and ANNE showed no concern for vegetations. - Blood cx showed Group A Strep pyogenes -ID is consulted and appreciate their recommendations -Discontinued normal saline at 100 ml/hour since patient is now eating and drinking well. -Continue IV ceftriaxone and consider transitioning to a midline or PICC placement for IV penicillin. Per infectious disease, either ceftriaxone and penicillin will be needed for 7-14 additional days before transition to PO Augmentin. Should the patient want or need to leave earlier than that, we could consider one or two doses of dalbavancin to be followed by Augmentin. - Start every other day labs Multifocal pneumonia, present on admission, improving -PCR respiratory panel negative -Discontinued Zosyn, Levaquin. She is now on Flagyl and ceftriaxone. Discussion of switching ceftriaxone to penicillin if blood cultures remain negative. -Darrian puss 20 cc was drained per radiology -VATS on 10/12/16 -Elevated LDH, nonexistent glucose from the pleural fluid Hyponatremia, present on admission, resolved -Most likely due to hypovolemia. -On normal saline at 100 mL/h as she had been tachycardic and hypovolemic Urinary tract infection, present on admission, active -asymptomatic -above antibiotics -cullture is gram negative rods, E.coli that is pansensitive -Antibiotics as above Hypothyroidism, present on admission, active -Patient has not been on her thyroid medication for several months -TSH elevated and free T4 low -Levothyroxine 25 mg once daily in the morning started 10/12/16 -Will need monitored as an outpatient with recheck of TSH/T4 in 4-6 weeks Possible right anterior leg and left hand cellulitis, present on admission, improving -Ink applied to borders to follow -Antibiotics as above Elevated liver function tests, present on admission, active -Hepatitis panel sent: hepatitis C positive, previous positive hepatitis A, and hepatomegaly seen on CT scan -She will need to be followed up as outpatient Disposition: She will likely discharge in the next 1-3 days pending antibiotics course with a oxycodone taper for pain control. She should be given [place] Options information along with an appointment [facility] to follow up for this hospital visit. Pain Evaluation: Adequate Pain Control VTE Mechanical Devices: Intermittant Pneumatic CD Resuscitation Status: CPR: Attempt Resuscitation Attending Statement The patient was seen and examined together with Dr. Bennett on 10/15/2016 and I agree with the history, exam and plan as outlined in the note above. . Jennifer Bennett DO October 15, 2016 07:36 Bry Larsen MD October 16, 2016 17:07
[2016-10-16] VITALS (8 sets, daily range): BP systolic 112–123; BP diastolic 71–83; PULSE 70–99; RESP 16–20; O2SAT 93–97
[2016-10-16] MEDS: Heparin 5,000 Unit/mL Inj SUBQ SCH ×3 (01:23→17:58)
--- NOTE | 2016-10-16 06:09 | NUR ---
Pain/Rest/Activity/Respiratory Pt has 7-9/10 pain at the insertion sites of the 2 chest tubes. Pt has received scheduled Q4H roxycodone 15mg with minimal relief from pain. Pt did have a time where she requested the 5mg of roxycodone for break through pain but when I went in with the medication the pt was sleeping. Pt did rest through most of the night. Pt has been getting OOB to the BSC either with SBA or independently with no c/o dizziness or SOB. When asked pt did say that if the BSC is too far from the bed that she does tend to feel a little SOB.
--- NOTE | 2016-10-16 09:11 | PCM.PNSURG ---
Subjective Visit Information: Reason for Visit Rll Pneumonia Pleural Effusion Ivda Sirs Surgery/Surgery Date Post-Op Day # Date of Admission: October 10, 2016 at 00:26 Hospital Day # Subjective: all chest tubes are out, still having pain issues from the incisions Objective Objective Awake in bed Not short of breath R chest -- dressings x3 intact Vital Sign- Last 8 Hours Date Time Temp Pulse Resp B/P Pulse Ox O2 Delivery O2 Flow Rate FiO2 10/16/16 05:38 94 10/16/16 04:49 37.4 89 16 113/75 95 Room Air 10/16/16 01:29 37.2 94 18 117/78 95 Room Air Intake and Output- Last 8 Hour 10/16/16 Cumulative From/Thru 07:00 10/09/16 19:14 - 10/16/16 06:39 Intake Total 880 ml 53364 ml Output Total 2500 ml 02873 ml Balance -1620 ml 5480 ml Intake Oral 450 ml 8983 ml IV Total 430 ml 76038 ml Output Urine Total 2500 ml 41085 ml Chest Tube Drainage Total 120 ml Drainage Total 20 ml # Bowel Movements 4 Result Diagram: 10/15/16 0322 10/15/16 0322 Assessment & Plan Impression s/p R VATS for empyema UTI Positive blood culture Problems: Plan Plan per hospitalist service Abx per ID service Resuscitation Status: CPR: Attempt Resuscitation Nestor Bryant MD October 16, 2016 09:11
[2016-10-16] MEDS: cefTRIAXone Inj 2,000 MG in Dextrose 5% Minibag Plus 50 ML IV SCH (09:26)
--- NOTE | 2016-10-16 10:40 | PCM.PNMED ---
Subjective Date of Service October 16, 2016 Subjective Ms. Melendez is a 31 y/o woman with history of IVDU and methamphetamine and heroin abuse history who is here with pneumonia and parapneumonic effusions. She is positive for hepatitis C, negative for HIV, US Echo showed no concern for vegetations. She had the second chest tube removed yesterday. She continues to have 9/10 pain at the ride side of her chest. She gets short of breath when she gets out of bed. She continues to have a cough. She does not have fever, chills, abdominal pain, or dysuria. She still does not want information or help with substance abuse treatment. She is slightly diaphoretic. Exam Vital Signs Vital Sign - Last Date Time Temp Pulse Resp B/P Pulse Ox O2 Delivery O2 Flow Rate FiO2 10/16/16 09:46 37.3 99 20 123/83 94 Room Air 10/12/16 18:25 3 Intake and Output 10/15/16 10/15/16 10/16/16 Cumulative From/Thru 15:00 23:00 07:00 10/09/16 19:14 - 10/16/16 06:39 Intake Total 2310 ml 880 ml 25741 ml Output Total 3300 ml 2500 ml 72141 ml Balance -990 ml -1620 ml 5480 ml Intake Oral 1030 ml 450 ml 8983 ml IV Total 1280 ml 430 ml 80342 ml Output Urine Total 3300 ml 2500 ml 48280 ml Chest Tube Drainage Total 120 ml Drainage Total 20 ml # Bowel Movements 0 4 Exam Skin: diaphoretic, multiple needle knox in lines over veins, raised mildly erythematous, non-tender lesion, 3 cm round, anterior mcrae right significantly improved compared to ink border, 1-2 cm round erythematous lesion on left right finger. CV: RRR, normal S1 and S2, no s3/s4, no murmur, rubs, or gallops Resp: Mild scattered rhonchi upper lung todd, no wheezing. GI: soft non distended, not tender Neuro: no gross motor or sensory deficits psych: appropriate mood and affect HEENT: NCAT Eyes: PERRLA, Scleral Anicteric Mouth: Mucous Membranes moist Neck: Supple, no Thyromegaly; IVs and Medications Medications Reviewed: Medications were reviewed in detail Lab and Diagnostics Result Diagram: 10/15/16 0322 10/15/16 0322 X-Rays, CTs and MRIs PROCEDURE: CT ANGIO CHEST PULMONARY EMBOLISM IMPRESSION: 1. No evidence of central pulmonary embolism. Evaluation of distal subsegmental branches is limited due to motion artifact and airspace consolidation. 2. Moderate to large right pleural effusion and trace left effusion. 3. Bibasilar consolidation most prominent within the right lower lobe most likely represents pneumonia. 4. A few peripheral small nodular opacities demonstrated in the right middle lobe and left lingula are also likely related to pneumonia. Consider short-term followup to demonstrate resolution if clinically indicated. 5. Splenomegaly with suggestion of hepatomegaly. Recommend correlation clinically and if indicated further evaluation may be obtained with ultrasound. Approved by: Ambrocio Hill M.D. on 10/10/2016 at 8:28 PROCEDURE: X-RAY CHEST ONE VIEW, PORTABLE IMPRESSION: 1. Stable position right pleural drains. 2. Bilateral patchy air space opacities consistent with atelectasis versus pneumonia. Dictated by: Jam Garcia RRA Interpreted: Ambreen Garcia MD on 10/13/2016 at 9: 28 Transcribed by: CHARLA on 10/13/2016 at 9:32 Cardiac Echo Impressions Echocardiogram Report Interpretation Summary The left ventricle is normal in size, wall thickness, and systolic function without any focal wall motion abnormalities. The ejection fraction is estimated to be 60-65%. No obvious vegetation seen. No significant valvular pathology seen. Reading Physician:LYNETTE Additional Diagnostics CLINICAL HISTORY: Right Thoracentesis ICD-10 code not given FINAL DIAGNOSIS: RIGHT THORACENTESIS FLUID: NEGATIVE FOR MALIGNANT CELLS. MESOTHELIAL CELLS AND INFLAMMATORY CELLS ARE PRESENT. ICD10 CODE J90 GROSS DESCRIPTION: Received fresh on 10/12/2016 is approximately 5 cc of cloudy brown fluid. Prepared are one cell block, one ThinPrep and one Cytospin slides.Vo ICD-9 CODES: CPT CODES: 1: 81085, 96488, 24137 Electronically Signed Out Silvano Herbert MD [facility] Pathology [facility] [address], [place] [address] Assessment & Plan Sarah Melendez is a 31-year-old female who presented to [facility] emergency department complaining of fever 4 days. Pain management -Dilaudid SUPERVISOR OF COMMUNICATIONS -Patient declines Suboxone to help with her detoxification and withdrawal from opioids prior to discharge and to help with coordination with an outpatient Suboxone clinic. -Plan to decrease opioids now that both chest tubes are removed. -Discussed with pharmacy an opioid taper: She was receiving Dilaudid 18 mg every hour for 24 hours for a total equivalent of 240 mg oxycodone. A decrease by 25% would be 180 mg per day of oxycodone. -An option would be to do 50% scheduled and 50 % as needed, then 15 mg every 4 hours scheduled with 5 mg every 2 hours as needed for 3 days, then 10 mg every 4 hours scheduled with 5 mg every 2 hours as needed for 3 days, then 5 mg every 4 hours as needed with 5 mg every 2 hours as needed for 3 days, then 2.5 mg every 4 hours as needed for 3 days. -For now, 15 mg oxycodone every 4 hours as needed for pain -Continue to encourage patient to seek treatment for substance abuse IV heroin and methamphetamine use, present on admission, active -Social workers consulted -Continue to discuss treatment options for substance abuse -Pt declined Suboxone clinic. She should be given [place] Options information at discharge. -Pt should not be discharged with a PICC line for long-term antibiotics Right pleural effusion and empyema, present on admission, active. Status post VATS procedure. -Diagnostic and therapeutic thoracentesis performed -Darrian puss 20 cc was drained per radiology. -Follow pleural fluid cx: Elevated LDH, nonexistent glucose from the pleural fluid. Pathology was negative for malignancy. - Pulmonology consulted and following. Their time and recommendations are appreciated -VATS performed 10/12/16 and patient has had both chest tubes on the right removed Sepsis, present on admission, improving -HR >100, RR 30 -empyema, UTI, and multifocal pneumonia with effusion, red erythematous spot on anterior right mcrae -Hep C positive, HIV neg -Fungal antibodies mildly elevated -TTE and ANNE showed no concern for vegetations. - Blood cx showed Group A Strep pyogenes -ID is consulted and appreciate their recommendations -Discontinued normal saline at 100 ml/hour since patient is now eating and drinking well. -Continue IV ceftriaxone and consider transitioning to a midline or PICC placement for IV penicillin. Per infectious disease, either ceftriaxone and penicillin will be needed for 7-14 additional days before transition to PO Augmentin. Should the patient want or need to leave earlier than that, we could consider one or two doses of dalbavancin to be followed by Augmentin. - Monitor with labs tomorrow but continue to do every other day labs Multifocal pneumonia, present on admission, improving -PCR respiratory panel negative -Discontinued Zosyn, Levaquin. She is now on Flagyl and ceftriaxone. Discussion of switching ceftriaxone to penicillin if blood cultures remain negative. -Darrian puss 20 cc was drained per radiology -VATS on 10/12/16 -Elevated LDH, nonexistent glucose from the pleural fluid Hyponatremia, present on admission, resolved -Most likely due to hypovolemia. -Stopped normal saline at 100 mL/h as she had been tachycardic and hypovolemic Urinary tract infection, present on admission, active -asymptomatic -above antibiotics -cullture is gram negative rods, E.coli that is pansensitive -Antibiotics as above Hypothyroidism, present on admission, active -Patient has not been on her thyroid medication for several months -TSH elevated and free T4 low -Levothyroxine 25 mg once daily in the morning started 10/12/16 -Will need monitored as an outpatient with recheck of TSH/T4 in 4-6 weeks Possible right anterior leg and left hand cellulitis, present on admission, improving -Ink applied to borders to follow -Antibiotics as above Elevated liver function tests, present on admission, active -Hepatitis panel sent: hepatitis C positive, previous positive hepatitis A, and hepatomegaly seen on CT scan -She will need to be followed up as outpatient Disposition: She will likely discharge in the next 1-3 days pending antibiotics course with a oxycodone taper for pain control. She should be given [place] Options information along with an appointment [facility] to follow up for this hospital visit. Pain Evaluation: Adequate Pain Control VTE Mechanical Devices: Intermittant Pneumatic CD Resuscitation Status: CPR: Attempt Resuscitation Attending Statement The patient was seen and examined together with Dr. Bennett on 10/16/2016 and I agree with the history, exam and plan as outlined in the note above. . Jennifer Bennett DO October 16, 2016 10:40 Bry Larsen MD October 18, 2016 15:22
--- NOTE | 2016-10-16 10:59 | NUR ---
Physical Therapy: PT order received. Pt declined PT evaluation this am. She has been getting up to BSC with SBA/ind. Pt walked with RN in hallway later this am with no mobility issues noted by RN. Spoke with resident, no PT indicated at this time. Pt to continue to mobilize with nursing staff.
--- NOTE | 2016-10-16 18:08 | NUR ---
Pain/activity Pt c/o 9/10 pain to incision site on right mid back twice today. Pt resting with eyes closed with reassessment. In afternoon, REPORTING ANALYST reporting pt needing pain meds for 9/10 pain. When checked on pt, pt was resting with eyes closed while snoring. Meds held for that time. Came back around 1730 asking pt to ambulate around hallway, pt refused stating having pain. Pt made aware pain meds can't be given while sleeping. Pt using foul language telling RN to get out of her room now. Pt given 15min to cool down when recheck on patient about pain, pt refusing to state pain and refused pain meds. MD made aware. Pt able to walk shelter around nurse unit this am, pt desating to high 80s, only taking shallow breaths. Pt returned to room with no c/o dizziness or sob. Ongoing care.
[2016-10-16] MEDS: Polyethylene Glycol (PEG) 17 Gm Powder PO PRN (19:53)
[2016-10-17] MEDS: Heparin 5,000 Unit/mL Inj SUBQ SCH ×3 (00:18→16:30)
[2016-10-17 00:57] VITALS: BP 114/74; PULSE 86; RESP 16; O2SAT 94
[2016-10-17 04:38] LABS: BASOPHILS % (AUTO) 0 % (0-3); Mean Corpuscular Hemoglobin 29.5 pg (27.0-35.0); Mean Corpuscular Volume 91.6 fL (81-100); NEUTROPHILS % (AUTO) 75 % (40-74); Platelet Count 360 bil/L (150-400)
[2016-10-17 04:39] LABS: EOSINOPHILS % (AUTO) 0 % (0-5); MONOCYTES % (AUTO) 6 % (4-12)
--- NOTE | 2016-10-17 05:56 | NUR ---
Activity/Respiratory/Pain/GI Pt ambulated independently in the room with no c/o SOB or pain. Pt says that she has less difficulty catching breath when up and walking to the bathroom. Pt has only requested pain medication twice during the shift for pain -02/06. Pt has been made aware that next time pt is to get up and go for a walk that she should pre-medicate with the pain medication prior to activity. Pt was made aware that activity and movement will help her to have a BM. Pt has not had a BM since 10/10/2016. Pt was given 17gm Miralax to assist with softening the stool and making it easier to pass when the pt is ready to have a BM.
[2016-10-17 07:53] VITALS: PULSE 56
[2016-10-17] MEDS: cefTRIAXone Inj 2,000 MG in Dextrose 5% Minibag Plus 50 ML IV SCH (08:04)
[2016-10-17 09:04] VITALS: BP 118/83; PULSE 83; RESP 16; O2SAT 96
[2016-10-17] MEDS ORDERED: Dalbavancin 500 mg Inj IV ONE (09:10)
[2016-10-17] MEDS ORDERED: Dalbavancin Inj 1,500 MG in Dextrose 5% 500 ML IV ONE (09:20)
--- NOTE | 2016-10-17 09:48 | PCM.PNSURG ---
Subjective Visit Information: Reason for Visit Rll Pneumonia Pleural Effusion Ivda Sirs Surgery/Surgery Date Post-Op Day # Date of Admission: October 10, 2016 at 00:26 Hospital Day # Subjective: R chest incisional pain getting better, breathing better, passing flatus, no BM yet Objective Objective Awake in bed R chest -- incisions clean without erythema, sutures in place Vital Sign- Last 8 Hours Date Time Temp Pulse Resp B/P Pulse Ox O2 Delivery O2 Flow Rate FiO2 10/17/16 09:04 36.7 83 16 118/83 96 Room Air 10/17/16 07:53 56 Intake and Output- Last 8 Hour 10/17/16 Cumulative From/Thru 07:00 10/09/16 19:14 - 10/17/16 06:51 Intake Total 550 ml 69118 ml Output Total 05540 ml Balance 550 ml 6436 ml Intake Oral 550 ml 9869 ml IV Total 31344 ml Output Urine Total 44595 ml Chest Tube Drainage Total 120 ml Drainage Total 20 ml # Voids 2 4 # Bowel Movements 0 4 Result Diagram: 10/17/16 0323 10/17/16 0323 Assessment & Plan Impression s/p R VATS for empyema WBC 8 Pain improving Problems: Plan Surgery will sign off for now. Re-consult prn. Abx per ID service recommendation Laxatives prn for BM Resuscitation Status: CPR: Attempt Resuscitation Nestor Bryant MD October 17, 2016 09:48
--- NOTE | 2016-10-17 10:00 | NUR ---
Mirolax Pt refused Mirolax this am> PT educated on the need for stool softeners with the use of narcotics. Pt still refused.
--- NOTE | 2016-10-17 10:32 | NUR ---
Social Work: Discharge D: Pt discussed in am rounds. Chest tubes were discontinued and pt transitioned to oral abx. Pt is ready for discharge per MD. FLAT HAMMERER met with pt at bedside to attempt a final CD assessment. Pt continues to decline to participate in assessment and resources from FLAT HAMMERER. Pt is not interested in a CDP bedside assessment, methadone or Suboxone. Pt denies any current suicidal or homicidal ideation, plan or intent. Pt states she has no concerns about her discharge and that she will have a friend come to pick her up. Pt states she lives in [place]. Her only identified discharge need is for a follow up primary care appointment. Pt does not have a PCP and is interested in an [facility] appointment. Pt states that she does not have a reliable phone but will borrow one from a friend to schedule an appointment. Pt was provided with the contact information for the [facility] and will call on Tuesday to schedule. FLAT HAMMERER updated MD on this; he will provide clinicals to the [facility]. A: Pt who is I at baseline. P: Pt to discharge home and follow up with [facility] for follow up PCP appointment. No other sw needs at this time. LASHAUN Bautista
[2016-10-17 12:40] VITALS: PULSE 91; RESP 18; O2SAT 98
[2016-10-17] MEDS ORDERED: SENN-133 PO (12:59)
[2016-10-17] MEDS ORDERED: LEVO50TA6 PO (12:59)
[2016-10-17] MEDS ORDERED: OXYC-474 PO (12:59)
[2016-10-17] MEDS ORDERED: AMOX-366 PO (13:15)
[2016-10-17] MEDS ORDERED: AMOX500T2 PO (13:15)
[2016-10-17] MEDS ORDERED: LACT1CAP65 PO (13:15)
--- NOTE | 2016-10-17 13:15 | PROG NOTE ---
[address] [address] PROGRESS NOTE PATIENT: PAO GARCIA : 1985 MR#: [id number] ADMIT: 10/10/2016 JOB ID: [id number] DATE: 10/17/2016 REASON FOR FOLLOWUP: Group A Strep empyema, status post decortication and chronic hepatitis C. INTERVAL HISTORY: Over the past two days since I have last seen the patient, she is much improved. She notes she has occasional subjective fevers and still some mild right pleuritic chest pain, but she does note that these are both much, much better and she is quite anxious to be discharged. This morning, she has no fevers, chills, or sweats. No sore throat. No headache. Some mild right pleuritic chest pain with a deep breath. No nausea, vomiting, diarrhea. PHYSICAL EXAMINATION: Reveals an afebrile woman, temp 37, pulse 86, respiratory rate 16, blood pressure 114/74. She is saturating well on room air. In no distress whatsoever. Eyes without conjunctivitis. Oral cavity without thrush or pharyngitis. Lungs with decreased breath sounds at the right base. Cardiac tones: Regular rate and rhythm. No skin rash. LABORATORIES: Include white count 8100. Diff essentially normal; three bands are present, but this would be within a normal range and much improved over prior. Creatinine stable at 0.52. LFTs completely normal. Procalcitonin today down to 0.38 from a peak of 17, so she has had a 98% drop basically in her procalcitonin. The patient's hepatitis C is positive with viral load 710,000, genotype pending. Micro studies include negative blood cultures. The pleural fluid never grew but did have gram-positive cocci on the Gram stain and the blood cultures did grew group A Strep. Last chest x-ray was October 15. Showed the bibasilar patchy infiltrates. IMPRESSION: This patient suffered a rather classic case of group A Strep empyema, which is a very severe form of empyema, primarily seen in young adults. She underwent VATS and has done extremely well and now has had both chest tubes removed. She looks quite stable and her procalcitonin and has shown a dramatic drop. At this point, I would ordinarily continue perhaps for a few more days in the hospital with IV ceftriaxone and then send the patient out on a combination of oral amoxicillin and Augmentin. Given the patient's heavy IV drug use up to the time of admission, I think sending her out with a PICC line and having her come back for daily IV antibiotics would be a mistake and likewise keeping her here much longer may not be advantageous as the patient wants to leave and really is quite stable at this juncture. RECOMMENDATIONS: 1. I would give her a last dose of ceftriaxone today. 2. Will go ahead and give her a 1.5 g dose of dalbavancin IV today. 3. The dalbavancin will suffice as IV therapy for about two weeks without need of ongoing IV therapy, and I think even though it is expensive, it is a good insurance policy to decrease the risk of readmission and also enable the patient to get home sooner. 4. At the time of discharge, perhaps later today or tomorrow, I would give the patient Augmentin 875 p.o. b.i.d., as well as amoxicillin 1 g p.o. b.i.d. to be taken for approximately four weeks. The exact duration of treatment for empyema is an unknown and is best decided on a [id number] basis, but I think if we give her the single dose of dalbavancin, that will take her through a couple weeks and the addition of the oral antibiotics for a month or so would probably be adequate, but she should ideally follow up in a couple weeks. 5. I would like to see the patient in my clinic on October 27, if possible. 6. The patient will require treatment for hepatitis C, but obviously first we need to resolve the issues with her empyema and hopefully also start a plan in terms of drug addiction. This case discussed in person with Dr. Larsen.
--- NOTE | 2016-10-17 13:25 | PCM.DIMED ---
FuVictor Hugo jeffrey DO 10/17/16 1325: Discharge Instructions Date of Service October 17, 2016 Dates of Hospitalization October 10, 2016 at 00:26 Discharge Diagnosis Discharge Diagnosis Lung infection with infected fluid around your lung which required draining and strong antibiotics. You also had a urinary infection treated with the same antibiotics. We managed your pain while here in hospital, and now that the chest tubes (to drain the fluid) are out, we have sent you home on a dosing schedule (It is vitally important that you follow the schedule provided, and not misuse the medication). I applaud your resolve to stop using drugs. Please know that the likelihood of success increases with help beyond your determination. There are several options available to you: Suboxone, Methadone, treatment centers (both inpatient and outpatient); Please contact your doctor if you desire our assistance in any way to help you be successful. Medication Instructions Stop taking Tramadol. Start taking the following medications as directed: Oxycodone (follow the schedule below): Take 3 tabs (5mg each tab) every 4 hours for the rest of today (10/17/16), then take 2 tabs every 4 hours for the next 3 days, then take 1 tab every 4 hours for the next 3 days, then take 1/2 tab every 4 hours for the next 3 days, then stop. Follow this schedule. Senna: take 1 tab twice a day for constipation while on the narcotic above. Levothyroxine: take 1 tab every morning 1 HOUR BEFORE you eat or drink anything except water or black coffee Amoxicillin: take 2 tablets by mouth twice a day for 1 month (take this medication with the Augmentin (also known as Amoxicillin/Clav)) Augmentin (AKA Amoxicillin/Clav): take 1 tablet by mouth twice a day for 1 month (take this medication with the Amoxicillin) Take the Probiotic tablet twice a day (this will help to avoid some side effect of the antibiotic) Diet No restrictions (You can eat according to your tolerance. Recommend a healthy diet.) Activity No restrictions (OK to take it easy for a couple days, but you need to be up and moving around. It is OK to go for walks. Rest when you feel tired.) Call your provider Fever or Chills, Shortness of breath, Bleeding, Chest pain, Vomitting, Excessive diarrhea, Weakness (unilateral), Other (If you experience any new or concerning symptoms, please call your doctor, or return to the hospital.) Patient Instructions Please follow all of the medication schedules noted above. It is very important that you take all your directed medications as noted above. Follow-up plan Follow up with the residency clinic here in [place] within 1-2 weeks. Please call the clinic tomorrow to confirm your appointment. [address], [place], [address] Please discuss your hospitalization and the medications we are starting. It is also a great idea to follow up with them about your treatment options to help you overcome your addiction. Bry Larsen MD 10/18/16 1516: Discharge Instructions Attending's Statement The patient was seen and examined together with Dr. Crocker on 10/17/2016 and I agree with the history, exam and plan as outlined in the note above. . Victor Hugo Beltran DO October 17, 2016 13:25 Bry Larsen MD October 18, 2016 15:16
--- NOTE | 2016-10-17 19:58 | NUR ---
D/C PT's ride came and pt d/c at this time. All d/c orders were reviewed with the prior RN. PT does not have any questions at this time.
--- NOTE | 2016-10-18 13:09 | PCM.DC.MED ---
Discharge Summary Date of Service October 18, 2016 Dates of Hospitalization Date of Hospital Admission October 10, 2016 at 00:26 Date of Discharge: October 17, 2016 Providers: Admitting Physician: Milly Aburto DO Primary Care Physician: Nopcp Attending Physician: Milly Aburto DO Diagnosis at Time of Discharge Diagnosis at Time of Discharge Right pleural effusion and empyema. Status post VATS procedure with placement ( and subsequent removal) of chest tubes x 2. Sepsis secondary to multifocal pneumonia with empyema, and UTI GAS empyema with multifocal pneumonia Hyponatremia, hypovolemic, resolved E. coli (pansensitive) urinary tract infection Hypothyroidism Right anterior leg and left hand cellulitis Hepatitis C, no history of treatment Polysubstance abuse including IVDA (heroin and meth), declined all attempts to facilitate treatment plan Consultations Infectious Disease Surgery Procedures XRay, CTs & MRIs PROCEDURE: CT ANGIO CHEST PULMONARY EMBOLISM IMPRESSION: 1. No evidence of central pulmonary embolism. Evaluation of distal subsegmental branches is limited due to motion artifact and airspace consolidation. 2. Moderate to large right pleural effusion and trace left effusion. 3. Bibasilar consolidation most prominent within the right lower lobe most likely represents pneumonia. 4. A few peripheral small nodular opacities demonstrated in the right middle lobe and left lingula are also likely related to pneumonia. Consider short-term followup to demonstrate resolution if clinically indicated. 5. Splenomegaly with suggestion of hepatomegaly. Recommend correlation clinically and if indicated further evaluation may be obtained with ultrasound. Approved by: Ambrocio Hill M.D. on 10/10/2016 at 8:28 PROCEDURE: X-RAY CHEST ONE VIEW, PORTABLE IMPRESSION: 1. Stable position right pleural drains. 2. Bilateral patchy air space opacities consistent with atelectasis versus pneumonia. Dictated by: Jam Garcia RRA Interpreted: Ambreen Garcia MD on 10/13/2016 at 9: 28 Transcribed by: CHARLA on 10/13/2016 at 9:32 ECG 12 Lead Showed only sinus tachycardia. Cardiac Echo Impression Echocardiogram Report Interpretation Summary The left ventricle is normal in size, wall thickness, and systolic function without any focal wall motion abnormalities. The ejection fraction is estimated to be 60-65%. No obvious vegetation seen. No significant valvular pathology seen. Reading Physician:PM Invasive Procedures Thoracentesis VATS procedure Thoracostomy tube placement x 2 Brief History The following is taken from Dr. Jain's H&P dated 10/10/16: Sarah Melendez is a 31-year-old female who presented to [facility] emergency department complaining of fever 4 days. She reports that 3 days ago she began having fevers. She reports that on the second day she could not take a deep breath due to pleuritic chest pain. She has had associated chills, pleuritic chest pain, difficulty breathing, and rib cage pain. She denies headache, vision changes, sore throat, cough, chest pain, abdominal pain, nausea , vomiting, dysuria, diarrhea or constipation. She reports decreased appetite, however, she has been very thirsty and drinking lots of fluids. She reports that her roommate has pneumonia and she has been in close contact. She does not have a history of asthma. She is still using IV heroin twice daily. She reports she uses clean needles that she receives from the [employer]. She denies sharing needles. She last used IV heroin yesterday. Vital signs in the ER: Temperature 37.9. Pulse 122. Respiratory rate 14. Blood pressure 125/80. Pulse ox 96% on room air. She received Zosyn 3.375 g 1 , vancomycin 1, DuoNeb 1, AccuNeb 1, and Tylenol 975 mg 1. No PCP. Hospital Course Sarah Melendez is a 31-year-old female who presented to [facility] emergency department complaining of fever 4 days. Right pleural effusion and empyema, present on admission, active. Status post VATS procedure. Resolving -Diagnostic and therapeutic thoracentesis performed 10/10 -Darrian puss 20 cc was drained per radiology. -Follow pleural fluid cx: GPC -Elevated LDH, nonexistent glucose from the pleural fluid. Pathology was negative for malignancy. - Pulmonology consulted and following. Their time and recommendations are appreciated -VATS performed 10/12/16 followed by placement of 2 chest tubes in R thorax (s/ p removal on 10/14 and 10/15) at which time the patient was transitioned to PO narcotics for pain control. Sepsis, present on admission, resolving -HR >100, RR 30 at time of admission -empyema, UTI, and multifocal pneumonia with effusion, red erythematous spot on anterior right mcrae -Hep C positive, HIV neg -Fungal antibodies mildly elevated (please note that this was checked after Zosyn administered) -TTE and ANNE showed no concern for vegetations. - Blood cx showed Group A Strep pyogenes -ID is consulted and appreciate their recommendations -Discontinued normal saline at 100 ml/hour since patient eating and drinking well. -Continued IV ceftriaxone with Flagyl. Initially started on Levofloxacin, Zosyn and Vanco, but switched to the aforementioned course as culture data revealed. -On day of discharge, patient received one dose of IV Dalbavancin -Discharged with one month of high dose Amoxicillin with Clav (Amoxicillin 1g BID with Augmentin 875mg BID). Multifocal pneumonia, present on admission, resolving -PCR respiratory panel negative, Suspect GAS etiology given empyema and blood culture results -management as above Hyponatremia, present on admission, resolved -Most likely due to hypovolemia. -IVF as above Urinary tract infection, present on admission, active -asymptomatic -above antibiotics -cullture is E.coli that is pansensitive Hypothyroidism, present on admission, active -Patient has not been on her thyroid medication for several months -TSH elevated and free T4 low -Levothyroxine 25 mg once daily in the morning started 10/12/16 -Will need monitored as an outpatient with recheck of TSH/T4 in 4-6 weeks Right anterior leg and left hand cellulitis, present on admission, Resolved -Antibiotics as above Hepatitis C, with h/o Hep A. -Hepatitis panel sent: hepatitis C positive, previous positive hepatitis A, and hepatomegaly seen on CT scan -She will need to be followed up as outpatient with consideration for treatment options. Certainly, she needs to address her ongoing drug abuse as this puts her at significant risk of recurrence. 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 Once these were removed, transitioned to PO narcotics on taper schedule. -Patient declines Suboxone to help with her detoxification and withdrawal from opioids prior to discharge and to declines help with coordination with an outpatient Suboxone clinic. -Discussed with pharmacy an opioid taper: See schedule in discharge medications below. -Continue to encourage patient to seek treatment for substance abuse IV heroin and methamphetamine use, present on admission, active -Social workers consulted, but unfortunately patient declined any attempts to offer help. -Continue to discuss treatment options for substance abuse -Pt declined Suboxone clinic. [facility] information at discharge. -Central IV access removed following Dalbavancin dose prior to discharge. On the day of discharge, patient's systemic inflammatory symptoms had resolved as her infection was being treated, her pain was well controlled with PO medications, she was eating and drinking without difficulty, voiding and stooling without problem, and ambulating independently. Her antibiotic course continues in outpatient setting with high-dose Augmentin. Exam Vital Signs (Last) Date Time Temp Pulse Resp B/P Pulse Ox O2 Delivery O2 Flow Rate FiO2 10/17/16 12:40 91 18 98 Room Air 10/17/16 09:04 36.7 118/83 10/12/16 18:25 3 Exam PE on day of discharge: General: well-nourished woman in NAD sitting in bed watching TV. HEENT: NOrmocephalic, PERRL, Scleral Anicteric, Mucous Membranes moist Neck: Supple, no Thyromegaly; CV: RRR, normal S1 and S2, no s3/s4, no murmur, rubs, or gallops Resp: CTAB with normal resp effort GI: soft, non distended, not tender, BT present Skin: dry and warm, multiple needle knox in lines over veins Ext: No appreciable edema/cyanosis/clubbing Neuro: no gross motor or sensory deficits, CN2-12 grossly normal psych: appropriate mood and affect Test 10/09/16 05:45 10/09/16 21:26 10/09/16 21:55 10/09/16 23:44 Urine Legionella pneumophilia Ag Negative (Negative) Prothrombin Time 10.2sec (8.1-12.5) Prothromb Time International Ratio 0.95ratio Activated Partial Thromboplast Time 33.3sec (22.8-33.0) D-Dimer 2.26mg/L FEU (<0.50) Osmolality 266 (275-300) Pro-B-Type Natriuretic Peptide 245.4pg/mL (0-130) Thyroid Stimulating Hormone (TSH) 11.340uIU/mL (0.450-4.500) Lactic Acid Level 1.5mmol/L (0.4-2.0) Urine Color Dark yellow (YELLOW) Urine Appearance Hazy (CLEAR,HAZY) Urine pH 6.0 (5.0-8.0) Urine Specific [place] 1.016 (1.003-1.035) Urine Protein Tracemg/dL (NEG,TRACE) Urine Glucose (UA) Negativemg/dL (NEGATIVE) Urine Ketones Negativemg/dL (NEGATIVE) Urine Occult Blood Large (NEGATIVE) Urine Nitrite Positive (NEGATIVE) Urine Bilirubin Negative (NEGATIVE) Urine Urobilinogen Normalmg/dL (NORMAL) Urine Leukocyte Esterase Negative (NEGATIVE) Urine RBC 0-2/hpf (0-2) Urine WBC 6-10/hpf (0-5) Urine Epithelial Cells Many/hpf (NONE-MOD) Urine Crystals None seen (NONE SEEN) Urine Bacteria Many/hpf (NONE-FEW) Urine Hyaline Casts None/lpf (NONE) Urine Granular Casts None seen (NONE SEEN) Urine Waxy Casts None seen (NONE SEEN) Urine Red Blood Cell Casts None seen (NONE SEEN) Urine White Blood Cell Casts None seen (NONE SEEN) Urine Mucus None seen (None Seen) Urine Trichomonas None seen (NONE SEEN) Urine Yeast None (NONE SEEN) Urinalysis Comment None Urine Culture Reflexed Indicated Test 10/10/16 01:04 10/10/16 01:42 10/10/16 08:15 10/10/16 11:50 Urine Osmolality 265mOs/kH2O (250-1200) Urine Random Sodium 10mEq/L Urine Opiates Screen Positive Urine Methadone Screen Negative Urine Barbiturates Screen Negative Urine Amphetamines Screen Positive Urine Benzodiazepines Screen Negative Urine Cocaine Metabolite Screen Negative Urine Cannabinoids Screen Negative Hepatitis A IgM Antibody Negative (Negative) Hepatitis B Surface Antigen Negative (Negative) Hepatitis B Core IgM Antibody Negative (Negative) Hepatitis C Antibody >11.0s/co ratio Hepatitis C Antibody Comment Comment (.) HIV (1&2) Ag and Ab, 4th Generation Non reactive (Non Reactive) Fungal Antibodies 96pg/mL (<80) Test 10/11/16 00:30 10/11/16 02:55 10/11/16 05:55 10/11/16 08:30 Vancomycin Level Trough 9.9mcg/mL Direct Bilirubin 0.7mg/dL (0.0-0.3) Erythrocyte Sedimentation Rate 60mm/hr (0-32) Magnesium Level 2.0mg/dL (1.6-2.6) Total Creatine Kinase 30U/L (21-215) Free Thyroxine 0.33ng/dL (0.82-1.77) Human Chorionic Gonadotropin, Qual Negative (Negative) Body Fluid Source Pleural fluid Body Fluid Color Straw (Clear) Body Fluid Appearance Turbid Body Fluid pH 7.1 (Not Estab.) Body Fluid WBC /mm3 Body Fluid RBC /mm3 Body Fluid Polynuclear WBCs 87% Body Fluid Lymphocytes 7% Body Fluid Monocytes 0% Body Fluid Eosinophils 6% Body Fluid Basophils 0% Body Fluid Lactate Dehydrogenase 03479U/L Body Fluid Comment Pleural Fluid Total Protein 4.8g/dL Pleural Fluid Glucose < 2mg/dL Test 10/11/16 14:20 10/13/16 04:05 10/15/16 03:22 10/17/16 03:23 Hepatitis A Antibody Total Positive (Negative) Hepatitis B Surface Antibody Reactive (.) Hepatitis B Core Total Antibody Negative (Negative) Hepatitis C Virus Quantitation [id number]/mL (.) Hepatitis C RNA (PCR) log10 5.851 (.) Hepatitis C Comment Comment (.) Hematology Comments Metamyelocytes % 2% (0-0) White Blood Count 8.1th/mm3 (3.8-10.1) Red Blood Count 4.03mil/mm3 (3.90-5.20) Hemoglobin 11.9g/dL (12.0-15.6) Hematocrit 36.9% (35.0-46.0) Mean Corpuscular Volume 91.6fL (81-100) Mean Corpuscular Hemoglobin 29.5pg (27.0-35.0) Mean Corpuscular Hemoglobin Concent 32.2% (32.0-37.0) Red Cell Distribution Width 14.4% (12.3-15.4) Platelet Count 360bil/L (150-400) Neutrophils (%) (Auto) 75% (40-74) Lymphocytes (%) (Auto) 16% (14-46) Monocytes (%) (Auto) 6% (4-12) Eosinophils (%) (Auto) 0% (0-5) Basophils (%) (Auto) 0% (0-3) Band Neutrophils % 3% (1-5) Sodium Level 134mEq/L (134-144) Potassium Level mEq/L (3.5-5.2) Chloride Level 98mEq/L (97-108) Carbon Dioxide Level 24mmol/L (18-29) Blood Urea Nitrogen 5mg/dL (6-20) Creatinine 0.52mg/dL (0.57-1.00) Estimat Glomerular Filtration Rate 197mL/min (>59) Glucose Level 95mg/dL (60-99) Calcium Level 8.4mg/dL (8.5-10.1) Total Bilirubin 0.5mg/dL (0.0-1.2) Aspartate Amino Transf (AST/SGOT) 40U/L (0-50) Alanine Aminotransferase (ALT/SGPT) 22U/L (0-32) Alkaline Phosphatase 150U/L (25-150) Total Protein 7.4g/dL (6.4-8.4) Albumin 2.5g/dL (3.4-5.0) Procalcitonin 0.38ng/mL (0.00-0.08) Microbiology Results GAS in blood cultures Pleural fluid showed GPC on gram stain Pansensitive E. coli in urine Discharge Medications Discharge Medications Amoxicillin (Amoxicillin) 500 Mg Tablet 1,000 MG PO BID Take 2 capsules by mouth twice daily (total of 4 capsules a day) for 1 month. Prescribed by: MILAGROS CROCKER DO Amoxicillin/Clav K 875-125 mg (Augmentin 875-125 mg) 1 Each Tablet 1 TABLET PO BID Take 1 tab by mouth twice daily with the Amoxicillin for 1 month. Prescribed by: MILAGROS CROCKER DO Lactobacillus Acidophilus (Probiotic) 1 Each Capsule 1 EACH PO DAILY Prescribed by: MILAGROS CROCKER DO Levothyroxine (Levothyroxine) 50 Mcg Tablet 50 MCG PO DAILYAC Take 1 hour prior to breakfast before you eat or drink anything other than water. Prescribed by: MILAGROS CROCKER DO As needed Oxycodone (Roxicodone) 5 Mg Tablet 5 MG PO Q4H PRN PRN For Pain Take 3 tabs every 4 hours for the rest of the day. Take 2 tabs every 4 hours for next 3 days. Take 1 tab every 4 hours for next 3 days. Take 1/2 tab every 4 hours for 3 days, stop. Prescribed by: MILAGROS CROCKER DO Sennosides (Senna) 8.6 Mg Tablet 8.6 MG PO BID PRN PRN For Constipation Prescribed by: MILAGROS CROCKER DO Additional med instructions Stop taking Tramadol. Start taking the following medications as directed: Oxycodone (follow the schedule below): Take 3 tabs (5mg each tab) every 4 hours for the rest of today (10/17/16), then take 2 tabs every 4 hours for the next 3 days, then take 1 tab every 4 hours for the next 3 days, then take 1/2 tab every 4 hours for the next 3 days, then stop. Follow this schedule. Senna: take 1 tab twice a day for constipation while on the narcotic above. Levothyroxine: take 1 tab every morning 1 HOUR BEFORE you eat or drink anything except water or black coffee Amoxicillin: take 2 tablets by mouth twice a day for 1 month (take this medication with the Augmentin (also known as Amoxicillin/Clav)) Augmentin (AKA Amoxicillin/Clav): take 1 tablet by mouth twice a day for 1 month (take this medication with the Amoxicillin) Take the Probiotic tablet twice a day (this will help to avoid some side effect of the antibiotic) Followup Plan Disposition: HOme Follow-up plan Follow up with the residency clinic here in [place] within 1-2 weeks. Please call the clinic tomorrow to confirm your appointment. [address] [place] [address], [place], [facility] Please discuss your hospitalization and the medications we are starting. It is also a great idea to follow up with them about your treatment options to help you overcome your addiction. Follow up with Dr. Love, infectious disease specialist, on October 27. Discharge Diet: No restrictions (You can eat according to your tolerance. Recommend a healthy diet.) Discharge Activity: No restrictions (OK to take it easy for a couple days, but you need to be up and moving around. It is OK to go for walks. Rest when you feel tired.) Patient Instructions Please follow all of the medication schedules noted above. It is very important that you take all your directed medications as noted above. Time spent Greater than 30 minutes was spent in preparation of discharge with greater than 50% of that time dedicated to patient counseling and coordination of care. . Attending Statement The patient was seen and examined together with Dr. Crocker on 10/17/2016 and I agree with the history, exam and plan as outlined in the note above. . copies to: [facility] Residency [facility]; Iglesia Love MD, Collin T DO October 18, 2016 13:09 Bry Larsen MD October 25, 2016 07:56
== END 2016-10-17 19:58 | disposition home or self-care (01) | DRG 853 ==
LOC: SED 19:03 → MPC 10-10 00:26 → PCC 10-11 15:54
PROVIDERS: ADMIT Internal Medicine; ATTEND Internal Medicine
PROC: 4A033R1 Measurement of Arterial Saturation, Peripheral, Percutaneous Approach (ICD-10-PCS; 2016-10-11)
PROC: 0BDN4ZZ Extraction of Right Pleura, Percutaneous Endoscopic Approach (ICD-10-PCS; 2016-10-12)
PROC: B24BZZ4 Ultrasonography of Heart with Aorta, Transesophageal (ICD-10-PCS; 2016-10-12)
PROC: 0W993ZX Drainage of Right Pleural Cavity, Percutaneous Approach, Diagnostic (ICD-10-PCS; principal; 2016-10-12 13:30)
DX: A40.0 Sepsis due to streptococcus, group A (principal); J15.4 Pneumonia due to other streptococci; J86.9 Pyothorax without fistula; G93.49 Other encephalopathy; J91.8 Pleural effusion in other conditions classified elsewhere; E87.1 Hypo-osmolality and hyponatremia; L03.115 Cellulitis of right lower limb; N39.0 Urinary tract infection, site not specified; F15.23 Other stimulant dependence with withdrawal; F11.23 Opioid dependence with withdrawal; L03.114 Cellulitis of left upper limb; B96.20 Unspecified Escherichia coli [E. coli] as the cause of diseases classified elsewhere; B95.0 Streptococcus, group A, as the cause of diseases classified elsewhere; F17.210 Nicotine dependence, cigarettes, uncomplicated; E03.9 Hypothyroidism, unspecified; R94.5 Abnormal results of liver function studies; F32.9 Major depressive disorder, single episode, unspecified; F41.9 Anxiety disorder, unspecified; B19.20 Unspecified viral hepatitis C without hepatic coma